=== PATIENT | male | born 1970 | race Two or more races ===

== ENCOUNTER 2020-04-12 06:30 | Day surgery (SDC) | payer OTHER, SELFPAY ==
--- NOTE | 2020-04-11 14:32 | HO.ANESPROP2 ---
Documented by User: Shahida Hackett 04/11/20 14:36 HPI - Anesthesia Eval Consult details Narrative: 49yo M for Spinal Stimulation Implant, Cervical s/p trial 08/11/19 with MAC PMFSH Past Medical History Medical History (Updated 04/11/20 @ 14:34 by Shahida Hackett) Bilateral carpal tunnel syndrome Depression Diabetes mellitus Elevated liver enzymes Insomnia Knee pain Low back pain Neck pain OSKAR on CPAP Polyarthralgia Pure hypercholesterolemia Family History Family History (Updated 03/07/20 @ 10:36 by GLORIA Thurston) Father Diabetes Hypertension Mother Diabetes Hypertension Maternal Grandmother Cancer Maternal Grandfather Cancer Paternal Uncle Stroke Brother No problems noted. Sister No problems noted. Sister No problems noted. Son No problems noted. Son No problems noted. Daughter No problems noted. Surgical History Surgical History (Updated 03/05/20 @ 12:50 by GLORIA Thurston) H/O shoulder surgery History of cervical spinal surgery Social History Social History Smoking Status: Former smoker Tobacco Type: Cigarette Use of substances other than those prescribed or required for medical reasons: No Advance Directives: No Advance Directives on File: No Meds Allergies Allergy/AdvReac Type Severity Reaction Status Date / Time aspirin [ASA] Allergy Severe ANAPHYLAXIS Unverified 03/07/20 11:13 gabapentin Allergy Unknown sore thoat Unverified 03/07/20 11:13 orphenadrine Allergy Unknown restless Unverified 03/07/20 11:13 legs ranitidine Allergy Unknown restless Verified 03/07/20 11:13 leg tramadol Allergy Unknown dry mouth, Verified 03/07/20 11:13 inadequate response Home Medications Medication Instructions Recorded Confirmed Type cane #1 ea 03/05/20 03/07/20 History cpap 6-16cm h20 #1 ea 03/05/20 03/07/20 History hydroxyzine HCl 25 mg tablet 25 mg PO BID 03/05/20 03/07/20 History trazodone 100 mg tablet 100 mg PO BEDTIME PRN 03/05/20 03/07/20 History vitamin E 200 unit capsule 400 unit PO DAILY cap 03/05/20 03/07/20 History blood sugar diagnostic #10 ea 03/07/20 03/07/20 History fluoxetine 20 mg capsule 60 mg PO DAILY 10/01/20 10/01/20 History hydroxyzine HCl 10 mg tablet 10 mg PO BID 03/07/20 03/07/20 History metformin tab PO 04/12/20 04/12/20 History Exam Exam Date and Time: April 11, 2020 1432 Pertinent Lab Results Pertinent Lab Results: Laboratory Tests 09/12/18 01/25/20 09:22 12:40 WBC 6.9 Hgb 14.2 Hct 42.6 Plt Count 212 Sodium 136 Potassium 4.4 Chloride 102 BUN 14 Creatinine 1.30 Assessment and Plan Assessment Anesthesia Assessment: Chart Reviewed Documented by User: Rowdy Ovalle 04/12/20 08:11 [facility] Past Medical History Medical History (Updated 04/11/20 @ 14:34 by Shahida Hackett) Bilateral carpal tunnel syndrome Depression Diabetes mellitus Elevated liver enzymes Insomnia Knee pain Low back pain Neck pain OSKAR on CPAP Polyarthralgia Pure hypercholesterolemia Family History Family History (Updated 03/07/20 @ 10:36 by GLORIA Thurston) Father Diabetes Hypertension Mother Diabetes Hypertension Maternal Grandmother Cancer Maternal Grandfather Cancer Paternal Uncle Stroke Brother No problems noted. Sister No problems noted. Sister No problems noted. Son No problems noted. Son No problems noted. Daughter No problems noted. Surgical History Surgical History (Updated 03/05/20 @ 12:50 by GLORIA Thurston) H/O shoulder surgery History of cervical spinal surgery Social History Social History Smoking Status: Former smoker Tobacco Type: Cigarette Use of substances other than those prescribed or required for medical reasons: No Advance Directives: No Advance Directives on File: No Meds Allergies Allergy/AdvReac Type Severity Reaction Status Date / Time aspirin [ASA] Allergy Severe ANAPHYLAXIS Unverified 03/07/20 11:13 gabapentin Allergy Unknown sore thoat Unverified 03/07/20 11:13 orphenadrine Allergy Unknown restless Unverified 03/07/20 11:13 legs ranitidine Allergy Unknown restless Verified 03/07/20 11:13 leg tramadol Allergy Unknown dry mouth, Verified 03/07/20 11:13 inadequate response Home Medications Medication Instructions Recorded Confirmed Type cane #1 ea 03/05/20 03/07/20 History cpap 6-16cm h20 #1 ea 03/05/20 03/07/20 History hydroxyzine HCl 25 mg tablet 25 mg PO BID 03/05/20 03/07/20 History trazodone 100 mg tablet 100 mg PO BEDTIME PRN 03/05/20 03/07/20 History vitamin E 200 unit capsule 400 unit PO DAILY cap 03/05/20 03/07/20 History blood sugar diagnostic #10 ea 03/07/20 03/07/20 History fluoxetine 20 mg capsule 60 mg PO DAILY 03/07/20 03/07/20 History hydroxyzine HCl 10 mg tablet 10 mg PO BID 03/07/20 03/07/20 History metformin tab PO 04/12/20 04/12/20 History Exam Airway Mallampati Class: III TM Dist: >3cm Neck ROM: Poor Heart: RRR Assessment and Plan Assessment Anesthesia Assessment: Anesthesia Plan Discussed (Minimal sedation per surgeon. Pt aware. ) Final Anesthetic Review NPO: Yes ASA Class: III Final Preanesthetic Review: No Changes in Pt Med Stat and Consent Obtained/Reviewed Anesthetic Plan Anesthetic Plan: MAC: Disposition: Standard PACU
[2020-04-12] VITALS (12 sets, daily range): BP systolic 98–121; BP diastolic 65–76; PULSE 70–87; RESP 16–18; TEMP 36.4–36.7; O2SAT 95–98; BMI 31.8
[2020-04-12 07:11] LABS: Glucose, Whole Blood 132 mg/dL (60-115)
[2020-04-12] MEDS: Lactated Ringers 1,000 ML 100 ML IVCONT (07:16)
--- NOTE | 2020-04-12 07:17 | FL_ITS ---
EXAMINATION: XR FLUOROSCOPY WITH IMAGES CLINICAL INFORMATION: Spinal stimulation implant. COMPARISON: None. TECHNIQUE: Fluoroscopy performed by Dr. Tricia Zapata. Fluoroscopy time: 8.1 minutes DAP: 55.0 mGycm2 Images: 3 FINDINGS: There are 3 digital images obtained revealing a spinal implant with 2 electrodes overlying C3-C5 vertebra. No gross bony abnormality seen. The paravertebral soft tissues are normal. FL/FL guidance in OR IMPRESSION: Fluoroscopy was provided to Dr. Tricia Zapata for spinal simulation implant.
--- NOTE | 2020-04-12 07:32 | MHC.SHP ---
Pre-Procedural Eval Section A The patient is an INPATIENT: No The History & Physical has been completed within 30 days and I have reviewed it.: No Section B Chief Complaint: SCS IMPLANT Details of Present Illness: cervial disk degeneranion, spondylosis of the cervical spine Relevant Family History (Specify if Yes): No Relevant Social History: None Present Medications: see Short Stay Collaborative assessment Medical History: No relevant PMH History of Previous Operations: Relevant previous surgery/procedure and date(s) Allergies: Allergies Allergy/AdvReac Type Severity Reaction Status Date / Time aspirin [ASA] Allergy Severe ANAPHYLAXIS Unverified 03/07/20 11:13 gabapentin Allergy Unknown sore thoat Unverified 03/07/20 11:13 orphenadrine Allergy Unknown restless Unverified 03/07/20 11:13 legs ranitidine Allergy Unknown restless Verified 03/07/20 11:13 leg tramadol Allergy Unknown dry mouth, Verified 03/07/20 11:13 inadequate response Review of Systems Sugical H&P ROS: Negative: Constitution, Cardiovascular, Respiratory, Neurological, Psychiatric, Hem-Onc, Allergic/Immunologic, Gastrointestinal, Genitourinary, Musculoskeletal, Integumentary, Endocrine and Eyes/Ears/Nose/Throat Exam Surgical H&P Exam: Normal: HEENT, Normal: Heart, Normal: Lungs, Normal: Extremities, Normal: Abdomen, Normal: Skin and Normal: Neurological Plan Diagnosis/Plan: Unchanged Patient has been examined and remains a candidate for the planned procedure
--- NOTE | 2020-04-12 11:40 | PM.OP ---
Brief Operative Note Date of procedure: 04/12/20 Pre-op diagnosis: ddd cervical spine, postlaminectomy syndrome, spondylosis cervical spine with radiculopathy. Post-op diagnosis: same Procedure: Implantation of spinal cord stimulator [employer] with to cervical leads and montage battery. Implants: As above Surgeon: Jeffrey Mann MD Anesthesia: MAC Estimated blood loss (mL): 20 Condition: stable Disposition: PACU
[2020-04-12] MEDS: oxyCODONE HCl Immed Release 5 MG TABLET 10 MG PO (12:25)
[2020-04-12] MEDS: fentaNYL citrate/PF 100 MCG/2 ML VIAL 50 MCG IVPUSH ×2 (12:25→12:30)
--- NOTE | 2020-04-12 13:22 | HO.POSTANES ---
Post Anesthesia Evaluation Post Anesthesia Evaluation Vital Signs: Vital Signs Temp Pulse Resp BP Pulse Ox 04/12/20 13:18 82 18 98/67 97 04/12/20 13:05 74 16 116/71 96 04/12/20 12:50 73 16 117/76 96 04/12/20 12:35 70 16 108/65 95 04/12/20 12:30 75 18 112/70 96 04/12/20 12:25 74 18 116/68 98 04/12/20 12:10 75 16 104/68 96 04/12/20 11:55 81 18 100/67 96 04/12/20 11:50 77 18 107/67 96 04/12/20 11:45 78 18 106/65 97 04/12/20 11:40 97.6 F 87 18 116/70 97 04/12/20 06:54 98.0 F 82 18 121/73 98 Anesthesia: Monitored Mental Status: Awake Pain Control: Satisfactory Nausea/Vomiting: None Hydration: Adequate Anesthesia-Related Issues: No Anes. Related Issues
--- NOTE | 2020-04-12 16:08 | P.OP_ITS ---
Operative Note Operative Note Narrative: Implantion of the spinal cord stimulator [employer] cervical position. Preoperatively patient received _2 g cefazolin _approximately 30 minutes before the procedure. After obtaining informed consent patient was brought to the operating room, she was positioned prone on operating table, [employer] monitors were applied and patient was deeply sedated. Time-out was performed delineating correct site, side, the nature of the procedure, patient's allergy, preoperative antibiotic. All operating room staff was participating in OR time-out procedure. Patient's entire back was prepped with ChloraPrep twice and draped with full body drape including Ioban film. Sterilely draped C-arm was brought over operating field and sqare picture of T6-T7 T8 vertebrae as were demonstrated on the screen. THE PROJECTION OF T7-T8 SPINAL PROCESSES TO THE SKIN WERE INFILTRATED WITH LIDOCAINE 2% MIXED WITH BUPIVACAINE 0.5%. Six CM LONG VERTICAL INCISION using 15 blade scalpel WAS PERFORMED IN STRICT MIDLINE VERTICAL FASHION. THOROUGH HEMOSTASIS WAS PERFORMED using electrocautery. Thorough tissue dissections was performed until prevertebral fascia was freed from overlying tissues. Attention FIRST was concentrated on the LEFT T6-T7 epidural interspace. The location of the projection of the right pedicle center of the T8 vertebra ON THE LEFT was found on the prevertebral fascia using C- arm. This location was injected with mixture of lidocaine 2% and Marcaine 0.5% 5 cc in approximate direction of needle advancement. After that 10 cm 14 gauge STRAIGHT introducer epidural needle was inserted through the fascia and advanced toward T12-L1 epidural interspace. The advancement of the needle was performed on anterior posterior and lateral views. Guitar wire and loss of resistance technique were used to locate epidural space. When guitar wire was spread in the epidural fashion, epidural lead was inserted through the skin and it was advanced to C3 position POSTERIOR EPIDURAL SPACE STRICTLY TO THE MIDLINE. significant difficulties were encountered with lead advancement, they were overcome by replacing the needle for the blue sheath introducer and advancing the lead with intermittent use of straight and curved stylets. THE POSITION OF THE LEAD WAS VERIFIED IN ANTERIOR POSTERIOR AND LATERAL VIEWS. After that location of the projection of the LEFT pedicle center of the T9 vertebra was found -using C-arm. This location was injected with mixture of lidocaine 2% and Marcaine 0.5% 5 cc.. . 10 cm 14 gauge curved introducer epidural needle was inserted through the fascia and advanced to T7-T8 epidural interspace. The advancement of the needle was performed on anterior posterior and lateral views. Guitar wire and loss of resistance technique were used to locate epidural space. When guitar wire was spread in the epidural fashion, epidural lead was inserted through the needle and advanced to the T8 POSTERIOR EPIDURAL SPACE SLIGHTLY right TO THE MIDLINE position 1st electrode. THE LOC ATION OF BOTH LEADS WAS VERIFIED ON ANTERIOR POSTERIOR AND LATERAL VIEWS. At this moment patient was awaken and the epidural leads were connected to the testing device. The patient reported stimulation corresponding to his pain. After satisfactory position of the leads were established the needle and blue sheath introducer were withdrawn, the stylette wires were removed from the epidural leads. The anchoring devices were dislodged on the leads and advanced to the level of the prevertebral fascia. The anchoring devices were advanced along the epidural leads and dislodged and epidural leads at the level of prevertebral fascia. They were sutured to prevertebral fascia with 2 separate Tycron sutures per each anchoring device. the locking screw on each anchoring device was tied after proper fixation of the anchoring device to the fascia was achieved. After that the wound was irrigated with copious amount of Vancomycin containing normal saline and packed with Vancomycin soaked 4 x 4. After that attention was concentrated on the Left loin. The patient wanted this battery in that position. . 6 cm long horizontal incision was performed 4 cm below the lowest position of the posterior rib on the left. Thorough hemostasis was obtained. The wound was irrigated with copious amount of Vancomycin contained normal saline. Tunneling device was used to connect the 2 wounds and epidural leads were dislodged into side wound. They were connected to the Montage battery and locked with a locking screwdriver device. After that the anchoring sutures Tycron were applied in the most superior medial and most superior lateral corners of the wound. After that they were connected to the anchoring holes on the body of the battery, the epidural leads were gathered behind the body of the montage battery, the battery and the leads were inserted into the pocket wound and after that the anchoring 2 sutures were tied. The wounds were irrigated again with Vancomycin containing normal saline, thorough hemostasis was checked, and after that the wounds were closed using 0 Polysorb. After that the skin edges wore approximated using 2 0 polysorb, eva were applied to the wounds at the level of the skin. Bacitracin ointment was applies to the level of the eva and sterile dressings were applied to the staple lines. MediPort tape were applied to hold the dressing to the patient's skin. Abdominal binder to wear was provided to the patient. cervical collar was given to the patient to wear as well. At this moment patient was awaken and padron sferred to the bed. He was recovering uneventfully in PACU.
== END 2020-04-12 13:50 | disposition home or self-care (01) ==
PROVIDERS: PCP Internal Medicine; Visit Provider Anesthesiology
PROC: (CPT 63685; principal; 2020-04-12 07:30)
DX: M54.12 Radiculopathy, cervical region (principal); M96.1 Postlaminectomy syndrome, not elsewhere classified; M75.41 Impingement syndrome of right shoulder; G47.33 Obstructive sleep apnea (adult) (pediatric); E11.9 Type 2 diabetes mellitus without complications; Z79.84 Long term (current) use of oral hypoglycemic drugs; Z79.899 Other long term (current) drug therapy; Z99.89 Dependence on other enabling machines and devices; Z88.8 Allergy status to other drugs, medicaments and biological substances; Z87.891 Personal history of nicotine dependence
CPT/HCPCS: 63685; 63650 ×2; 82947; C1778; J0131; J0690; J2250; J3010; J3370

== ENCOUNTER → 2020-04-18 12:54 | Outpatient (BNVA) | payer OTHER, SELFPAY | PROVIDERS: PCP Internal Medicine; Referring Provider Internal Medicine; Visit Provider Anesthesiology | DX: Z48.89 Encounter for other specified surgical aftercare (principal); M54.12 Radiculopathy, cervical region; M96.1 Postlaminectomy syndrome, not elsewhere classified; M54.16 Radiculopathy, lumbar region; M75.41 Impingement syndrome of right shoulder | CPT/HCPCS: 99212 ==

== ENCOUNTER → 2020-04-25 12:53 | Outpatient (BNVA) | payer OTHER, SELFPAY | PROVIDERS: PCP Internal Medicine; Referring Provider Internal Medicine; Visit Provider Anesthesiology | DX: Z48.89 Encounter for other specified surgical aftercare (principal); Z48.01 Encounter for change or removal of surgical wound dressing; M54.12 Radiculopathy, cervical region; M75.41 Impingement syndrome of right shoulder; M96.1 Postlaminectomy syndrome, not elsewhere classified; M54.16 Radiculopathy, lumbar region | CPT/HCPCS: 99212 ==

== ENCOUNTER 2020-05-15 14:13 | Outpatient (REF) | payer OTHER, SELFPAY | END 2020-05-15 14:14 | disposition home or self-care (01) | LOC: HO.LAB 14:13 | PROVIDERS: Visit Provider Internal Medicine | DX: Z20.828 Contact with and (suspected) exposure to other viral communicable diseases (principal) | CPT/HCPCS: C9803; U0003 ==

== ENCOUNTER 2020-06-14 14:52 | Outpatient (REF) | payer OTHER, SELFPAY ==
[2020-06-14 16:17] LABS: INTERNATIONAL NORM RATIO 1.1 (0.9-1.1); Prothrombin Time 12.6 SEC (10.8-13.0)
[2020-06-14 16:23] LABS: Alanine Aminotransferase 185 U/L (0-40); Albumin Level 4.3 g/dL (3.5-5.0); Alkaline Phosphatase 86 U/L (39-117); Aspartate Amino Transferase 65 U/L (5-37); Bilirubin Direct 0.2 mg/dL (0.0-0.5); Bilirubin Total 0.4 mg/dL (0.0-1.0); Total Protein 7.2 g/dL (6.5-8.0)
[2020-06-14 16:25] LABS: Alanine Aminotransferase 185 U/L (0-40); Albumin Level 4.3 g/dL (3.5-5.0); Alkaline Phosphatase 87 U/L (39-117); Anion Gap 13 (12-20); Aspartate Amino Transferase 67 U/L (5-37); Bilirubin Total 0.4 mg/dL (0.0-1.0); Blood Urea Nitrogen 15 mg/dL (9-16); Calcium 8.9 mg/dL (8.4-10.2); Carbon Dioxide 26 mmol/L (22-29); Chloride 101 mmol/L (96-108); Cholesterol 202 mg/dL; Estimated Glomerular Filt Rate > 60; Glucose Fasting 215 mg/dL (60-99); HDL Cholesterol 38 mg/dL; LDL Cholesterol Calculated 116 mg/dl; Potassium 4.7 mmol/l (3.3-5.1); Sodium 135 mmol/L (135-145); Total Protein 7.1 g/dL (6.5-8.0); Triglycerides 244 mg/dL
[2020-06-14 16:48] LABS: Creatinine Urine 194.14 mg/dL; Microalbum/Creatinine Ratio Ur 2.5 ug/mg cr
== END 2020-06-14 14:53 | disposition home or self-care (01) ==
LOC: HO.LAB 14:52
PROVIDERS: PCP Internal Medicine; Visit Provider Internal Medicine
DX: E11.9 Type 2 diabetes mellitus without complications (principal); K76.0 Fatty (change of) liver, not elsewhere classified; R74.8 Abnormal levels of other serum enzymes
CPT/HCPCS: 36415; 80053; 80061; 80076; 82043; 82248; 85610

== ENCOUNTER 2020-07-05 11:06 | Outpatient (REF) | payer OTHER, SELFPAY ==
[2020-07-05 12:31] LABS: Alanine Aminotransferase 146 U/L (0-40); Albumin Level 4.3 g/dL (3.5-5.0); Alkaline Phosphatase 81 U/L (39-117); Anion Gap 12 (12-20); Aspartate Amino Transferase 52 U/L (5-37); Blood Urea Nitrogen 12 mg/dL (9-16); Calcium 9.2 mg/dL (8.4-10.2); Carbon Dioxide 28 mmol/L (22-29); Chloride 103 mmol/L (96-108); Cholesterol 200 mg/dL; Estimated Glomerular Filt Rate > 60; Glucose Fasting 125 mg/dL (60-99); HDL Cholesterol 38 mg/dL; LDL Cholesterol Calculated 131 mg/dl; Potassium 4.7 mmol/L (3.3-5.1); Sodium 138 mmol/L (135-145); Total Protein 7.2 g/dL (6.5-8.0); Triglycerides 155 mg/dL
== END 2020-07-05 11:07 | disposition home or self-care (01) ==
LOC: HO.LAB 11:06
PROVIDERS: PCP Internal Medicine; Visit Provider Internal Medicine
DX: E11.9 Type 2 diabetes mellitus without complications (principal)
CPT/HCPCS: 36415; 80053; 80061; 82043

== ENCOUNTER 2020-07-10 10:30 | Outpatient (REF) | payer OTHER, SELFPAY ==
[2020-07-10 10:54] LABS: MANUAL DIFF FLAG NO
[2020-07-10 11:01] LABS: Basophils Percent Auto 0.4 % (0-2); Eosinophils Absolute Auto 0.2 X10*3/uL (0.0-0.4); Eosinophils Percent Auto 2.1 % (0-4); Hematocrit 44.2 % (42-52); Hemoglobin 14.3 g/dl (14.0-18.0); Imm Gran Abs Auto 0.01 X10*3/uL (0.00-0.03); Imm Gran Pct Auto 0.1 % (0.0-0.4); Lymphocytes Absolute Auto 2.2 X10*3/uL (1.2-4.9); Lymphocytes Percent Auto 31.3 % (20-40); Mean Corpuscular HGB Conc 32.4 g/dl (31.0-36.0); Mean Corpuscular Hemoglobin 26.5 pg (27.0-33.0); Mean Corpuscular Volume 81.9 fL (80-98); Monocytes Absolute Auto 0.6 X10*3/uL (0.1-1.2); Monocytes Percent Auto 8.7 % (2-11); Neutrophils Absolute Auto 4.1 X10*3/uL (2.0-8.3); Neutrophils Percent Auto 57.4 % (45-73); Platelet Count 216 X10*3/uL (160-400); Red Cell Distribution Width 12.3 % (11.0-16.0); White Blood Count 7.1 X10*3/uL (4.8-10.8)
[2020-07-10 11:28] LABS: Alanine Aminotransferase 119 U/L (0-40); Albumin Level 4.2 g/dL (3.5-5.0); Alkaline Phosphatase 80 U/L (39-117); Aspartate Amino Transferase 47 U/L (5-37); Bilirubin Direct 0.3 mg/dL (0.0-0.5); Bilirubin Total 0.7 mg/dL (0.0-1.0)
[2020-07-10 11:41] LABS: Partial Thromboplastin Time 33.8 SEC (24.1-38.0)
== END 2020-07-10 10:31 | disposition home or self-care (01) ==
LOC: HO.LAB 10:30
PROVIDERS: PCP Internal Medicine; Visit Provider Internal Medicine
DX: K76.0 Fatty (change of) liver, not elsewhere classified (principal); R79.89 Other specified abnormal findings of blood chemistry
CPT/HCPCS: 36415; 80076; 85025; 85610; 85730

== ENCOUNTER 2020-07-15 07:35 | Day surgery (SDC) | payer OTHER, SELFPAY ==
[2020-07-15] VITALS (9 sets, daily range): BP systolic 103–128; BP diastolic 69–81; PULSE 68–79; RESP 13–16; TEMP 36.4–36.6; O2SAT 93–98; BMI 31.2
--- NOTE | ~2020-07-15 | US_ITS ---
EXAMINATION: ULTRASOUND-GUIDED LIVER CORE BIOPSY CLINICAL INFORMATION: Elevated LFTs . Fatty liver COMPARISON: None TECHNIQUE: Following explaining ultrasound-guided liver biopsy procedure, benefits and risk to the patient, a written consent was obtained. Patient was placed supine on ultrasound stretcher and preliminary ultrasound imaging was obtained. An optimal site was selected along the intercostal margin laterally and marked. The marked site was cleaned and draped in usual sterile manner. 1% lidocaine was injected puncture site. Through a small skin incision a 13-gauge guide needle was advanced skin patient to hold breath under sterile ultrasound guidance. After observing needle tip in the liver, stylet was withdrawn and a second 18-gauge biopsy needle was advanced through the guide needle and a 2 pass core biopsies performed. Postprocedure the guide needle was withdrawn and complete hemostasis achieved at puncture site. Patient on procedure extremely well. Conscious sedation with 1 mg of Versed and 15 mg of fentanyl was administered during the exam. FINDINGS: On initial liver imaging there is diffuse infiltration of liver with no focal lesion or intrahepatic ductal dilatation seen. Coaxial right hepatic lobe core biopsy was performed x2. Sample collected and sent to lab for further analysis. US/US biopsy liver IMPRESSION: Successful ultrasound-guided hepatic lobe 2 pass core biopsy performed with 18-gauge needle. There were no immediate complications.
[2020-07-15 08:17] LABS: Glucose, Whole Blood 136 mg/dL (60-115)
[2020-07-15 08:29] LABS: MANUAL DIFF FLAG NO
[2020-07-15 08:36] LABS: Basophils Percent Auto 0.4 % (0-2); Eosinophils Absolute Auto 0.2 X10*3/uL (0.0-0.4); Eosinophils Percent Auto 1.8 % (0-4); Hematocrit 45.8 % (42-52); Hemoglobin 14.6 g/dl (14.0-18.0); Imm Gran Abs Auto 0.02 X10*3/uL (0.00-0.03); Imm Gran Pct Auto 0.2 % (0.0-0.4); Lymphocytes Absolute Auto 2.6 X10*3/uL (1.2-4.9); Lymphocytes Percent Auto 28.7 % (20-40); Mean Corpuscular HGB Conc 31.9 g/dl (31.0-36.0); Mean Corpuscular Hemoglobin 26.4 pg (27.0-33.0); Mean Corpuscular Volume 82.8 fL (80-98); Mean Platelet Volume 10.2 fL (9.4-12.4); Monocytes Absolute Auto 0.7 X10*3/uL (0.1-1.2); Monocytes Percent Auto 7.9 % (2-11); Neutrophils Absolute Auto 5.6 X10*3/uL (2.0-8.3); Platelet Count 246 X10*3/uL (160-400); Red Blood Count 5.53 X10*6/uL (4.60-5.80); Red Cell Distribution Width 12.1 % (11.0-16.0); White Blood Count 9.1 X10*3/uL (4.8-10.8)
[2020-07-15 08:40] LABS: Prothrombin Time 12.1 SEC (10.8-13.0)
[2020-07-15 08:43] LABS: Partial Thromboplastin Time 35.5 SEC (24.1-38.0)
== END 2020-07-15 14:16 | disposition home or self-care (01) ==
PROVIDERS: Radiology Diagnostic Radiology; PCP Internal Medicine; Visit Provider Radiology Diagnostic Radiology
DX: R94.5 Abnormal results of liver function studies (principal); K76.0 Fatty (change of) liver, not elsewhere classified; E11.9 Type 2 diabetes mellitus without complications
CPT/HCPCS: 36415; 47000; 76942; 82947; 85025; 85610; 85730; 88307; 88313; 99152; J2250; J3010

== ENCOUNTER 2020-07-24 10:55 | Outpatient (REF) | payer OTHER, SELFPAY ==
--- NOTE | ~2020-07-24 | XR_ITS ---
EXAMINATION: BILATERAL KNEE X-RAY CLINICAL INFORMATION: Pain COMPARISON: Previous exam August 2017 TECHNIQUE: 3 views each knee FINDINGS: Right: Bone alignment is normal. No fracture or dislocation is seen. Joint spaces are normal. There is a small osteophyte at the quadriceps tendon insertion to the patella. There is no joint effusion. Left knee: Bone alignment is normal. No fracture or dislocation is seen. Joint spaces are normal. There is an osteophyte at the quadriceps tendon insertion to the patella. There is no joint effusion. There is soft tissue calcification lateral to the knee joint. XR/XR knee RT 3V IMPRESSION: Bilateral osteophytes at the quadriceps tendon insertion to the patella, left greater than right. Otherwise unremarkable exam.
--- NOTE | ~2020-07-24 | XR_ITS ---
EXAMINATION: XR SHOULDER, RIGHT CLINICAL INFORMATION: Pain COMPARISON: Previous right shoulder x-ray October 2018 TECHNIQUE: AP external rotation, Grashey, scapular Y, and axillary views of the right shoulder. FINDINGS: Bone alignment is normal. No fracture or dislocation is seen. There is a surgical anchor or tack projecting over the humeral head. Joint spaces are normal. Soft tissues are normal. XR/XR shoulder RT min 2V IMPRESSION: Surgical anchor or tack projecting over the right humeral head. Otherwise unremarkable exam.
--- NOTE | ~2020-07-24 | XR_ITS ---
EXAMINATION: BILATERAL KNEE X-RAY CLINICAL INFORMATION: Pain COMPARISON: Previous exam August 2017 TECHNIQUE: 3 views each knee FINDINGS: Right: Bone alignment is normal. No fracture or dislocation is seen. Joint spaces are normal. There is a small osteophyte at the quadriceps tendon insertion to the patella. There is no joint effusion. Left knee: Bone alignment is normal. No fracture or dislocation is seen. Joint spaces are normal. There is an osteophyte at the quadriceps tendon insertion to the patella. There is no joint effusion. There is soft tissue calcification lateral to the knee joint. XR/XR knee LT 3V IMPRESSION: Bilateral osteophytes at the quadriceps tendon insertion to the patella, left greater than right. Otherwise unremarkable exam.
== END 2020-07-24 10:56 | disposition home or self-care (01) ==
LOC: HO.XRAY 10:55
PROVIDERS: PCP Internal Medicine; Visit Provider Internal Medicine
DX: M25.561 Pain in right knee (principal); M25.562 Pain in left knee; M25.511 Pain in right shoulder
CPT/HCPCS: 73030; 73562

== ENCOUNTER → 2020-07-25 11:26 | Outpatient (BNVA) | payer OTHER, SELFPAY | PROVIDERS: Visit Provider Orthopaedic Surgery | DX: M25.511 Pain in right shoulder (principal); M25.50 Pain in unspecified joint; M96.1 Postlaminectomy syndrome, not elsewhere classified; E11.9 Type 2 diabetes mellitus without complications | CPT/HCPCS: 20610; 99212; J1100 ==

== ENCOUNTER 2020-10-15 11:12 | Outpatient (REF) | payer OTHER, SELFPAY ==
[2020-10-15 12:19] LABS: Alanine Aminotransferase 51 U/L (0-40); Albumin Level 4.3 g/dL (3.5-5.0); Alkaline Phosphatase 86 U/L (39-117); Aspartate Amino Transferase 27 U/L (5-37); Bilirubin Direct 0.3 mg/dL (0.0-0.5); Total Protein 7.1 g/dL (6.5-8.0)
[2020-10-15 12:23] LABS: Creatinine Urine 290.99 mg/dL; Microalbum/Creatinine Ratio Ur 2.4 ug/mg cr
[2020-10-15 12:57] LABS: Alanine Aminotransferase 51 U/L (0-40); Albumin Level 4.3 g/dL (3.5-5.0); Alkaline Phosphatase 86 U/L (39-117); Anion Gap 13 (12-20); Aspartate Amino Transferase 27 U/L (5-37); Bilirubin Total 1.1 mg/dL (0.0-1.0); Blood Urea Nitrogen 17 mg/dL (9-16); Calcium 9.3 mg/dL (8.4-10.2); Carbon Dioxide 27 mmol/L (22-29); Chloride 102 mmol/L (96-108); Cholesterol 212 mg/dL; Estimated Glomerular Filt Rate > 60; Glucose Fasting 98 mg/dL (60-99); HDL Cholesterol 37 mg/dL; LDL Cholesterol Calculated 145 mg/dl; Potassium 4.7 mmol/L (3.3-5.1); Sodium 137 mmol/L (135-145); Total Protein 7.1 g/dL (6.5-8.0); Triglycerides 154 mg/dL
== END 2020-10-15 11:13 | disposition home or self-care (01) ==
LOC: HO.LAB 11:12
PROVIDERS: Absent Provider Internal Medicine; PCP Internal Medicine; Visit Provider Internal Medicine
DX: E11.9 Type 2 diabetes mellitus without complications (principal); E78.5 Hyperlipidemia, unspecified; K76.0 Fatty (change of) liver, not elsewhere classified; R74.8 Abnormal levels of other serum enzymes
CPT/HCPCS: 36415; 80053; 80061; 80076; 82043; 82248

== ENCOUNTER → 2020-10-24 11:24 | Outpatient (BNVA) | payer OTHER, SELFPAY | PROVIDERS: PCP Internal Medicine; Visit Provider Orthopaedic Surgery | DX: Z98.890 Other specified postprocedural states (principal) | CPT/HCPCS: 99212 ==

== ENCOUNTER → 2020-10-28 10:04 | Outpatient (BNVA) | payer OTHER, SELFPAY | PROVIDERS: PCP Internal Medicine; Visit Provider Anesthesiology | DX: M96.1 Postlaminectomy syndrome, not elsewhere classified (principal); M54.12 Radiculopathy, cervical region; M75.41 Impingement syndrome of right shoulder; M54.16 Radiculopathy, lumbar region | CPT/HCPCS: 99212 ==

== ENCOUNTER 2020-11-06 10:23 | Outpatient (REF) | payer OTHER, SELFPAY ==
--- NOTE | ~2020-11-06 | XR_ITS ---
EXAMINATION: XR CERVICAL SPINE CLINICAL INFORMATION: Post laminectomy syndrome. COMPARISON: None TECHNIQUE: Three views of the cervical spine were obtained. FINDINGS: There is mild straightening of cervical lordosis. There is ventral plate and screws from C5 through C6 vertebrae for fusion with integration of intervening bone graft. There is a posterior epidural electrode extending to the C3 superior endplate. There is no visible acute fracture, dislocation or subluxation seen. The soft tissues are unremarkable. XR/XR cervical spine 2V IMPRESSION: C5 and C6 disc fusion with ventral plate and screws in satisfactory alignment. There are posterior epidural electrodes with their tips extending to the C3 superior endplate. No visible acute fracture, dislocation or subluxation seen.
== END 2020-11-06 10:24 | disposition home or self-care (01) ==
LOC: HO.XRAY 10:23
PROVIDERS: PCP Internal Medicine; Visit Provider Anesthesiology
DX: M54.12 Radiculopathy, cervical region (principal); M96.1 Postlaminectomy syndrome, not elsewhere classified
CPT/HCPCS: 72040

== ENCOUNTER 2020-11-22 12:42 | Outpatient (REF) | payer OTHER, SELFPAY ==
--- NOTE | ~2020-11-22 | MR_ITS ---
EXAMINATION: MR SHOULDER WITHOUT CONTRAST, RIGHT CLINICAL INFORMATION: History of rotator cuff repair. Right shoulder pain. Decreased range of motion. COMPARISON: Right shoulder MRI dated August 22, 2018. Right shoulder radiograph dated 07/24/2020. TECHNIQUE: MRI of the shoulder without contrast was performed on a high-field scanner. FINDINGS: Rotator cuff: Sequelae of prior rotator cuff repair. Low-grade articular surface fraying the mid infraspinatus tendon fibers (6:14). Mild tendon attenuation at the supraspinatus/infraspinatus junction. No evidence of full-thickness re-tear. Mild subscapularis tendinosis. Intact teres minor tendon. No rotator cuff muscle atrophy or fatty infiltration is identified. Labrum: No labral tear is identified. Posterior labrum is diminutive, unchanged. Biceps: The long head biceps tendon is positioned within the bicipital groove, with the contour, course, caliber, and signal intensity within normal limits. Ligament/Capsule: No capsular thickening or pericapsular edema. Rotator cuff interval fat is preserved. Bone/Cartilage: No Hill Sachs or osseous Bankart lesion is identified. The bone marrow signal intensity is within normal limits. No full-thickness cartilage defect is seen. Acromioclavicular joint: There is no acromioclavicular hypertrophy. No subjacent marrow edema. Type II acromial morphology with postsurgical decompression changes. No associated subacromial osteophyte formation is noted. Miscellaneous: No subacromial/subdeltoid bursal fluid accumulation. Quadrilateral space, suprascapular notch and spinoglenoid notch are normal in appearance. MR/MR shoulder RT wo con IMPRESSION: Right shoulder: 1. Sequelae of prior rotator cuff repair. Mild attenuation of the tendons at the supraspinatus/infraspinatus junction presumed sequelae of prior repair. Low grade articular surface fraying in the posterior infraspinatus tendon fibers. Mild subscapularis tendinosis. 2. Normal long head biceps tendon and intact biceps labral complex. 3. Intact labrum. 4. Preserved glenohumeral joint articular cartilage. 5. No significant acromioclavicular joint arthrosis.
== END 2020-11-22 12:43 | disposition home or self-care (01) ==
LOC: HO.MRI 12:42
PROVIDERS: Visit Provider Orthopaedic Surgery
DX: Z98.890 Other specified postprocedural states (principal)
CPT/HCPCS: 73221

== ENCOUNTER 2020-11-29 11:13 | Outpatient (REF) | payer OTHER, SELFPAY ==
[2020-11-29 12:47] LABS: Alanine Aminotransferase 45 U/L (0-40); Albumin Level 4.1 g/dL (3.5-5.0); Alkaline Phosphatase 81 U/L (39-117); Aspartate Amino Transferase 26 U/L (5-37); Bilirubin Direct 0.2 mg/dL (0.0-0.5); Bilirubin Total 0.5 mg/dL (0.0-1.0)
== END 2020-11-29 11:14 | disposition home or self-care (01) ==
LOC: HO.LAB 11:13
PROVIDERS: PCP Internal Medicine; Visit Provider Internal Medicine
DX: K76.0 Fatty (change of) liver, not elsewhere classified (principal); R74.8 Abnormal levels of other serum enzymes
CPT/HCPCS: 36415; 80076

== ENCOUNTER → 2020-12-02 14:46 | Outpatient (BNVA) | payer OTHER, SELFPAY | PROVIDERS: PCP Internal Medicine; Visit Provider Orthopaedic Surgery | DX: Z98.890 Other specified postprocedural states (principal) | CPT/HCPCS: 99212 ==

== ENCOUNTER 2021-04-28 09:43 | Outpatient (REF) | payer OTHER, SELFPAY ==
[2021-04-28 09:57] LABS: MANUAL DIFF FLAG NO
[2021-04-28 10:11] LABS: Basophils Percent Auto 0.5 % (0-2); Eosinophils Absolute Auto 0.2 X10*3/uL (0.0-0.4); Eosinophils Percent Auto 3.3 % (0-4); Hematocrit 43.1 % (42.0-52.0); Hemoglobin 13.9 g/dl (14.0-18.0); Imm Gran Abs Auto 0.01 X10*3/uL (0.00-0.03); Imm Gran Pct Auto 0.2 % (0.0-0.4); Lymphocytes Absolute Auto 1.6 X10*3/uL (1.2-4.9); Lymphocytes Percent Auto 25.8 % (20-40); Mean Corpuscular HGB Conc 32.3 g/dl (31.0-36.0); Mean Corpuscular Hemoglobin 26.6 pg (27.0-33.0); Mean Corpuscular Volume 82.6 fL (80.0-98.0); Mean Platelet Volume 9.8 fL (9.4-12.4); Monocytes Absolute Auto 0.6 X10*3/uL (0.1-1.2); Monocytes Percent Auto 9.8 % (2-11); Neutrophils Absolute Auto 3.8 x10*3/uL (2.0-8.3); Neutrophils Percent Auto 60.4 % (45-73); Platelet Count 231 X10*3/uL (160-400); Red Blood Count 5.22 X10*6/uL (4.60-5.80); Red Cell Distribution Width 12.2 % (11.0-16.0); White Blood Count 6.4 X10*3/uL (4.8-10.8)
[2021-04-28 10:37] LABS: Alanine Aminotransferase 47 U/L (0-40); Albumin Level 4.3 g/dL (3.5-5.0); Alkaline Phosphatase 82 U/L (39-117); Aspartate Amino Transferase 24 U/L (5-37); Bilirubin Direct 0.2 mg/dL (0.0-0.5); Bilirubin Total 0.4 mg/dL (0.0-1.0); Cholesterol 224 mg/dL; HDL Cholesterol 32 mg/dL; LDL Cholesterol Calculated 162 mg/dl; Total Protein 7.2 g/dL (6.5-8.0); Triglycerides 153 mg/dL
[2021-04-28 10:50] LABS: Creatinine Urine 408.51 mg/dL; Microalbum/Creatinine Ratio Ur 3.4 ug/mg cr
[2021-05-02 14:11] LABS: Vitamin D 25-OH, D2 <4 ng/mL; Vitamin D 25-OH, D3 26 ng/mL; Vitamin D 25-OH, Total 26 ng/mL (30-100)
== END 2021-04-28 09:44 | disposition home or self-care (01) ==
LOC: HO.LAB 09:43
PROVIDERS: Absent Provider Internal Medicine; PCP Internal Medicine; Visit Provider Internal Medicine
DX: M25.511 Pain in right shoulder (principal); E78.5 Hyperlipidemia, unspecified; E55.9 Vitamin D deficiency, unspecified; K76.0 Fatty (change of) liver, not elsewhere classified; R74.8 Abnormal levels of other serum enzymes; E11.9 Type 2 diabetes mellitus without complications
CPT/HCPCS: 36415; 80061; 80076; 82043; 82306; 85025

== ENCOUNTER 2022-02-17 10:04 | Outpatient (REF) | payer MEDICARE, MEDICAID, SELFPAY ==
[2022-02-17 11:17] LABS: Alanine Aminotransferase 88 U/L (0-40); Albumin Level 4.4 g/dL (3.5-5.0); Alkaline Phosphatase 86 U/L (39-117); Anion Gap 15 (12-20); Aspartate Amino Transferase 37 U/L (5-37); Bilirubin Total 0.6 mg/dL (0.0-1.0); Blood Urea Nitrogen 14 mg/dL (9-16); Calcium 9.8 mg/dL (8.4-10.2); Carbon Dioxide 29 mmol/L (22-29); Chloride 99 mmol/L (96-108); Cholesterol 239 mg/dL; Estimated Glomerular Filt Rate > 60; Glucose Fasting 158 mg/dL (60-99); HDL Cholesterol 35 mg/dL; LDL Cholesterol Calculated 156 mg/dl; Potassium 4.8 mmol/L (3.3-5.1); Sodium 138 mmol/L (135-145); Total Protein 7.5 g/dL (6.5-8.0); Triglycerides 240 mg/dL
[2022-02-17 11:29] LABS: Vitamin D 25-OH Total 35.4 ng/mL (>30)
[2022-02-17 12:44] LABS: Creatinine Urine 246.17 mg/dL; Microalbum/Creatinine Ratio Ur 3.6 ug/mg cr
== END 2022-02-17 10:05 | disposition home or self-care (01) ==
LOC: HO.LAB 10:04
PROVIDERS: PCP Internal Medicine; Visit Provider Internal Medicine
DX: E11.9 Type 2 diabetes mellitus without complications (principal); E55.9 Vitamin D deficiency, unspecified; E78.5 Hyperlipidemia, unspecified
CPT/HCPCS: 36415; 80053; 80061; 82043; 82306

== ENCOUNTER 2022-05-14 11:47 | Outpatient (REF) | payer MEDICARE, MEDICAID, SELFPAY ==
[2022-05-14 16:05] LABS: Microalbum/Creatinine Ratio Ur 4.2 ug/mg cr
[2022-05-14 18:36] LABS: Alanine Aminotransferase 88 U/L (0-40); Albumin Level 4.2 g/dL (3.5-5.0); Alkaline Phosphatase 88 U/L (39-117); Anion Gap 11 (12-20); Aspartate Amino Transferase 43 U/L (5-37); Bilirubin Total 0.6 mg/dL (0.0-1.0); Blood Urea Nitrogen 11 mg/dL (9-16); Calcium 9.2 mg/dL (8.4-10.2); Carbon Dioxide 30 mmol/L (22-29); Chloride 102 mmol/L (96-108); Cholesterol 227 mg/dL; Estimated Glomerular Filt Rate > 60; Glucose Fasting 128 mg/dL (60-99); HDL Cholesterol 32 mg/dL; LDL Cholesterol Calculated 148 mg/dl; Potassium 4.6 mmol/L (3.3-5.1); Sodium 138 mmol/L (135-145); Total Protein 6.9 g/dL (6.5-8.0); Triglycerides 239 mg/dL; Vitamin D 25-OH Total 27.3 ng/mL (>30)
== END 2022-05-14 11:48 | disposition home or self-care (01) ==
LOC: HO.LAB 11:47
PROVIDERS: PCP Internal Medicine; Visit Provider Internal Medicine
DX: E11.9 Type 2 diabetes mellitus without complications (principal); E78.5 Hyperlipidemia, unspecified; E55.9 Vitamin D deficiency, unspecified
CPT/HCPCS: 36415; 80053; 80061; 82043; 82306

== ENCOUNTER → 2022-07-20 12:49 | Outpatient (BNVA) | payer MEDICARE, MEDICAID, SELFPAY | PROVIDERS: PCP Internal Medicine; Visit Provider Orthopaedic Surgery | DX: M65.321 Trigger finger, right index finger (principal); M65.331 Trigger finger, right middle finger | CPT/HCPCS: 20550; 99212; J1100 ==

== ENCOUNTER 2022-07-23 08:49 | Outpatient (REF) | payer MEDICARE, MEDICAID, SELFPAY ==
--- NOTE | ~2022-07-23 | US_ITS ---
EXAMINATION: US ABDOMEN LIMITED CLINICAL INFORMATION: Ventral hernia without obstruction or gangrene. COMPARISON: MRI abdomen 03/23/2018. TECHNIQUE: Real-time imaging of the midline epigastric region. FINDINGS: There is a mild diastases rectus. The cutaneous, subcutaneous, muscular and fascial planes are otherwise unremarkable. No mass, fluid collection or hernia defect is seen. There is no lymphadenopathy. No foreign body is seen. US/US abdomen limited IMPRESSION: Unremarkable examination. No focal hernia defect is identified.
== END 2022-07-23 08:50 | disposition home or self-care (01) ==
LOC: HO.US 08:49
PROVIDERS: Visit Provider Internal Medicine
DX: K43.9 Ventral hernia without obstruction or gangrene (principal)
CPT/HCPCS: 76705

== ENCOUNTER → 2022-10-21 10:34 | Outpatient (BNVA) | payer MEDICARE, MEDICAID, SELFPAY | PROVIDERS: PCP Internal Medicine; Visit Provider Orthopaedic Surgery | DX: M65.321 Trigger finger, right index finger (principal); M65.331 Trigger finger, right middle finger | CPT/HCPCS: 99212 ==

== ENCOUNTER 2022-11-08 15:49 | Emergency (ER) | payer MEDICARE, MEDICAID, SELFPAY ==
--- NOTE | ~2022-11-08 | XR_ITS ---
EXAMINATION: XR FOOT, RIGHT CLINICAL INFORMATION: Second toe pain COMPARISON: None available. TECHNIQUE: AP, lateral, and oblique views of the right foot. FINDINGS: Acute nondisplaced fracture is seen within the distal metaphysis of the second distal phalanx extending to the PIP joint space. Joint spaces otherwise well-maintained. Soft tissue swelling is noted. XR/XR foot RT 2V IMPRESSION: Acute nondisplaced fracture of the second proximal phalanx as described above
[2022-11-08 15:59] VITALS: BP 125/84; PULSE 90; RESP 18; TEMP 36.9; O2SAT 98; BMI 31.9
--- NOTE | 2022-11-08 16:02 | ED.GENADULT ---
HPI - General Adult General Chief complaint: Wound/Laceration Stated complaint: right toe infection? Time Seen by Provider: 11/08/22 16:08 Source: patient, RN notes reviewed and old records reviewed Mode of arrival: ambulatory History of Present Illness HPI narrative: 52-year-old male with a past medical history allergic rhinitis, depression, fibromyalgia, HTN, diabetes, HLD presenting to the ED complaining of right 2nd toe swelling, ecchymosis, erythema, and pain s/p hitting on a table 6 days ago. Reports increasing pain and mild paresthesias. Denies weakness, numbness, fever/chills Onset (ago): day(s) Related Data Home Medications Medication Instructions Recorded Confirmed cane #1 ea 03/05/20 07/01/22 cpap 6-16cm h20 #1 ea 03/05/20 07/01/22 hydroxyzine HCl 25 mg tablet 25 mg PO BID 03/05/20 07/01/22 vitamin E 200 unit capsule 400 unit PO DAILY 03/05/20 07/01/22 fluoxetine 20 mg capsule 60 mg PO DAILY 03/07/20 07/01/22 polyethylene glycol 3350 17 1 g PO BID constipation 10/24/20 07/01/22 gram/dose oral powder Previous Rx's Medication Instructions Recorded fluocinolone acetonide oil 0.01 % 5 drp otic (ear) left BID 7 days 07/02/21 ear drops #20 mL cholecalciferol (vitamin D3) 25 25 mcg PO DAILY 90 days #90 caps 09/01/21 mcg (1,000 unit) capsule blood-glucose meter (FreeStyle #1 ea 09/14/21 Lite Meter kit) lisinopril 5 mg tablet 5 mg PO DAILY 90 days #90 tabs 01/02/22 guaifenesin 600 mg tablet, 600 mg PO Q12H PRN congestion 10 07/01/22 extended release 12 hr (Mucinex) days #20 tabs metformin 500 mg tablet 1,000 mg PO BID 90 days #360 tabs 07/01/22 lancets 28 gauge (FreeStyle 28 gauge topical BID 30 days #100 07/02/22 Lancets) caps blood pressure monitor #1 ea 07/23/22 rosuvastatin 40 mg tablet 40 mg PO DAILY 90 days #90 tabs 08/26/22 trazodone 150 mg tablet 150 mg PO BEDTIME PRN sleep 90 08/26/22 days #90 tabs loratadine 10 mg tablet (Allergy 10 mg PO DAILY 90 days #90 tabs 10/04/22 Relief (loratadine)) oxycodone 5 mg tablet 5 mg PO TID PRN pain 30 days #90 10/08/22 tabs pregabalin 75 mg capsule 75 mg PO BID 30 days #60 caps 10/08/22 blood sugar diagnostic (FreeStyle 1 strip miscellaneous BID 30 days 11/07/22 Lite Strips) #100 strips cephalexin 500 mg capsule 500 mg PO QID 7 days #28 caps 11/08/22 Allergies Allergy/AdvReac Type Severity Reaction Status Date / Time aspirin [ASA] Allergy Severe ANAPHYLAXIS Verified 10/21/22 10:58 gabapentin Allergy Intermediate sore thoat Verified 10/21/22 10:58 orphenadrine Allergy Intermediate restless Verified 10/21/22 10:58 legs ranitidine Allergy Intermediate restless Verified 10/21/22 10:58 leg tramadol Allergy Intermediate dry mouth, Verified 10/21/22 10:58 inadequate response Review of Systems Review of Systems: Constitutional: No Fever, No Chills ENT/Mouth: No Ear Pain, No Nasal Congestion, No sore throat, No Rhinorrhea, No Swallowing Difficulty Cardiovascular: No Chest Pain, No SOB Respiratory: No Cough, No Sputum, No Wheezing Gastrointestinal: No Nausea, No Vomiting, No Diarrhea, No Constipation, No Abdominal pain Musculoskeletal: + joint pain, No Myalgias, + Joint Swelling Skin: No Skin Lesions, No rash Neuro: No Weakness, No Numbness, No Paresthesias Yes all other systems are reviewed and are negative Constitutional: Constitutional: Reports as per [facility] Past Medical History Attestation statement: The following information was validated with the patient. Source: old records reviewed Medical History Allergic rhinitis Bilateral carpal tunnel syndrome Cervical postlaminectomy syndrome Depression Diabetes mellitus Elevated liver enzymes Essential hypertension Fibromyalgia Hypovitaminosis D Impingement syndrome of right shoulder Insomnia Knee pain Left knee pain Low back pain Mild depression Neck pain OSKAR on CPAP Polyarthralgia Pure hypercholesterolemia Radiculopathy, cervical Radiculopathy, lumbar region Right knee pain Right shoulder pain Spinal cord stimulator status Surgical History H/O rotator cuff surgery H/O shoulder surgery History of cervical spinal surgery Family History Family History Father Diabetes Hypertension Mother Diabetes Hypertension Maternal Grandmother Cancer Maternal Grandfather Cancer Paternal Uncle Stroke Brother No problems noted. Sister No problems noted. Sister No problems noted. Son No problems noted. Son No problems noted. Daughter No problems noted. Social History Social History Housing: Apartment Alcohol intake: never Patient Tobacco Use Status: Former Tobacco user Tobacco use type: Cigarette e-Cigarette/Vaping Use: Never Used Second Hand Smoke Exposure: No Advance Directives: No Advance Directives Information Provided: No service: No Current occupational status: disabled Current occupation: rt handed Cognitive needs: Yes Hearing needs: No Vision needs: No Physical Exam ED Vital Signs: Vital Signs - 24 hr 11/08/22 15:59 Temperature 98.5 F Pulse Rate 90 Respiratory Rate 18 Blood Pressure 125/84 Pulse Oximetry 98 Oxygen Delivery Method Room Air BMI result Body Mass Index 31.9 Const General: cooperative, healthy appearing and no acute distress Orientation/consciousness: patient oriented x3 Limitations: no limitations HENMT Head: Yes normal to inspection and Yes atraumatic Ears: hearing grossly normal bilaterally General nose exam: Normal external nose present Face and sinus: Yes normal facial exam Eyes General: appearance normal, both eyes and all related structures EOM: EOMs intact bilaterally Neck Neck: Yes normal visual inspection and Yes no meningeal signs Resp Effort & Inspection: normal respiratory effort and no respiratory distress Cardio Rate: regular rate Heart sounds: S1 normal heart sound present and S2 normal heart sound present Peripheral pulses: popliteal pulses present Skin Rashes: no rashes Wounds: no wounds Neuro General: patient oriented x3, tone normal and no meningeal signs Gait exam (Neuro): Normal gait present Extrem Other: Left 2nd toe with distal ecchymosis and tenderness. Mild swelling. Faint erythema with healing ecchymosis to volar aspect of foot. No warmth, no crepitus. Neurovascular intact Course Course Course Narrative: RmE: 52 yold male with pmh of DM presents to the ED for right toe pain and some redness on dorsal right foot. labs/Xray -1700--no leukocytosis. Labs otherwise reassuring XR foot RT 2V IMPRESSION: Acute nondisplaced fracture of the second proximal phalanx as described above >> tressa-tape and hard-soled shoe applied Results discussed with patient including worrisome signs and symptoms and strict return precautions, and when to return to the emergency department. They verbalized understanding and feel safe for discharge at this time. Procedures Orthopedic Splinting/Casting Injury #1: Side: right Lower Extremity Injury Location: foot and toe Lower Extremity Immobilizer: post-op shoe and tressa tape Medical Decision Making Medical Decision Making MDM Narrative: 52-year-old male with a past medical history allergic rhinitis, depression, fibromyalgia, HTN, diabetes, HLD presenting to the ED complaining of right 2nd toe swelling, ecchymosis, erythema, and pain s/p hitting on a table 6 days ago. On exam vital signs stable, NAD, nontoxic appearing, physical exam as noted above with healing ecchymosis/faint erythema to right foot/2nd toe. Concern for fracture vs sprain vs possible early cellulitis. Low suspicion for septic joint/arthritis or dislocation Plan: X-rays, labs ordered in triage Please refer to course for remaining clinical decision making, interpretation of labs/imaging results, and discussions with consultants and/or family members. Differential Diagnosis Differential Diagnoses: The differential diagnosis associated with the presentation includes As above Admission/Observation Consideration of admission/observation: Escalation of care including admission/observation considered Lab Data [facility] Lab Attestation statement: I reviewed the patient's lab results. 11/08/22 16:11 11/08/22 16:11 Labs: Lab Results 11/08/22 11/08/22 11/08/22 Range/Units 16:11 16:11 16:11 WBC 7.6 (4.8-10.8) X10*3/uL RBC 5.43 (4.60-5.80) X10*6/uL Hgb 14.2 (14.0-18.0) g/dl Hct 43.9 (42.0-52.0) % MCV 80.8 (80.0-98.0) fL MCH 26.2 L (27.0-33.0) pg MCHC 32.3 (31.0-36.0) g/dl RDW 12.1 (11.0-16.0) % Plt Count 250 (160-400) X10*3/uL MPV 9.8 (9.4-12.4) fL Immature Gran % (Auto) 0.4 (0.0-0.4) % Neut % (Auto) 58.8 (45-73) % Lymph % (Auto) 29.4 (20-40) % [place] % (Auto) 7.5 (2-11) % Eos % (Auto) 3.5 (0-4) % Baso % (Auto) 0.4 (0-2) % Lymph # (Auto) 2.2 (1.2-4.9) X10*3/uL [place] # (Auto) 0.6 (0.1-1.2) X10*3/uL Eos # (Auto) 0.3 (0.0-0.4) X10*3/uL Baso # (Auto) 0.0 (0.0-0.2) X10*3/uL Abs Immat Gran (auto) 0.03 (0.00-0.03) X10*3/uL Absolute Neuts (auto) 4.5 (2.0-8.3) x10*3/uL Absolute Nucleated RBC 0.000 (0.0-0.012) X10*3/uL Nucleated RBC % (auto) 0.0 (0.0-0.2) /100WBC ESR 13 (0-15) MM/HR Sodium 136 (135-145) mmol/L Potassium 4.5 (3.3-5.1) mmol/L Chloride 101 (96-108) mmol/L Carbon Dioxide 26 (22-29) mmol/L Anion Gap 14 (12-20) BUN 12 (9-16) mg/dL Creatinine 1.23 (0.5-1.4) mg/dL Estim Creat Clear Calc 90.6 Estimated GFR > 60 Random Glucose 167 H (60-115) mg/dL Calcium 9.8 D (8.4-10.2) mg/dL Total Bilirubin 0.6 (0.0-1.0) mg/dL AST 33 (5-37) U/L ALT 90 H (0-40) U/L Alkaline Phosphatase 87 (39-117) U/L C-Reactive Protein 0.88 H (< or = 0.50) mg/dL Total Protein 7.3 (6.5-8.0) g/dL Albumin 4.4 (3.5-5.0) g/dL Radiology Impression Discussion of test interpretation with radiology: I have reviewed the radiologist's reading. External Record Review External record reviewed: Inpatient record, Office record, Outpatient record, Prior outpatient labs, Prior outpatient radiology, Primary care record and Outside ED record Tests considered The following testing was considered but not selected: As above Discharge Plan Discharge Clinical Impression: Fracture of proximal phalanx of toe Patient Disposition: Home, Self-Care Instructions: Toe Fracture (ED) Additional Instructions: You have a nondisplaced fracture of her 2nd proximal toe Please body tape as taught in the ED Use hard-soled shoe/supportive shoes at home Follow-up with Orthopedics, call tomorrow to make an appointment in 1 week Take Tylenol and ibuprofen for pain. Keflex as an antibiotic please take as prescribed for possible early infection Ice and elevate If symptoms persist or worsen, pain becomes unbearable, area begins to look more red/inflamed or numb return to the ED Prescriptions: New cephalexin 500 mg capsule 500 mg PO QID 7 Days Qty: 28 0RF No Action fluocinolone acetonide oil 0.01 % drops 5 drp otic (ear) left BID 7 Days Qty: 20 3RF (DME) blood-glucose meter [FreeStyle Lite Meter] Kit See Rx Instructions .Route Qty: 1 0RF Rx Instructions: As directed lisinopril 5 mg tablet 5 mg PO DAILY 90 Days Qty: 90 3RF lancets [FreeStyle Lancets] 28 gauge misc 28 gauge topical BID 30 Days Qty: 100 11RF (DME) blood pressure monitor Kit See Rx Instructions .Route Qty: 1 0RF Rx Instructions: As directed trazodone 150 mg tablet 150 mg PO BEDTIME PRN (Reason: sleep) 90 Days Qty: 90 1RF rosuvastatin 40 mg tablet 40 mg PO DAILY 90 Days Qty: 90 1RF loratadine [Allergy Relief (loratadine)] 10 mg tablet 10 mg PO DAILY 90 Days Qty: 90 0RF pregabalin 75 mg capsule 75 mg PO BID 30 Days Qty: 60 0RF oxycodone 5 mg tablet 5 mg PO TID PRN (Reason: pain) 30 Days Qty: 90 0RF FreeStyle Lite Strips Strip 1 strip miscellaneous BID 30 Days Qty: 100 11RF fluoxetine 20 mg capsule 60 mg PO DAILY hydroxyzine HCl 25 mg tablet 25 mg PO BID vitamin E 200 unit capsule 400 unit PO DAILY (DME) cane Device See Rx Instructions .ROUTE .MEDSUPPLY Qty: 1 Rx Instructions: As directed (DME) cpap 6-16cm h20 0 .Route .MEDSUPPLY Qty: 1 metformin 500 mg tablet 1,000 mg PO BID 90 Days Qty: 360 3RF guaifenesin [Mucinex] 600 mg tablet extended release 12hr 600 mg PO Q12H PRN (Reason: congestion) 10 Days Qty: 20 0RF cholecalciferol (vitamin D3) 25 mcg (1,000 unit) capsule 25 mcg PO DAILY 90 Days Qty: 90 1RF polyethylene glycol 3350 17 gram/dose powder 1 g PO BID [place] [facility] [place] [facility] [place]Provider Group] Interventions: ED Discharge Assessment Last Done: 11/08/22 17:33 Discharge Date/Time: 11/08/22 17:33
[2022-11-08 16:18] LABS: MANUAL DIFF FLAG NO
--- NOTE | 2022-11-08 16:20 | PC.NURSE ---
labs collected- pending result, XR taken at bedside, call jovel within reach
[2022-11-08 16:21] LABS: Basophils Percent Auto 0.4 % (0-2); Eosinophils Absolute Auto 0.3 X10*3/uL (0.0-0.4); Eosinophils Percent Auto 3.5 % (0-4); Hematocrit 43.9 % (42.0-52.0); Hemoglobin 14.2 g/dl (14.0-18.0); Imm Gran Abs Auto 0.03 X10*3/uL (0.00-0.03); Imm Gran Pct Auto 0.4 % (0.0-0.4); Lymphocytes Absolute Auto 2.2 X10*3/uL (1.2-4.9); Lymphocytes Percent Auto 29.4 % (20-40); Mean Corpuscular HGB Conc 32.3 g/dl (31.0-36.0); Mean Corpuscular Hemoglobin 26.2 pg (27.0-33.0); Mean Corpuscular Volume 80.8 fL (80.0-98.0); Mean Platelet Volume 9.8 fL (9.4-12.4); Monocytes Absolute Auto 0.6 X10*3/uL (0.1-1.2); Monocytes Percent Auto 7.5 % (2-11); Neutrophils Absolute Auto 4.5 x10*3/uL (2.0-8.3); Neutrophils Percent Auto 58.8 % (45-73); Platelet Count 250 X10*3/uL (160-400); Red Blood Count 5.43 X10*6/uL (4.60-5.80); Red Cell Distribution Width 12.1 % (11.0-16.0); White Blood Count 7.6 X10*3/uL (4.8-10.8)
[2022-11-08 16:43] LABS: Alanine Aminotransferase 90 U/L (0-40); Albumin Level 4.4 g/dL (3.5-5.0); Alkaline Phosphatase 87 U/L (39-117); Anion Gap 14 (12-20); Aspartate Amino Transferase 33 U/L (5-37); Bilirubin Total 0.6 mg/dL (0.0-1.0); Blood Urea Nitrogen 12 mg/dL (9-16); C Reactive Protein 0.88 mg/dL (< or = 0.50); Calcium 9.8 mg/dL (8.4-10.2); Carbon Dioxide 26 mmol/L (22-29); Chloride 101 mmol/L (96-108); Creatinine Clr Calc Pharmacy 90.6; Estimated Glomerular Filt Rate > 60; Glucose Random 167 mg/dL (60-115); Potassium 4.5 mmol/L (3.3-5.1); Sodium 136 mmol/L (135-145); Total Protein 7.3 g/dL (6.5-8.0)
[2022-11-08 17:47] LABS: Erythrocyte Sedimentation Rate 13 MM/HR (0-15)
== END 2022-11-08 17:33 | disposition home or self-care (01) ==
PROVIDERS: Physician Assistant; Emergency Provider Emergency Medicine; PCP Internal Medicine
DX: S92.411A Displaced fracture of proximal phalanx of right great toe, initial encounter for closed fracture (principal); M79.671 Pain in right foot; Y29.XXXA Contact with blunt object, undetermined intent, initial encounter; Y93.9 Activity, unspecified; Y92.9 Unspecified place or not applicable; Y99.9 Unspecified external cause status; Z79.899 Other long term (current) drug therapy
CPT/HCPCS: 29515; 36415; 73620; 80053; 85025; 85652; 86140; 99283

== ENCOUNTER 2022-12-03 10:27 | Outpatient (REF) | payer MEDICARE, MEDICAID, SELFPAY ==
[2022-12-03 11:32] LABS: Alanine Aminotransferase 68 U/L (0-40); Albumin Level 4.3 g/dL (3.5-5.0); Alkaline Phosphatase 83 U/L (39-117); Anion Gap 12 (12-20); Aspartate Amino Transferase 30 U/L (5-37); Bilirubin Total 0.5 mg/dL (0.0-1.0); Blood Urea Nitrogen 11 mg/dL (9-16); Carbon Dioxide 28 mmol/L (22-29); Chloride 102 mmol/L (96-108); Cholesterol 208 mg/dL; Estimated Glomerular Filt Rate > 60; Glucose Fasting 111 mg/dL (60-99); HDL Cholesterol 32 mg/dL; LDL Cholesterol Calculated 146 mg/dl; Potassium 4.5 mmol/L (3.3-5.1); Sodium 137 mmol/L (135-145); Total Protein 7.8 g/dL (6.5-8.0); Triglycerides 154 mg/dL
[2022-12-03 11:43] LABS: Vitamin D 25-OH Total 34.3 ng/mL (>30)
[2022-12-03 12:48] LABS: Creatinine Urine 216.79 mg/dL; Microalbum/Creatinine Ratio Ur 3.6 ug/mg cr
== END 2022-12-03 10:28 | disposition home or self-care (01) ==
LOC: HO.LAB 10:27
PROVIDERS: PCP Internal Medicine; Visit Provider Internal Medicine
DX: E11.9 Type 2 diabetes mellitus without complications (principal); E55.9 Vitamin D deficiency, unspecified; E78.5 Hyperlipidemia, unspecified
CPT/HCPCS: 36415; 80053; 80061; 82043; 82306

== ENCOUNTER 2023-03-17 10:07 | Outpatient (REF) | payer MEDICARE, MEDICAID, SELFPAY ==
[2023-03-17 11:46] LABS: Alanine Aminotransferase 66 U/L (0-40); Albumin Level 4.2 g/dL (3.5-5.0); Alkaline Phosphatase 78 U/L (39-117); Anion Gap 15 (12-20); Aspartate Amino Transferase 35 U/L (5-37); Bilirubin Total 0.5 mg/dL (0.0-1.0); Blood Urea Nitrogen 11 mg/dL (9-16); Calcium 9.8 mg/dL (8.4-10.2); Carbon Dioxide 25 mmol/L (22-29); Chloride 103 mmol/L (96-108); Cholesterol 230 mg/dL (<200); Estimated Glomerular Filt Rate > 60; Glucose Fasting 117 mg/dL (60-99); HDL Cholesterol 35 mg/dL (>40); LDL Cholesterol Calculated 163 mg/dL (<100); Potassium 4.3 mmol/L (3.3-5.1); Sodium 139 mmol/L (135-145); Total Protein 7.5 g/dL (6.5-8.0); Triglycerides 160 mg/dL (<150)
[2023-03-17 12:02] LABS: Vitamin D 25-OH Total 42.1 ng/mL (>30)
== END 2023-03-17 10:08 | disposition home or self-care (01) ==
LOC: HO.LAB 10:07
PROVIDERS: PCP Internal Medicine; Visit Provider Internal Medicine
DX: Z00.00 Encounter for general adult medical examination without abnormal findings (principal); E78.5 Hyperlipidemia, unspecified; E11.9 Type 2 diabetes mellitus without complications; E55.9 Vitamin D deficiency, unspecified
CPT/HCPCS: 36415; 80053; 80061; 82306; 82570

== ENCOUNTER 2023-03-22 13:14 | Outpatient (AMB) | payer MEDICARE, MEDICAID, SELFPAY ==
[2023-03-22 13:28] VITALS: BP 120/86; PULSE 84; O2SAT 96; BMI 32.4
--- NOTE | 2023-03-22 13:28 | A.OFFPC_ITS ---
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 Required: No Accompanied by: Self / Same As Patient Allergies aspirin [ASA] Allergy (Severe, Verified 03/22/23 13:51) ANAPHYLAXIS gabapentin Allergy (Intermediate, Verified 03/22/23 13:51) sore thoat orphenadrine Allergy (Intermediate, Verified 03/22/23 13:51) restless legs ranitidine Allergy (Intermediate, Verified 03/22/23 13:51) restless leg tramadol Allergy (Intermediate, Verified 03/22/23 13:51) dry mouth, inadequate response Medication List - Last Reconciled 03/22/23 by Adelina Grant MD blood pressure monitor As directed blood sugar diagnostic (FreeStyle Lite Strips) 1 strip miscellaneous BID 30 days blood-glucose meter (FreeStyle Lite Meter kit) As directed cane As directed cetirizine 10 mg PO DAILY cholecalciferol (vitamin D3) 25 mcg PO DAILY 90 days [cpap 6-16cm h20 ] dulaglutide (Trulicity) 0.75 mg (0.5 mL) subcut QWEEK 90 days fluocinolone acetonide oil 0.01% 5 drps otic (ear) left BID 7 days fluoxetine 60 mg PO DAILY hydroxyzine HCl 25 mg PO BID lancets (FreeStyle Lancets) 28 gauge topical BID 30 days lisinopril 5 mg PO DAILY 90 days metformin 1,000 mg (2 x 500 mg) PO BID 90 days oxycodone 5 mg PO TID PRN 30 days polyethylene glycol 3350 1 g PO BID pregabalin 100 mg PO BID 30 days rosuvastatin 40 mg PO DAILY 90 days trazodone 150 mg PO BEDTIME PRN 90 days vitamin E 400 units PO DAILY Tobacco use date assessed: 07/01/22 Dental Screening Dental Screen Date: 03/22/23 Did you have a dental visit in the last 12 months?: No Did you have a dental problem in the last 6 months where you did not have access to dental care?: No Was dental information given to patient?: Patient has dentist HPI HPI Comments History of Present Illness Details This is a 52-year-old male with diabetes mellitus type 2, hypertension, pure hypercholesterolemia and mild depression that comes today complaining of chronic lumbar pain that has been aggravated and radiating to the right leg with no leg numbness. No fever, bowel or bladder incontinence. On narcotics as needed for pain. Walks with a cane for gait stability. I will refer him again to pain management. A1c within goal. Blood pressure stable. LDL not on goal but he admits not been compliant with statins. Depression also stable with SSRIs. [facility] Medical History Allergic rhinitis Hypovitaminosis D Mild depression Fibromyalgia Essential hypertension Spinal cord stimulator status Right knee pain Left knee pain Right shoulder pain Radiculopathy, lumbar region Cervical postlaminectomy syndrome Impingement syndrome of right shoulder Radiculopathy, cervical OSKAR on CPAP Polyarthralgia Pure hypercholesterolemia Insomnia Depression Diabetes mellitus Elevated liver enzymes Knee pain Bilateral carpal tunnel syndrome Low back pain Neck pain Surgical History H/O rotator cuff surgery H/O shoulder surgery History of cervical spinal surgery Family History Father Diabetes Hypertension Mother Diabetes Hypertension Maternal Grandmother Cancer Maternal Grandfather Cancer Paternal Uncle Stroke Brother No problems noted. Sister No problems noted. Sister No problems noted. Son No problems noted. Son No problems noted. Daughter No problems noted. Social History Housing: Apartment Alcohol intake: never Patient Tobacco Use Status: Former Tobacco user Tobacco use type: Cigarette e-Cigarette/Vaping Use: Never Used Second Hand Smoke Exposure: No service: No Current occupational status: disabled Current occupation: rt handed Cognitive needs: Yes Hearing needs: No Vision needs: No Questionnaire Thrive Questionnaire Date Thrive assessed: 07/01/22 DAVID-7 AMB Questionnaire DAVID-7 Date DAVID - 7 assessed: 07/01/22 Source: Developed by Drs. Walt Arnold, Latanya Miller, Juan Carvalho and colleagues, with an educational jenna from [employer]. Review of Systems Const All systems reviewed & are unremarkable except as noted in HPI and below Eyes Reports no additional complaints, Denies change in vision and Denies other visual disturbances Card Denies chest pain at rest, Denies chest pain with activity, Denies edema, Denies irregular heart rhythm, Denies claudication, Denies dyspnea, Denies dyspnea on exertion, Denies orthopnea, Denies paroxysmal nocturnal dyspnea and Denies slow heart rate Resp Denies cough, Denies dyspnea and Denies dyspnea on exertion GI Denies abdominal pain, Denies change in bowel habits, Denies excessive flatus, Denies nausea and Denies vomiting Denies urinary hesitancy, Denies urinary incontinence and Denies urinary urgency Musc Denies abnormal gait, Denies atrophy, Denies deformity and Denies limited range of motion Skin/Breast Denies bleeding lesions, Denies changing lesions and Denies rash Neuro Denies abnormal gait and Denies lack of coordination Physical exam (Primary Care) Vital Signs: Last Vital Signs Pulse 84 03/22/23 13:28 BP 120/86 03/22/23 13:28 Pulse Ox 96 03/22/23 13:28 Oxygen Delivery Method Room Air 03/22/23 13:28 BMI result Body Mass Index 32.4 Tobacco/Smoking Status: Tobacco use Status Tobacco use date assessed 07/01/22 03/22/23 13:30 Patient Tobacco Use Status Former Tobacco user 03/22/23 13:30 Tobacco use type Cigarette 03/22/23 13:30 e-Cigarette/Vaping Use Never Used 03/22/23 13:30 Thrive Assessment: Date of Thrive Assessment Date Thrive assessed 07/01/22 03/22/23 13:30 Const Limitations: ambulation with cane HENMT Head: Yes normal to inspection, Yes normocephalic and Yes atraumatic Ears: external ears normal General nose exam: Normal external nose present and No nasal discharge present Face and sinus: Yes sinuses nontender Mouth: lip normal Eyes General: appearance normal, both eyes and all related structures Eyelids: Yes eyelids normal Conjunctivae: conjunctivae normal Neck Neck: Yes normal visual inspection and Yes supple Resp Effort & Inspection: normal respiratory effort Auscultation: clear to auscultation bilaterally Cardio Jugular venous distension: no JVD Rate: regular rate Rhythm: regular rhythm Heart sounds: S1 normal heart sound present and S2 normal heart sound present Extrem General: Yes full ROM Office Procedures Flu Questionnaire Does the patient have a severe egg allergy?: No Results AMB Hemoglobin A1c AMB Hemoglobin A1c 6.5 % Last Edit by GLORIA Thurston on 03/22/23 13:3 9 Immunizations flu vacc [id number] 6mos up(PF) 60 mcg(15 mcgx4)/0.5 mL IM syringe Performing Provider: Adelina Grant MD [place] [facility] [place] [facility] Documented (not given) by: GLORIA Thurston on 03/22/23 13:37 Reason Not Given: Patient Refused Results Reviewed Results Reviewed: Laboratory Last Values Hgb A1c (Clinic) 6.5 % (4.0-6.0) H 03/22/23 13:28 Assessment and Plan Assessment & Plan (1) Mild depression: Code(s): F32.0 - Major depressive disorder, single episode, mild Plan: Continue SSRIs. (2) Essential hypertension: Code(s): I10 - Essential (primary) hypertension Plan: Continue lisinopril. Blood pressure goal is equal or less than 130/80. 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 A1c goal is equal or less than 7% (4) Pure hypercholesterolemia: Code(s): E78.00 - Pure hypercholesterolemia, unspecified Plan: Be compliant with statins. LDL goal is less than 70. (5) Radiculopathy, lumbar region: Code(s): M54.16 - Radiculopathy, lumbar region Plan: Continue oxycodone as needed. Referred to pain management Orders: Orders AMB Hemoglobin A1c Today E11.9 - Type 2 diabetes mellitus without complications Lipid Panel 4 Months E78.5 - Hyperlipidemia, unspecified Influenza [id number] Immunization Today Z23 - Encounter for immunization Microalbumin, Random (w Creat) 4 Months E11.9 - Type 2 diabetes mellitus without complications Comprehensive [place]. Panel Fast 4 Months E11.9 - Type 2 diabetes mellitus without complications Referrals Pain Management Referral M54.16 - Radiculopathy, lumbar region Coding Level of Care Code Est Pt Level 4 (13862) Diagnoses Mild depression F32.0 Essential hypertension I10 Type 2 diabetes mellitus without complication, without long-term current use of insulin E11.9 Diabetes mellitus type: type 2 Diabetes mellitus correction insulin use: without marine oil terminal superintendent use Diabetes mellitus complication status: without complication Pure hypercholesterolemia E78.00 Radiculopathy, lumbar region M54.16 Time Spent (min) 23
== END 2023-03-22 13:56 | disposition home or self-care (01) ==
PROVIDERS: PCP Internal Medicine; Visit Provider Internal Medicine
DX: F32.0 Major depressive disorder, single episode, mild (principal); E11.9 Type 2 diabetes mellitus without complications; I10 Essential (primary) hypertension; E78.00 Pure hypercholesterolemia, unspecified; M54.16 Radiculopathy, lumbar region
CPT/HCPCS: 83036; 99214

== ENCOUNTER 2023-03-30 07:44 | Outpatient (REF) | payer MEDICARE, MEDICAID, SELFPAY ==
--- NOTE | ~2023-03-30 | US_ITS ---
EXAMINATION: US COMPLETE ABDOMEN WITH LIVER ELASTOGRAPHY CLINICAL INFORMATION: Hepatic fibrosis and fatty liver. COMPARISON: None available. TECHNIQUE: Real-time imaging of the abdominal viscera. Noninvasive ultrasound liver fibrosis assessment is performed using Varinder ElastPQ point quantification shear wave elastography (2D-SWE) with a C5-2 MHz transducer. Multiple elastography samples are obtained. FINDINGS: PANCREAS: Normal. The visualized pancreatic head and body are normal in appearance. The remainder of the pancreas is obscured from visualization by the overlying bowel gas. ABDOMINAL AORTA: The proximal, middle, and distal aortic segments are normal in caliber. INFERIOR VENA CAVA: Visualized portions are normal. LIVER: The liver demonstrates normal size, contour and increased echogenicity. No focal lesion or intrahepatic biliary duct dilatation. The right lobe measures 1.37 cm in length. The left lobe measures 0.12 cm in length. Portal flow is towards the liver (hepatopetal). Shear wave liver elastography median stiffness is 1.52 m/s (reference: normal median stiffness is 1.3 m/s or less). IQR/median stiffness to assess sampling precision is 10.2 (reference: good quality data set is IQR/median stiffness of 0.15 or less). GALLBLADDER: Normal. The gallbladder is physiologically distended without evidence of stones, sludge, polyps, wall thickening or pericholecystic fluid. COMMON BILE DUCT: Normal in caliber measuring 0.3 cm in diameter. RIGHT KIDNEY: At the upper pole, a 1.4 cm benign, simple cyst is seen, which requires no imaging follow-up.. No hydronephrosis. No renal calculi or focal parenchymal lesions. The kidney measures 11.2 cm in maximum dimension. LEFT KIDNEY: Normal. No hydronephrosis. No renal calculi or focal parenchymal lesions. The kidney measures 11.4 cm in maximum dimension. SPLEEN: Normal. The spleen measures 12.1 cm in maximum dimension. FREE FLUID: None. US/US abdomen comp w elastography IMPRESSION: 1. There is generalized increase in hepatic echotexture, consistent with fatty infiltration or hepatocellular disease. Please correlate clinically. No focal hepatic mass or intrahepatic biliary dilatation is seen. 2. Liver elastography: In the absence of other known clinical signs, measurements rule out compensated advanced chronic liver disease. If there are known clinical signs, further testing may be needed for confirmation. REFERENCE: Society of Radiologists in Ultrasound Liver Stiffness Thresholds (2020): LIVER STIFFNESS THRESHOLDS: *Liver Stiffness equal or less than 1.3 m/s: High probability of being normal. *Liver Stiffness less than 1.7 m/s: In the absence of other known clinical signs, rules out compensated advanced chronic liver disease. *Liver Stiffness 1.7-2.1 m/s: Suggestive of compensated advanced chronic liver disease but need further test for confirmation. *Liver Stiffness over 2.1 m/s: Rules in compensated advanced chronic liver disease. *Liver Stiffness over 2.4 m/s: Suggestive of clinically significant portal hypertension. QUALITY OF DATA SET: *IQR/Median value equal or less than 0.15 implies a quality data set. *IQR/Median value over 0.15 implies a poor quality data set. SIGNIFICANT CHANGE FROM PRIOR EXAM: Significant change if liver stiffness measurement is 10% or greater from prior exam. OTHER CONSIDERATIONS: The stage of liver fibrosis may be overestimated in the setting of acute hepatitis, liver inflammation, elevated liver function tests, hepatic vascular congestion, obstructive cholestasis, non-fasting state, and infiltrative diseases such as amyloidosis and lymphoma. In some patients with NAFLD, the liver stiffness thresholds for compensated advanced chronic liver disease may be lower. In causes other than viral hepatitis and NAFLD, liver stiffness thresholds are not well established.
== END 2023-03-30 07:45 | disposition home or self-care (01) ==
LOC: HO.US 07:44
PROVIDERS: PCP Internal Medicine; Visit Provider Internal Medicine
DX: K74.00 Hepatic fibrosis, unspecified (principal); K76.0 Fatty (change of) liver, not elsewhere classified
CPT/HCPCS: 76705; 76981

== ENCOUNTER 2023-03-31 14:17 | Outpatient (AMB) | payer MEDICARE, MEDICAID, SELFPAY ==
[2023-03-31 14:37] VITALS: BMI 32.4
--- NOTE | 2023-03-31 14:37 | MHC.OFFVIS ---
Intake Vital Signs 03/31/23 14:37 Height 6 ft Weight 239 lb BMI 32.4 Intake Visit Reasons: OV-Rt MF&RF Trigger - Discuss Surgery Intake Note: Ben 52 yr old male presents today for his follow up visit for his right middle and ring trigger finger. States he is ready to discuss surgical intervention due to trying and failing trigger injection. States his A1C is currently a 6.5 as of 03/22/23. Allergies aspirin [ASA] Allergy (Severe, Verified 03/31/23 14:40) ANAPHYLAXIS gabapentin Allergy (Intermediate, Verified 03/31/23 14:40) sore thoat orphenadrine Allergy (Intermediate, Verified 03/31/23 14:40) restless legs ranitidine Allergy (Intermediate, Verified 03/31/23 14:40) restless leg tramadol Allergy (Intermediate, Verified 03/31/23 14:40) dry mouth, inadequate response HPI OV-Rt MF&RF Trigger - Discuss Surgery HPI Details Ben is a 52 year old right hand dominant man who returns to discuss treatment for his right middle & ring trigger fingers. He still has locking and catching of both the right middle and right index fingers. He also has some pain and swelling in his right middle finger PIP joint. Surgery was discussed in the past, but his HgA1c was too high, he returns now saying his HgA1c is currently 6.5% and he would like to proceed with surgery. He has Fibromyalgia and takes 5mg Oxycodone TID for cervical pain [facility] Medical History Allergic rhinitis Hypovitaminosis D Mild depression Fibromyalgia Essential hypertension Spinal cord stimulator status Right knee pain Left knee pain Right shoulder pain Radiculopathy, lumbar region Cervical postlaminectomy syndrome Impingement syndrome of right shoulder Radiculopathy, cervical OSKAR on CPAP Polyarthralgia Pure hypercholesterolemia Insomnia Depression Diabetes mellitus Elevated liver enzymes Knee pain Bilateral carpal tunnel syndrome Low back pain Neck pain Surgical History H/O rotator cuff surgery H/O shoulder surgery History of cervical spinal surgery Family History Father Diabetes Hypertension Mother Diabetes Hypertension Maternal Grandmother Cancer Maternal Grandfather Cancer Paternal Uncle Stroke Brother No problems noted. Sister No problems noted. Sister No problems noted. Son No problems noted. Son No problems noted. Daughter No problems noted. Social History Housing: Apartment Alcohol intake: never Patient Tobacco Use Status: Former Tobacco user Tobacco use type: Cigarette e-Cigarette/Vaping Use: Never Used Second Hand Smoke Exposure: No service: No Current occupational status: disabled Current occupation: rt handed Cognitive needs: Yes Hearing needs: No Vision needs: No Review of Systems Const All systems reviewed & are unremarkable except as noted in HPI and below Physical Exam Vital Signs: BMI result Body Mass Index 32.4 Const General: cooperative, healthy appearing and no acute distress Orientation/consciousness: oriented to person and oriented to place HEENT Head: Yes normocephalic and Yes atraumatic Eyes EOM: EOMs intact bilaterally Resp Effort & Inspection: normal respiratory effort and able to speak in complete sentences Cardio Jugular venous distension: no JVD Skin General skin exam: turgor normal Rashes: no rashes Neuro General: oriented to person and oriented to place Extrem Other: Evaluation of Right Upper Extremity: The patient is alert, oriented, and in no acute distress Neuro: Median, Ulnar, Radial nerves motor and sensory intact and sensation is normal to the tips of all digits Vascular: Cap refill brisk ROM: He can bring his fingers close to a fist and back into extension Visible and palpable locking and catching of the middle & index fingers Tender over the a1 tex of the middle & index fingers Psych Appearance: grossly normal Affect: normal affect Attitude: cooperative Assessment & Plan Assessment & Plan (1) Trigger finger, right index finger: Code(s): M65.321 - Trigger finger, right index finger (2) Trigger finger, right middle finger: Code(s): M65.331 - Trigger finger, right middle finger Plan Assessment and plan: 1. Right middle finger trigger finger, S/P injection Date of injection: 07/20/22 2. Right index finger trigger finger I educated him about this condition I discussed operative and non-operative treatment options The patient would like to proceed with surgery The risks and benefits of operative treatment were discussed with the patient and the patient wishes to proceed with surgery. These risks include, but are not limited to risk of damage to blood vessels, nerves, tendons, infection, recurrence, incomplete relief of preoperative symptoms, persistent pain, possible need for further surgery and the risks associated with regional blocks and anesthesia. The plan is to take the patient to the operating room sometime in the next few weeks for the following procedures: 1. Right index finger trigger release, under local 2. Right middle finger trigger release, under local All of the preoperative paperwork including the consent was filled out today. All the patient's questions were answered. The patient understands that they will be contacted by our analyst market intelligence soon to schedule this procedure He denies blood thinners, asthma, heart, lung, kidney issues He is a Diabetic, his most recent HgA1c was 6.5% on 03/22/23 He has Fibromyalgia and takes 5mg Oxycodone TID for cervical pain Scribed for Sallie Pantoja MD by Andrey Newby, medical physicist, on 03/31/23 at 3:00 PM, EST. Coding Level of Care Code Est Pt Level 4 (36900) Diagnoses Trigger finger, right index finger M65.321 Trigger finger, right middle finger M65.331
== END 2023-03-31 15:09 | disposition home or self-care (01) ==
PROVIDERS: PCP Internal Medicine; Visit Provider Orthopaedic Surgery
DX: M65.321 Trigger finger, right index finger (principal); M65.331 Trigger finger, right middle finger
CPT/HCPCS: 99214

== ENCOUNTER → 2023-03-31 14:17 | Outpatient (BNVA) | payer MEDICARE, MEDICAID, SELFPAY | PROVIDERS: PCP Internal Medicine; Visit Provider Orthopaedic Surgery | DX: M65.321 Trigger finger, right index finger (principal); M65.331 Trigger finger, right middle finger | CPT/HCPCS: 99212 ==

== ENCOUNTER 2023-04-05 13:03 | Outpatient (AMB) | payer MEDICARE, MEDICAID, SELFPAY ==
--- NOTE | 2023-04-05 13:05 | MHC.OFFVIS ---
Intake Vital Signs 04/05/23 13:29 Height 6 ft Weight 239 lb BMI 32.4 BP 116/76 Blood Pressure Location Lt brachial Position Sitting Respiration 18 Pulse 91 Pulse Source Pulse Oximeter Pulse Oximetry (%) 99 Oxygen Delivery Method Room Air Intake Visit Reasons: Radiculopathy, Lumbar Region/confirmed Allergies aspirin [ASA] Allergy (Severe, Verified 04/05/23 13:29) ANAPHYLAXIS gabapentin Allergy (Intermediate, Verified 04/05/23 13:29) sore thoat orphenadrine Allergy (Intermediate, Verified 04/05/23 13:29) restless legs ranitidine Allergy (Intermediate, Verified 04/05/23 13:29) restless leg tramadol Allergy (Intermediate, Verified 04/05/23 13:29) dry mouth, inadequate response HPI HPI Comments History of Present Illness Details Ben is in my office again with complains on pain in the bilateral shoulders cervical spine and lumbar spine. For the treatment of pain in the cervical spine he received from [place] spinal cord stimulator [employer]. the year of implant was 2019. He reports that he lost the wire to his charging device and was not able to charge his spinal cord stimulator for significant period of time. Back in October of 2022 he started to complain on pain exacerbation in the cervical spine and he was sent for the x-ray. On the cervical x-ray there was properly posteriorly position stimulating electrodes which may be slightly shifted 5 mm down from the previous position in the top C3 bottom C2 intervertebral interval.I recommended him to contact Charly from [employer] and request device interrogation and program changes to help his pain better. It seem to me that he is not charging his machine diligently and properly and that is why his neck is so painful. He is also complaining pain in lumbar spine. He was telling me that he has some images of the lumbar spine available in our Radiology Department however this is not true. Most likely although he has MRIs are in the [facility] if they do exist. On physical exam attention was attracted today on severe pain exacerbation with attempt to flex torso forward and severe pain with prolonged sitting. he also reports pain radiating into right lower extremity to the level of the mid cough but not below that level. Spondylosis of lumbar spine with facet degeneration is could be suspected however the vertebra genic pain cannot be excluded. I need to see the MRIs of the patient he in 2 weeks promised me to bring the MRI. I requested the report and the disc. Prior: He is very pleasant 50 years old gentleman who is suffering from postlaminectomy syndrome cervical spine spondylosis of cervical spine and generalized arthralgia appear for the treatment of his condition he was implanted with spinal cord stimulator at the end of 2019. He original reported very good pain relieve with device working. However now he is starting to complain that the the device stopped working for him. He admits that he has charging the machine every day. It is a [employer] device. He also complains on pain in the projection of the incision in the lumbar spine as well as the incision where batteries implanted in his left loin area. He reports significant discomfort from those incisions however the incisions are very well-healed. There is no redness no swelling and no inflammation at all in the sites of the injection. Unlikely it is allergic reaction. I told him that the minimal body reaction to the batteries possible and he might feel discomfort because of the but otherwise side not see any reason why this side of the battery is bringing him such an aggravation [facility] Medical History Allergic rhinitis Hypovitaminosis D Mild depression Fibromyalgia Essential hypertension Spinal cord stimulator status Right knee pain Left knee pain Right shoulder pain Radiculopathy, lumbar region Cervical postlaminectomy syndrome Impingement syndrome of right shoulder Radiculopathy, cervical OSKAR on CPAP Polyarthralgia Pure hypercholesterolemia Insomnia Depression Diabetes mellitus Elevated liver enzymes Knee pain Bilateral carpal tunnel syndrome Low back pain Neck pain Surgical History H/O rotator cuff surgery H/O shoulder surgery History of cervical spinal surgery Family History Father Diabetes Hypertension Mother Diabetes Hypertension Maternal Grandmother Cancer Maternal Grandfather Cancer Paternal Uncle Stroke Brother No problems noted. Sister No problems noted. Sister No problems noted. Son No problems noted. Son No problems noted. Daughter No problems noted. Social History Housing: Apartment Alcohol intake: never Patient Tobacco Use Status: Former Tobacco user Tobacco use type: Cigarette e-Cigarette/Vaping Use: Never Used Second Hand Smoke Exposure: No service: No Current occupational status: disabled Current occupation: rt handed Cognitive needs: Yes Hearing needs: No Vision needs: No Review of Systems Const All systems reviewed & are unremarkable except as noted in HPI and below ENT Reports Normal hearing present Neuro Reports Normal hearing present and Denies Sensory deficit (Neuro) Physical Exam Eyes Pupils: Equal, round and reactive pupils present EOM: EOMs intact bilaterally Chest Chest palpation & inspection: normal inspection of the chest Resp Effort & Inspection: normal respiratory effort, able to speak in complete sentences, normal respiratory pattern, no audible wheezes and no cough Cardio Jugular venous distension: no JVD Back/Spine/Pelvis Other: Cervical Spine/Neck: C SPINE EXAM: well-healed anterior cervical scar. RANGE OF MOTION OF NECK: limited rotation, 45 to right, 60 to left, limited flexion and extension. SHOULDER JOINT: normal range of motion. REFLEXES: DTRs in the arms are 2+ throughout and equal bilaterally. SENSATIONS: paresthesias to bilateral upper extremitites, R>L. MOTOR STRENGTH: no abnormal movements are seen in the upper extremities, bi/tri/script developer strength diminished on right 4/5. VERTEBRAL SPINE TENDERNESS: absent. PARASPINAL MUSCLE SPASM: absent bilaterally. TRAPEZIUS TENDERNESS: present bilaterally. SPURLING TEST Postive bilat. Lumbar Spine/Lower back/SIJ: SACROILIAC JOINT No tenderness to palpation. INSPECTION: normal curvature of spine. RANGE OF MOTION decreased flexion, extention, IROT, EROT secondary to pain. PALPATION: mild lumbar paraspinal tenderness. STRAIGHT LEG RAISING TEST: positive at 30 degrees on right, pos at 45 degress on left. MOTOR SYSTEM: 5/5 bilateral lower extremities. SENSORY EXAM: abnormal to light touch in right L4-5 distribution. REFLEXES: symmetrical 2+ with absent ankle jerks. GAIT: able to weight bear but painful Neuro Cranial nerves: Yes Equal, round and reactive pupils present and Yes Normal hearing present Sensory Exam: No Sensory deficit (Neuro) Psych Speech and movement: Normal speech and movement present Affect: normal affect Attitude: cooperative Assessment & Plan Assessment & Plan (1) Cervical postlaminectomy syndrome: Code(s): M96.1 - Postlaminectomy syndrome, not elsewhere classified (2) Radiculopathy, cervical: Code(s): M54.12 - Radiculopathy, cervical region (3) Impingement syndrome of right shoulder: Code(s): M75.41 - Impingement syndrome of right shoulder (4) Radiculopathy, lumbar region: Code(s): M54.16 - Radiculopathy, lumbar region (5) Vertebrogenic low back pain: Code(s): M54.51 - Vertebrogenic low back pain Plan On the x-ray the position of the electrodes slightly shifted down but seem to be in nevertheless appropriate to help his pain in the cervical spine. I thing that he was not charging the battery for quite some time he will contact Elie and adjust the work of his device. I also suspect that this patient might have spondylosis of lumbar spine, disc degeneration lumbar and vertebra genic pain lumbar. I need to see an MRI to support or deny these allegations. I will schedule appointment with this patient in 2 weeks and I will examine the MRI him well bring to my attention at that time. Coding Level of Care Code Est Pt Level 3 (54908) Diagnoses Cervical postlaminectomy syndrome M96.1 Radiculopathy, cervical M54.12 Impingement syndrome of right shoulder M75.41 Radiculopathy, lumbar region M54.16 Vertebrogenic low back pain M54.51
[2023-04-05 13:29] VITALS: BP 116/76; PULSE 91; RESP 18; O2SAT 99; BMI 32.4
== END 2023-04-05 13:28 | disposition home or self-care (01) ==
PROVIDERS: PCP Internal Medicine; Visit Provider Anesthesiology
DX: M96.1 Postlaminectomy syndrome, not elsewhere classified (principal); M54.12 Radiculopathy, cervical region; M75.41 Impingement syndrome of right shoulder; M54.16 Radiculopathy, lumbar region; M54.51 Vertebrogenic low back pain
CPT/HCPCS: 99213

== ENCOUNTER → 2023-04-05 13:03 | Outpatient (BNVA) | payer MEDICARE, MEDICAID, SELFPAY | PROVIDERS: PCP Internal Medicine; Visit Provider Anesthesiology | DX: M96.1 Postlaminectomy syndrome, not elsewhere classified (principal); M54.12 Radiculopathy, cervical region; M75.41 Impingement syndrome of right shoulder; M54.16 Radiculopathy, lumbar region; M54.51 Vertebrogenic low back pain | CPT/HCPCS: 99212 ==

== ENCOUNTER 2023-05-17 11:55 | Outpatient (REF) | payer MEDICARE, MEDICAID, SELFPAY ==
[2023-05-17 13:19] LABS: MANUAL DIFF FLAG NO
[2023-05-17 13:43] LABS: Basophils Percent Auto 0.4 % (0-2); Eosinophils Absolute Auto 0.2 X10*3/uL (0.0-0.4); Eosinophils Percent Auto 2.3 % (0-4); Hematocrit 44.5 % (42.0-52.0); Hemoglobin 14.5 g/dl (14.0-18.0); Imm Gran Abs Auto 0.03 X10*3/uL (0.00-0.03); Imm Gran Pct Auto 0.4 % (0.0-0.4); Lymphocytes Absolute Auto 2.1 X10*3/uL (1.2-4.9); Lymphocytes Percent Auto 25.1 % (20-40); Mean Corpuscular HGB Conc 32.6 g/dl (31.0-36.0); Mean Corpuscular Hemoglobin 26.5 pg (27.0-33.0); Mean Corpuscular Volume 81.4 fL (80.0-98.0); Mean Platelet Volume 10.2 fL (9.4-12.4); Monocytes Absolute Auto 0.6 X10*3/uL (0.1-1.2); Monocytes Percent Auto 7.1 % (2-11); Neutrophils Absolute Auto 5.3 x10*3/uL (2.0-8.3); Neutrophils Percent Auto 64.7 % (45-73); Platelet Count 240 X10*3/uL (160-400); Red Blood Count 5.47 X10*6/uL (4.60-5.80); Red Cell Distribution Width 12.1 % (11.0-16.0); White Blood Count 8.2 X10*3/uL (4.8-10.8)
[2023-05-17 13:45] LABS: INTERNATIONAL NORM RATIO 0.9 (0.9-1.1); Prothrombin Time 11.5 SEC (11.1-13.3)
[2023-05-17 14:14] LABS: Alanine Aminotransferase 58 U/L (0-40); Albumin Level 4.4 g/dL (3.5-5.0); Alkaline Phosphatase 81 U/L (39-117); Aspartate Amino Transferase 30 U/L (5-37); Bilirubin Direct 0.2 mg/dL (0.0-0.5); Bilirubin Total 0.6 mg/dL (0.0-1.0); Total Protein 7.8 g/dL (6.5-8.0)
[2023-05-18 12:39] LABS: Alpha Fetoprotein 3.5 ng/mL (<6.1)
[2023-05-26 14:48] LABS: FIB-ALT 52 U/L (9-46); FIB-Alpha-2-Macroglobulin 149 mg/dL (106-279); FIB-Apolipoprotein A1 139 mg/dL (94-176); FIB-GGT 56 U/L (3-95); FIB-Haptoglobin 264 mg/dL (43-212); FIB-Total Bilirubin 0.5 mg/dL (0.2-1.2); Liver Fibrosis Score 0.14; Liver Fibrosis Stage F0; Nec Inflam Act Grade A0-A1; Nec Inflam Act Score 0.25
== END 2023-05-17 11:56 | disposition home or self-care (01) ==
LOC: HO.10HDL 11:55
PROVIDERS: Visit Provider Internal Medicine
DX: K76.0 Fatty (change of) liver, not elsewhere classified (principal); K74.00 Hepatic fibrosis, unspecified
CPT/HCPCS: 36415; 80076; 81596; 82105; 85025; 85610

== ENCOUNTER 2023-05-20 06:22 | Day surgery (SDC) | payer MEDICARE, MEDICAID, SELFPAY ==
[2023-05-17 14:20] VITALS: BMI 30.5
--- NOTE | 2023-05-19 09:55 | P.CONAN_ITS ---
Documented by User: Shahida Hackett NP 05/19/23 09:58 HPI - Anesthesia Eval Consult details Narrative: 52yo F for Colonoscopy Cervical spinal stim implant in situ Anesthesia Pre-Procedure Meds Is the patient on any of the following meds?: Dulaglutide (Trulicity) PMFSH Active Problems Active Problems: All Active Problems (Updated 04/05/23 @ 13:35 by Jeffrey Mann MD) Vertebrogenic low back pain (Acute) Trigger finger, right index finger (Acute) Trigger finger, right middle finger (Acute) Trigger finger (Acute) Ventral hernia (Acute) Physical exam (Acute) OSKAR on CPAP (Acute) Allergic rhinitis (Acute) Hypovitaminosis D (Acute) Mild depression (Acute) Fibromyalgia (Acute) Essential hypertension (Acute) H/O rotator cuff surgery (Acute) Right knee pain (Acute) Left knee pain (Acute) Right shoulder pain (Acute) Radiculopathy, lumbar region (Acute) Cervical postlaminectomy syndrome (Acute) Impingement syndrome of right shoulder (Acute) Radiculopathy, cervical (Acute) Polyarthralgia (Acute) Diabetes mellitus (Acute) Pure hypercholesterolemia (Acute) Insomnia (Acute) Past Medical History Medical History (Updated 04/05/23 @ 13:35 by Jeffrey aMnn MD) Allergic rhinitis Hypovitaminosis D Mild depression Fibromyalgia Essential hypertension Spinal cord stimulator status Right knee pain Left knee pain Right shoulder pain Radiculopathy, lumbar region Cervical postlaminectomy syndrome Impingement syndrome of right shoulder Radiculopathy, cervical OSKAR on CPAP Polyarthralgia Pure hypercholesterolemia Insomnia Depression Diabetes mellitus Elevated liver enzymes Knee pain Bilateral carpal tunnel syndrome Low back pain Neck pain Family History Family History Father Diabetes Hypertension Mother Diabetes Hypertension Maternal Grandmother Cancer Maternal Grandfather Cancer Paternal Uncle Stroke Brother No problems noted. Sister No problems noted. Sister No problems noted. Son No problems noted. Son No problems noted. Daughter No problems noted. Surgical History Surgical History History of liver biopsy S/P placement of nerve stimulator H/O rotator cuff surgery H/O shoulder surgery History of cervical spinal surgery Social History Social History (Reviewed 03/31/23 @ 14:40 by VERONA Marquis Housing: Apartment Alcohol intake: never Patient Tobacco Use Status: Former Tobacco user Tobacco use type: Cigarette Smoked in Last 30 Days: No e-Cigarette/Vaping Use: Never Used Second Hand Smoke Exposure: No Use of substances other than those prescribed or required for medical reasons: No Are you DNR?: No Advance Directives: No Advance Directives Information Provided: Yes service: No Current occupational status: disabled Current occupation: rt handed Cognitive needs: Yes Hearing needs: No Vision needs: No Meds Allergies Allergy/AdvReac Type Severity Reaction Status Date / Time aspirin [ASA] Allergy Severe ANAPHYLAXIS Verified 05/20/23 07:05 gabapentin Allergy Intermediate sore thoat Verified 05/20/23 07:05 orphenadrine Allergy Intermediate restless Verified 05/20/23 07:05 legs ranitidine Allergy Intermediate restless Verified 05/20/23 07:05 leg tramadol Allergy Intermediate dry mouth, Verified 05/20/23 07:05 inadequate response Home Medications Medication Instructions Recorded Confirmed Last Taken Type cane #1 ea 03/05/20 03/22/23 Unknown History cpap 6-16cm h20 #1 ea 03/05/20 03/22/23 Unknown History hydroxyzine HCl 25 mg tablet 25 mg PO BID 03/05/20 05/20/23 Unknown History vitamin E 200 unit capsule 400 unit PO DAILY 03/05/20 05/20/23 Unknown History fluoxetine 20 mg capsule 60 mg PO DAILY 03/07/20 05/20/23 Unknown History cetirizine 10 mg tablet 10 mg PO DAILY 11/17/22 05/20/23 Unknown History Exam Height,Weight and Vital Signs: Height 6 ft 2.5 in Weight 109.316 kg Pertinent Lab Results Pertinent Lab Results: Laboratory Tests 03/17/23 05/17/23 10:47 12:05 WBC 8.2 Hgb 14.5 Hct 44.5 Plt Count 240 Sodium 139 Potassium 4.3 Chloride 103 Carbon Dioxide 25 BUN 11 Creatinine 1.10 Assessment and Plan Assessment Anesthesia Assessment: Chart Reviewed Documented by User: Sumit Nelson MD 05/20/23 07:38 HPI - Anesthesia Eval Anesthesia Pre-Procedure Meds If Yes to any meds - educate patient: Pt education - increased risk of aspiration PMFSH Past Medical History Medical History (Updated 04/05/23 @ 13:35 by Jeffrey Mann MD) Allergic rhinitis Hypovitaminosis D Mild depression Fibromyalgia Essential hypertension Spinal cord stimulator status Right knee pain Left knee pain Right shoulder pain Radiculopathy, lumbar region Cervical postlaminectomy syndrome Impingement syndrome of right shoulder Radiculopathy, cervical OSKAR on CPAP Polyarthralgia Pure hypercholesterolemia Insomnia Depression Diabetes mellitus Elevated liver enzymes Knee pain Bilateral carpal tunnel syndrome Low back pain Neck pain Family History Family History Father Diabetes Hypertension Mother Diabetes Hypertension Maternal Grandmother Cancer Maternal Grandfather Cancer Paternal Uncle Stroke Brother No problems noted. Sister No problems noted. Sister No problems noted. Son No problems noted. Son No problems noted. Daughter No problems noted. Family history of problems with anesthesia: No Surgical History Surgical History History of liver biopsy S/P placement of nerve stimulator H/O rotator cuff surgery H/O shoulder surgery History of cervical spinal surgery History of Problems with Anesthesia: No Social History Social History Housing: Apartment Alcohol intake: never Patient Tobacco Use Status: Former Tobacco user Tobacco use type: Cigarette Smoked in Last 30 Days: No e-Cigarette/Vaping Use: Never Used Second Hand Smoke Exposure: No Use of substances other than those prescribed or required for medical reasons: No Are you DNR?: No Advance Directives: No Advance Directives Information Provided: Yes service: No Current occupational status: disabled Current occupation: rt handed Cognitive needs: Yes Hearing needs: No Vision needs: No Meds Allergies Allergy/AdvReac Type Severity Reaction Status Date / Time aspirin [ASA] Allergy Severe ANAPHYLAXIS Verified 05/20/23 07:05 gabapentin Allergy Intermediate sore thoat Verified 05/20/23 07:05 orphenadrine Allergy Intermediate restless Verified 05/20/23 07:05 legs ranitidine Allergy Intermediate restless Verified 05/20/23 07:05 leg tramadol Allergy Intermediate dry mouth, Verified 05/20/23 07:05 inadequate response Home Medications Medication Instructions Recorded Confirmed Last Taken Type cane #1 ea 03/05/20 03/22/23 Unknown History cpap 6-16cm h20 #1 ea 03/05/20 03/22/23 Unknown History hydroxyzine HCl 25 mg tablet 25 mg PO BID 03/05/20 05/20/23 Unknown History vitamin E 200 unit capsule 400 unit PO DAILY 03/05/20 05/20/23 Unknown History fluoxetine 20 mg capsule 60 mg PO DAILY 03/07/20 05/20/23 Unknown History cetirizine 10 mg tablet 10 mg PO DAILY 11/17/22 05/20/23 Unknown History Exam Airway Mallampati Class: II TM Dist: <=3cm Neck ROM: Full Loose/Missing/Broken Teeth: No Heart: ok Lungs: ok Assessment and Plan Assessment Anesthesia Assessment: Anesthesia Plan Discussed Final Anesthetic Review Family History of Problems with Anesthesia: No History of Problems with Anesthesia: No NPO: Yes ASA Class: III Final Preanesthetic Review: No Changes in Pt Med Stat, Meds/Allgs Chart Reviewed, Consent Obtained/Reviewed and Anes Risks/Benef Reviewed Patient Risk: Intermediate Procedure Risk: Low Anesthetic Plan Anesthetic Plan: GA and Agree w/ Assess. and Plan Disposition: Standard PACU
[2023-05-20 06:57] VITALS: BMI 32.2
[2023-05-20 07:04] LABS: Glucose, Whole Blood 123 mg/dL (60-115)
[2023-05-20] MEDS: Sodium Phosphate,Mono-Dibasic 133 ML ENEMA PR (07:19)
[2023-05-20 07:23] VITALS: BP 134/87; PULSE 80; RESP 16; TEMP 36.7; O2SAT 98
[2023-05-20] MEDS: Lactated Ringers 1,000 ML 100 ML IVCONT (07:32)
[2023-05-20 08:28] VITALS: BP 98/63; PULSE 81; RESP 18; TEMP 36.6; O2SAT 97
--- NOTE | 2023-05-20 08:29 | PM.OP ---
Brief Operative Note Date of Service: 05/20/23 Pre-op diagnosis: Screening Post-op diagnosis: other (Polyps) Procedure: Colonoscopy to the cecum with bx/removal of AC polyp and hot snare polypectomy x 3 of rectal polyps Surgeon: Walt Rain MD Anesthesia: MAC Was an Vegetable Loader used for this Procedure?: No Estimated blood loss (mL): 2.0 Pathology: other (A. Ascending colon polyp B. Rectal polyps) Condition: stable Disposition: PACU
[2023-05-20 08:45] VITALS: BP 119/78; PULSE 84; RESP 18; TEMP 36.6; O2SAT 99
--- NOTE | 2023-05-20 09:00 | OP_ITS ---
DATE OF SERVICE: 05/20/2023 SURGEON: Walt Rain MD PREOPERATIVE DIAGNOSIS: Colorectal cancer screening. POSTOPERATIVE DIAGNOSIS: Colorectal cancer screening, colon and rectal polyps, diverticulosis, and internal hemorrhoids. PROCEDURE PERFORMED: Colonoscopy to the cecum with biopsy and removal of polyp, and hot snare polypectomy of three rectal polyps. Full consent has been obtained from him for this, including risks of bleeding and perforation. ESTIMATED BLOOD LOSS: COMPLICATIONS: ANESTHESIA: Medication Used: Monitored anesthesia care. ASSISTANTS: SPECIMENS: DESCRIPTION OF PROCEDURE: The patient was placed in the left lateral decubitus position. The digital rectal exam revealed no abnormalities. The Olympus video pediatric colonoscope was entered into the rectum and advanced to the cecum with the assistance of abdominal wall pressure. Once in the cecum, I did identify a normal-appearing cecal pouch with appendiceal orifice and a normal-appearing ileocecal valve. The entire cecum and the ileocecal valve appeared normal. There was transillumination of light deep in the right lower quadrant. The scope was then slowly withdrawn, assessing all mucosal surfaces carefully. Preparation was excellent. In the proximal ascending colon, was a flat, approximately 3 or 4 mm polyp, which was biopsied and completely removed with cold biopsy forceps. There was a mild amount of sigmoid diverticulosis. I did not visualize any sign of colitis nor angiodysplasia. In the rectum were three polyps ranging in size from 4 to 8 mm. These were all removed by hot snare polypectomy and recovered by suction. All of the polypectomy sites appeared clean, without any sign of residual polyp nor bleeding. The scope was retroflexed, visualizing some small internal hemorrhoids as well. The scope was straightened and withdrawn from the patient. He tolerated the procedure well and was returned to the recovery area in stable condition. IMPRESSION: 1. Colorectal polyps. 2. Mild diverticulosis. 3. Small internal hemorrhoids. PLAN: The results of the pathology will be checked. If any of these are tubular adenoma, I would recommend a followup coloscopy in 5 years. If they happen to be all hyperplastic, then I would recommend a followup colonoscopy in 10 years. He was advised not to use any aspirin or NSAIDs for 1 week. He was advised to see me in 1 year for followup of his underlying fatty liver. He was advised to resume his Trulicity today. MD BRITNI Santamaria/JERMAINE / [phone] BHAVNA
== END 2023-05-20 09:29 | disposition home or self-care (01) ==
PROVIDERS: PCP Internal Medicine; Visit Provider Internal Medicine
PROC: 0DJD8ZZ Inspection of Lower Intestinal Tract, Via Natural or Artificial Opening Endoscopic (ICD-10-PCS; CPT 45378; principal; 2023-05-20 07:30)
DX: Z12.11 Encounter for screening for malignant neoplasm of colon (principal); D12.2 Benign neoplasm of ascending colon; D12.8 Benign neoplasm of rectum; K57.30 Diverticulosis of large intestine without perforation or abscess without bleeding; K64.8 Other hemorrhoids; K76.0 Fatty (change of) liver, not elsewhere classified; K74.00 Hepatic fibrosis, unspecified; E11.9 Type 2 diabetes mellitus without complications; I10 Essential (primary) hypertension; E78.00 Pure hypercholesterolemia, unspecified; G47.33 Obstructive sleep apnea (adult) (pediatric); Z99.89 Dependence on other enabling machines and devices; Z79.85 Long-term (current) use of injectable non-insulin antidiabetic drugs; Z79.02 Long term (current) use of antithrombotics/antiplatelets; Z79.899 Other long term (current) drug therapy
CPT/HCPCS: 45385; 45380; 82947; 88305; J2704

== ENCOUNTER 2023-07-05 13:40 | Outpatient (AMB) | payer MEDICARE, MEDICAID, SELFPAY ==
[2023-07-05 13:44] VITALS: BP 114/80; BMI 32.8
--- NOTE | 2023-07-05 13:44 | A.OFFPC_ITS ---
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 Required: No Accompanied by: Self / Same As Patient Allergies aspirin [ASA] Allergy (Severe, Verified 07/05/23 14:03) ANAPHYLAXIS gabapentin Allergy (Intermediate, Verified 07/05/23 14:03) sore thoat orphenadrine Allergy (Intermediate, Verified 07/05/23 14:03) restless legs ranitidine Allergy (Intermediate, Verified 07/05/23 14:03) restless leg tramadol Allergy (Intermediate, Verified 07/05/23 14:03) dry mouth, inadequate response Medication List - Last Reconciled 07/05/23 by Adelina Grant MD blood pressure monitor As directed blood sugar diagnostic (FreeStyle Lite Strips) 1 strip miscellaneous BID 30 days blood-glucose meter (FreeStyle Lite Meter kit) As directed cane As directed cetirizine 10 mg PO DAILY cholecalciferol (vitamin D3) 25 mcg PO DAILY 90 days [cpap 6-16cm h20 ] dulaglutide (Trulicity) 0.75 mg (0.5 mL) subcut QWEEK 90 days fluoxetine 60 mg PO DAILY hydroxyzine HCl 25 mg PO BID lancets (FreeStyle Lancets) 28 gauge topical BID 30 days metformin 1,000 mg (2 x 500 mg) PO BID 90 days oxycodone 5 mg PO TID PRN 30 days pregabalin 100 mg PO BID 30 days rosuvastatin 40 mg PO DAILY 90 days trazodone 150 mg PO BEDTIME PRN 90 days vitamin E 400 units PO DAILY Tobacco use date assessed: 07/05/23 Dental Screening Dental Screen Date: 07/05/23 Did you have a dental visit in the last 12 months?: No Did you have a dental problem in the last 6 months where you did not have access to dental care?: No Was dental information given to patient?: Patient has dentist HPI HPI Comments History of Present Illness Details This is a 53-year-old male with mild depression and diabetes mellitus type 2 that comes for his physical exam. Depression somewhat stable with SSRIs and this is follow by Psychiatry. A1c not on goal and Trulicity will be increased. Colonoscopy done May 2023 showing tubular adenoma. Walks with a cane for gait stability. [facility], [facility] Medical History (Updated 07/05/23 @ 14:14 by Adelina Grant MD) Allergic rhinitis Hypovitaminosis D Mild depression Fibromyalgia Essential hypertension Spinal cord stimulator status Right knee pain Left knee pain Right shoulder pain Radiculopathy, lumbar region Cervical postlaminectomy syndrome Impingement syndrome of right shoulder Radiculopathy, cervical OSKAR on CPAP Polyarthralgia Pure hypercholesterolemia Insomnia Depression Diabetes mellitus Elevated liver enzymes Knee pain Bilateral carpal tunnel syndrome Low back pain Neck pain Surgical History History of liver biopsy S/P placement of nerve stimulator H/O rotator cuff surgery H/O shoulder surgery History of cervical spinal surgery Family History Father Diabetes Hypertension Mother Diabetes Hypertension Maternal Grandmother Cancer Maternal Grandfather Cancer Paternal Uncle Stroke Brother No problems noted. Sister No problems noted. Sister No problems noted. Son No problems noted. Son No problems noted. Daughter No problems noted. Social History Housing: Apartment Alcohol intake: never Patient Tobacco Use Status: Former Tobacco user Tobacco use type: Cigarette e-Cigarette/Vaping Use: Never Used Second Hand Smoke Exposure: No service: No Current occupational status: disabled Current occupation: rt handed Cognitive needs: Yes Hearing needs: No Vision needs: No Questionnaire PHQ-9 Over the last 2 weeks, how often have you been bothered by any of the following problems? 1. Little interest or pleasure in doing things: nearly every day 2. Feeling down, depressed, or hopeless: several days 3. Trouble falling or staying asleep, or sleeping too much: several days 4. Feeling tired or having little energy: nearly every day 5. Poor appetite or overeating: not at all 6. Feeling bad about yourself - or that you are a failure or have let yourself or your family down: several days 7. Trouble concentrating on things, such as reading the newspaper or watching television: more than half the days 8. Moving or speaking so slowly that other people could have noticed. Or the opposite - being so fidgety or restless that you have been moving around a lot more than usual: nearly every day 9. Thoughts that you would be better off or of hurting yourself in some way: not at all Total score: 14 Depression Screening Interpretation: Positive Depression Screening Follow-up: Existing condition and In treatment Depression Screening Done: Yes 16578 - PHQ-9 Billing: Yes Source: Developed by Drs. Walt Arnold, Latanya Miller, Juan Carvalho and colleagues, with an educational jenna from [employer]. Thrive Questionnaire Date Thrive assessed: 07/05/23 I am a: Patient What is your living situation today?: I have a steady place to live Within the past 12 months, did the food you bought not last and you didn't have the money to get more?: Never true Within the past 12 months, did you worry whether your food would run out before you got money to buy more?: Never true Do you have trouble paying for medicines?: No Do you have trouble getting transportation to medical appointments?: No Do you have trouble paying your heating and electricity bill?: No Do you have trouble taking care of your child, family member or friend?: No Do you have trouble with day-to-day activities such as bathing, preparing meals, shopping, managing finances, etc.?: No Are you currently unemployed and looking for a job?: No Are you interested in more education?: No Please select the resources that you would like help with: None Currently or been in a relationship where the following occur: no concerns reported THRIVE Score: 0 AUDIT C Alcohol Use Questionnaire (AUDIT-C) 1. How often do you have a drink containing alcohol?: Never Total Score: 0 DAVID-7 AMB Questionnaire DAVID-7 Date DAVID - 7 assessed: 07/05/23 Feeling nervous, anxious, or on edge: 3 = Nearly every day Not being able to stop or control worryin = Several days Worrying too much about different things: 3 = Nearly every day Trouble relaxin = Nearly every day Being so restless that it is hard to sit still: 1 = Several days Becoming easily annoyed or irritable: 2 = More than half the days Feeling afraid as if something awful might happen: 0 = Not at all Total DAVID-7 score (0-4 normal; 5-9 mild; 10-14 moderate; 15-21 severe): 13 Source: Developed by Drs. Walt Arnold, Latanya Miller, Juan Carvalho and colleagues, with an educational jenna from [employer]. DAVID-7 Assessment Billing DAVID-7 Assessment Tool: DAVID-7 Assessment 29051 Review of Systems Const All systems reviewed & are unremarkable except as noted in HPI and below Eyes Reports no additional complaints, Denies change in vision and Denies other visual disturbances Card Denies chest pain at rest, Denies chest pain with activity, Denies edema, Denies irregular heart rhythm, Denies claudication, Denies dyspnea, Denies dyspnea on exertion, Denies orthopnea, Denies paroxysmal nocturnal dyspnea and Denies slow heart rate Resp Denies cough, Denies dyspnea and Denies dyspnea on exertion GI Denies abdominal pain, Denies change in bowel habits, Denies excessive flatus, Denies nausea and Denies vomiting Denies urinary hesitancy, Denies urinary incontinence and Denies urinary urgency Musc Denies abnormal gait, Denies atrophy, Denies deformity and Denies limited range of motion Skin/Breast Denies bleeding lesions, Denies changing lesions and Denies rash Neuro Denies abnormal gait, Denies behavioral changes, Denies confusion and Denies lack of coordination Psych Denies behavioral changes and Denies confusion Physical exam (Primary Care) Vital Signs: Last Vital Signs BP 114/80 07/05/23 13:44 BMI result Body Mass Index 32.8 Tobacco/Smoking Status: Tobacco use Status Tobacco use date assessed 07/05/23 07/05/23 13:56 Patient Tobacco Use Status Former Tobacco user 07/05/23 13:45 Tobacco use type Cigarette 07/05/23 13:45 e-Cigarette/Vaping Use Never Used 07/05/23 13:45 PHQ-9: PHQ-9 Score PHQ-9: Total score 14 07/05/23 14:08 Depression Screening Interpretation: Positive Depression Screening Follow-up: Existing condition and In treatment Thrive Assessment: Date of Thrive Assessment Date Thrive assessed 07/05/23 07/05/23 13:56 Currently or been in a relationship where the following occur: no concerns reported Const General: No confusion Orientation/consciousness: patient oriented x3 and No confusion HENMT Head: Yes normal to inspection, Yes normocephalic and Yes atraumatic Ears: external ears normal Eyes General: appearance normal, both eyes and all related structures Eyelids: Yes eyelids normal Conjunctivae: conjunctivae normal Neck Neck: Yes normal visual inspection and Yes supple Resp Effort & Inspection: normal respiratory effort Auscultation: clear to auscultation bilaterally Cardio Jugular venous distension: no JVD Rate: regular rate Rhythm: regular rhythm Heart sounds: S1 normal heart sound present and S2 normal heart sound present GI Inspection: Yes normal to inspection Palpation (GI): Soft to palpation and nontender Auscultation: normal bowel sounds Skin General skin exam: no rashes or lesions noted Neuro General: patient oriented x3, no focal motor deficits and No confusion Extrem General: Yes full ROM Psych Appearance: grossly normal Results AMB Hemoglobin A1c AMB Hemoglobin A1c 8.2 % Last Edit by GLORIA Thurston on 07/05/23 13:5 7 Results Reviewed Results Reviewed: Laboratory Last Values Hgb A1c (Clinic) 8.2 % (4.0-6.0) H 07/05/23 13:43 Assessment and Plan Assessment & Plan (1) Physical exam: Code(s): Z00.00 - Encounter for general adult medical examination without abnormal findings Plan: Repeat in a year. (2) Diabetes mellitus: Comment: NIDDM Code(s): E11.9 - Type 2 diabetes mellitus without complications Qualifiers: Diabetes mellitus type: type 2 Diabetes mellitus custodial insulin use: without termite control representative use Diabetes mellitus complication status: without complication Qualified Code(s): E11.9 - Type 2 diabetes mellitus without complications Plan: Continue metformin. Increase Trulicity. A1c goal is equal or less than 7%. (3) Mild depression: Code(s): F32.0 - Major depressive disorder, single episode, mild Plan: Continue SSRIs. Follow-up with psychiatry. Orders: Orders Microalbumin, Random (w Creat) 4 Months E11.9 - Type 2 diabetes mellitus without complications Vitamin D 25-OH Total 4 Months E55.9 - Vitamin D deficiency, unspecified Comprehensive [place]. Panel Fast 4 Months E11.9 - Type 2 diabetes mellitus without complications Lipid Panel 4 Months E78.5 - Hyperlipidemia, unspecified Testosterone, Free/Total 4 Months N52.9 - Male erectile dysfunction, unspecified AMB Hemoglobin A1c Today E11.9 - Type 2 diabetes mellitus without complications Medications: New sildenafil administer 30 minutes to 4 hours before activity 50 mg PO DAILY 30 days PRN 3 tabs 0RF sexual activity N52.9 - Male erectile dysfunction, unspecified sennosides (senna) 8.6 mg PO BEDTIME 30 days PRN 30 tabs 1RF constipation dulaglutide (Trulicity) 1.5 mg (0.5 mL) subcut QWEEK 90 days 6.5 mL 1RF E11.9 - Type 2 diabetes mellitus without complications Discontinued dulaglutide (Trulicity) Discontinued Reason: Patient Completed Course 0.75 mg (0.5 mL) subcut QWEEK 90 days 6.5 mL 1RF Coding Level of Care Code Est Pt Prev Care 40-64y(57483) Diagnoses Physical exam Z00.00 Type 2 diabetes mellitus without complication, without long-term current use of insulin E11.9 Diabetes mellitus type: type 2 Diabetes mellitus custodial insulin use: without termite control representative use Diabetes mellitus complication status: without complication Mild depression F32.0 Additional Codes DAVID-7 Assessment Billing - DAVID-7 Assessment Tool: DAVID-7 Assessment 78037 ([id number]) Time Spent (min) 33
== END 2023-07-05 14:16 | disposition home or self-care (01) ==
PROVIDERS: PCP Internal Medicine; Visit Provider Internal Medicine
DX: Z00.00 Encounter for general adult medical examination without abnormal findings (principal); E11.9 Type 2 diabetes mellitus without complications; F32.0 Major depressive disorder, single episode, mild
CPT/HCPCS: 83036; 99396

== ENCOUNTER 2023-07-15 12:04 | Day surgery (SDC) | payer MEDICARE, MEDICAID, SELFPAY ==
[2023-07-15 12:18] VITALS: BMI 31.9
--- NOTE | 2023-07-15 13:14 | MHC.SHP ---
Pre-Procedural Eval Section A - 24 Hr Update-Section A only Date of Service: 07/15/23 The patient is an INPATIENT: No Changes since office visit: No Cold of Flu in the past 2 weeks, No New Medical Problems, No Changes in Medication and No Patient answered all questions The patient has been examined within 24 hours of the surgical procedure. The History & Physical has been completed within 30 days and I have reviewed it.: Yes Section B - Complete if H&P > 30 days Chief Complaint: Index and Middle finger trigger release Allergies: Allergies Allergy/AdvReac Type Severity Reaction Status Date / Time aspirin [ASA] Allergy Severe ANAPHYLAXIS Verified 07/05/23 14:03 gabapentin Allergy Intermediate sore thoat Verified 07/05/23 14:03 orphenadrine Allergy Intermediate restless Verified 07/05/23 14:03 legs ranitidine Allergy Intermediate restless Verified 07/05/23 14:03 leg tramadol Allergy Intermediate dry mouth, Verified 07/05/23 14:03 inadequate response Plan I have reviewed the history and physical and performed a pertinent physical examination on my patient. No changes have occurred unless specified. Time Spent With Patient Time: Total time managing care of this patient today ____ minutes.
--- NOTE | 2023-07-15 13:14 | W.PM.OPN ---
Operative Note Operative Note Date of Service: 07/15/23 Narrative: Operative Note Preop diagnosis: 1. Right index finger Trigger finger 2. Right middle finger trigger finger Postop diagnosis: Same Procedure: 1. Right index finger A1 tex release 2. Right middle finger A1 tex release Surgeon: Sallie Pantoja MD Anesthesia: local block using 1% lidocaine with epinephrine Findings: No locking or catching after A1 tex release EBL: Less than 5 mL Tourniquet time: None Specimens: None Complications: None Disposition: Brought to recovery room in stable condition Plan: Follow-up for 10-14 days for wound check and suture removal Indications: The patient is 53 years old, with right index finger and right middle finger trigger fingers that have been unresponsive to nonoperative management. The risks and benefits of operative treatment including but not limited to risk of damage to blood vessels, nerves, tendons, infection, persistent pain, persistent symptoms, recurrence or possible need for additional surgery were discussed with the patient and the patient wishes to proceed with surgery. Procedure: Once consent was obtained a local block was performed in the preop area using a combination of 1% lidocaine with epinephrine. The patient was then brought back to the operating suite and placed on the operative table in supine position. The right upper extremity was prepped and draped in a standard surgical fashion. Once assured that we had a good block, a 1.5 cm oblique incision was made centered over the A1 tex of the right index finger . The incision was made through the skin to the subcutaneous tissues using a #15 blade. Careful dissection was made down to the level of the A1 tex using tenotomy scissors, with care being taken to protect the nearby neurovascular structures. A longitudinal incision was made in the A1 tex 1st using a #15 blade, then using tenotomy scissors under direct visualization. The A1 tex was noted to be thickened. Following our A1 tex release, we no longer saw any locking or catching of the digit with flexion and extension. Once assured that we had a good block, a 1.5 cm oblique incision was made centered over the A1 tex of the right middle finger . The incision was made through the skin to the subcutaneous tissues using a #15 blade. Careful dissection was made down to the level of the A1 tex using tenotomy scissors, with care being taken to protect the nearby neurovascular structures. A longitudinal incision was made in the A1 tex 1st using a #15 blade, then using tenotomy scissors under direct visualization. The A1 tex was noted to be thickened. Following our A1 tex release, we no longer saw any locking or catching of the digit with flexion and extension. Once satisfied with our A1 tex release the wound was copiously irrigated with normal saline and hemostasis was obtained with a brief period of local pressure. The skin edges were reapproximated with some 5.0 nylon suture material and a sterile dressing was applied. The patient appears to have tolerated the procedure well and with no complications. All digits were well vascularized at the conclusion of the case.
[2023-07-15 15:02] VITALS: BP 113/71; PULSE 78; RESP 16; O2SAT 96
== END 2023-07-15 15:04 | disposition home or self-care (01) ==
PROVIDERS: PCP Internal Medicine; Visit Provider Orthopaedic Surgery
PROC: (CPT 26055; principal; 2023-07-15 12:30)
DX: M65.331 Trigger finger, right middle finger (principal); M65.321 Trigger finger, right index finger; E11.9 Type 2 diabetes mellitus without complications; E78.00 Pure hypercholesterolemia, unspecified; I10 Essential (primary) hypertension
CPT/HCPCS: 26055 ×2; J0171

== ENCOUNTER → 2023-07-15 12:04 | Outpatient (BNV) | payer MEDICARE, MEDICAID, SELFPAY | PROVIDERS: PCP Internal Medicine; Visit Provider Orthopaedic Surgery | DX: M65.331 Trigger finger, right middle finger (principal); M65.321 Trigger finger, right index finger | CPT/HCPCS: 26055 ==

== ENCOUNTER 2023-07-28 09:39 | Outpatient (AMB) | payer MEDICARE, MEDICAID, SELFPAY ==
[2023-07-28 09:49] VITALS: BMI 31.9
--- NOTE | 2023-07-28 09:49 | A.OFFVIS_ITS ---
Intake Vital Signs 07/28/23 09:49 Height 6 ft Weight 235 lb BMI 31.9 Intake Visit Reasons: PO R IF and MF trigger release 07/15 Intake Note: Ben 53 yr old male presents today for his P/O visit for his right IF and MF trigger release from 07/15/23. Sates triggering has resolved. Sutures removed and steri strips applied. Allergies aspirin [ASA] Allergy (Severe, Verified 07/28/23 09:58) ANAPHYLAXIS gabapentin Allergy (Intermediate, Verified 07/28/23 09:58) sore thoat orphenadrine Allergy (Intermediate, Verified 07/28/23 09:58) restless legs ranitidine Allergy (Intermediate, Verified 07/28/23 09:58) restless leg tramadol Allergy (Intermediate, Verified 07/28/23 09:58) dry mouth, inadequate response HPI PO R IF and MF trigger release 07/15 HPI Details Ben is a 52 year old right hand dominant man who returns S/P right index & middle finger trigger release, DOS: 07/15/23. He says he is doing well and no longer has any locking or catching. He does feel some tightness in his fingers when placing his hand flat on the table however. [facility] Medical History (Updated 07/05/23 @ 14:14 by Adelina Grant MD) Allergic rhinitis Hypovitaminosis D Mild depression Fibromyalgia Essential hypertension Spinal cord stimulator status Right knee pain Left knee pain Right shoulder pain Radiculopathy, lumbar region Cervical postlaminectomy syndrome Impingement syndrome of right shoulder Radiculopathy, cervical OSKAR on CPAP Polyarthralgia Pure hypercholesterolemia Insomnia Depression Diabetes mellitus Elevated liver enzymes Knee pain Bilateral carpal tunnel syndrome Low back pain Neck pain Surgical History History of liver biopsy S/P placement of nerve stimulator H/O rotator cuff surgery H/O shoulder surgery History of cervical spinal surgery Family History Father Diabetes Hypertension Mother Diabetes Hypertension Maternal Grandmother Cancer Maternal Grandfather Cancer Paternal Uncle Stroke Brother No problems noted. Sister No problems noted. Sister No problems noted. Son No problems noted. Son No problems noted. Daughter No problems noted. Social History (Reviewed 07/28/23 @ 09:59 by VERONA Marquis Housing: Apartment Alcohol intake: never Patient Tobacco Use Status: Former Tobacco user Tobacco use type: Cigarette e-Cigarette/Vaping Use: Never Used Second Hand Smoke Exposure: No service: No Current occupational status: disabled Current occupation: rt handed Cognitive needs: Yes Hearing needs: No Vision needs: No Review of Systems Const All systems reviewed & are unremarkable except as noted in HPI and below Physical Exam Vital Signs: BMI result Body Mass Index 31.9 Const General: no acute distress and alert Orientation/consciousness: patient oriented x3 Neuro General: patient oriented x3 Extrem Other: The patient was alert oriented and in no acute distress The incision is healing well with no erythema drainage or evidence of infection. Sutures removed and Steri-Strips applied He can make a fist and extend all of his digits He can get his hand flat on the table, but feels tightness in the flexor tendons I demonstrated some ROM exercises today in clinic No locking or catching Sensation is intact Cap refill is brisk Psych Appearance: grossly normal Affect: normal affect Attitude: cooperative Assessment & Plan Assessment & Plan (1) Trigger finger, right index finger: Code(s): M65.321 - Trigger finger, right index finger (2) Trigger finger, right middle finger: Code(s): M65.331 - Trigger finger, right middle finger (3) Fibromyalgia: Code(s): M79.7 - Fibromyalgia Plan Assessment and plan: 1. Right middle finger trigger finger, S/P release DOS: 07/15/23 2. Right index finger trigger finger, S/P release DOS: 07/15/23 The patient appears to be doing well post-operatively I educated him about the post-operative course He has Fibromyalgia and takes 5mg Oxycodone TID for cervical pain I discussed activity modifications, he is to lift nothing heavier than a cellphone for the next two weeks He will perform gentle ROM exercises at home He should avoid any underwater activities for the next 5 days He should gently massage about the incision site to reduce the risk of hypersensitivity He can follow up prn Scribed for Sallie Pantoja MD by Andrey Newby, medical coordinator pesticide use, on 07/28/23 at 9:55 AM, EST. Coding Level of Care Code Global (25772) Diagnoses Trigger finger, right index finger M65.321 Trigger finger, right middle finger M65.331 Fibromyalgia M79.7
== END 2023-07-28 10:08 | disposition home or self-care (01) ==
PROVIDERS: PCP Internal Medicine; Visit Provider Orthopaedic Surgery
DX: M65.321 Trigger finger, right index finger (principal); M65.331 Trigger finger, right middle finger; M79.7 Fibromyalgia
CPT/HCPCS: 99024

== ENCOUNTER → 2023-07-28 09:39 | Outpatient (BNVA) | payer MEDICARE, MEDICAID, SELFPAY | PROVIDERS: PCP Internal Medicine; Visit Provider Orthopaedic Surgery | DX: M65.321 Trigger finger, right index finger (principal); M65.331 Trigger finger, right middle finger; M79.7 Fibromyalgia | CPT/HCPCS: 99212 ==

== ENCOUNTER 2023-11-09 14:41 | Outpatient (AMB) | payer MEDICARE, MEDICAID, SELFPAY ==
--- NOTE | 2023-11-09 14:42 | A.OFFPC_ITS ---
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 Accompanied by: Self / Same As Patient Allergies aspirin [ASA] Allergy (Severe, Verified 11/09/23 15:03) ANAPHYLAXIS gabapentin Allergy (Intermediate, Verified 11/09/23 15:03) sore thoat orphenadrine Allergy (Intermediate, Verified 11/09/23 15:03) restless legs ranitidine Allergy (Intermediate, Verified 11/09/23 15:03) restless leg tramadol Allergy (Intermediate, Verified 11/09/23 15:03) dry mouth, inadequate response Medication List - Last Reconciled 11/09/23 by Adelina Grant MD blood pressure monitor As directed blood sugar diagnostic (FreeStyle Lite Strips) 1 strip miscellaneous BID 30 days blood-glucose meter (FreeStyle Lite Meter kit) As directed cane As directed cetirizine 10 mg PO DAILY cholecalciferol (vitamin D3) 25 mcg PO DAILY 90 days [cpap 6-16cm h20 ] dulaglutide (Trulicity) 0.75 mg (0.5 mL) subcut QWEEK 90 days fluoxetine 60 mg PO DAILY hydroxyzine HCl 25 mg PO BID lancets (FreeStyle Lancets) 28 gauge topical BID 30 days metformin 1,000 mg (2 x 500 mg) PO BID 90 days oxycodone 5 mg PO TID PRN 30 days pregabalin 100 mg PO BID 30 days rosuvastatin 40 mg PO DAILY 90 days sennosides (senna) 8.6 mg PO BEDTIME PRN 30 days sildenafil 50 mg PO DAILY PRN 30 days trazodone 150 mg PO BEDTIME PRN 90 days vitamin E 400 units PO DAILY Tobacco use date assessed: 07/05/23 Dental Screening Dental Screen Date: 07/05/23 HPI HPI Comments History of Present Illness Details This is a 53-year-old male with diabetes mellitus type 2, pure hypercholesterolemia, mild major depression and allergic rhinitis comes today for follow-up on his conditions. Ambulates with a cane due to gait stability secondary to lumbar degenerative disc disease. A1c elevated and I will replace Trulicity with Ozempic. Lipid panel was order and his LDL goal should be less than 70. Mild major depression stable with fluoxetine and follow by Psychiatry. An antihistamines as needed for his allergic rhinitis. [facility] Medical History (Updated 11/09/23 @ 15:19 by Adelina Grant MD) Allergic rhinitis Hypovitaminosis D Mild depression Fibromyalgia Essential hypertension Spinal cord stimulator status Right knee pain Left knee pain Right shoulder pain Radiculopathy, lumbar region Cervical postlaminectomy syndrome Impingement syndrome of right shoulder Radiculopathy, cervical OSKAR on CPAP Polyarthralgia Pure hypercholesterolemia Insomnia Depression Diabetes mellitus Elevated liver enzymes Knee pain Bilateral carpal tunnel syndrome Low back pain Neck pain Surgical History History of liver biopsy S/P placement of nerve stimulator H/O rotator cuff surgery H/O shoulder surgery History of cervical spinal surgery Family History Father Diabetes Hypertension Mother Diabetes Hypertension Maternal Grandmother Cancer Maternal Grandfather Cancer Paternal Uncle Stroke Brother No problems noted. Sister No problems noted. Sister No problems noted. Son No problems noted. Son No problems noted. Daughter No problems noted. Social History Housing: Apartment Alcohol intake: never Patient Tobacco Use Status: Former Tobacco user Tobacco use type: Cigarette e-Cigarette/Vaping Use: Never Used Second Hand Smoke Exposure: No service: No Current occupational status: disabled Current occupation: rt handed Cognitive needs: Yes Hearing needs: No Vision needs: No Questionnaire PHQ-9 Over the last 2 weeks, how often have you been bothered by any of the following problems? 1. Little interest or pleasure in doing things: several days 2. Feeling down, depressed, or hopeless: several days 3. Trouble falling or staying asleep, or sleeping too much: several days 4. Feeling tired or having little energy: several days 5. Poor appetite or overeating: not at all 6. Feeling bad about yourself - or that you are a failure or have let yourself or your family down: not at all 7. Trouble concentrating on things, such as reading the newspaper or watching te levision: not at all 8. Moving or speaking so slowly that other people could have noticed. Or the opposite - being so fidgety or restless that you have been moving around a lot more than usual: not at all 9. Thoughts that you would be better off or of hurting yourself in some way: not at all Total score: 4 Depression Screening Interpretation: Positive Depression Screening Follow-up: Existing condition, In treatment, Community Mental Health Worker F/U and Follow- up Visit Requested Depression Screening Done: Yes 17848 - PHQ-9 Billing: Yes Source: Developed by Drs. Walt Arnold, Latanya Miller, Juan Carvalho and colleagues, with an educational jenna from [employer]. Thrive Questionnaire Date Thrive assessed: 07/05/23 DAVID-7 AMB Questionnaire DAVID-7 Date DAVID - 7 assessed: 07/05/23 Source: Developed by Drs. Walt Arnold, Latanya Miller, Juan Carvalho and colleagues, with an educational jenna from [employer]. Review of Systems Const All systems reviewed & are unremarkable except as noted in HPI and below Card Denies chest pain at rest, Denies chest pain with activity, Denies edema, Denies irregular heart rhythm, Denies claudication, Denies dyspnea, Denies dyspnea on exertion, Denies orthopnea, Denies paroxysmal nocturnal dyspnea and Denies slow heart rate Resp Denies cough, Denies dyspnea and Denies dyspnea on exertion GI Denies abdominal pain, Denies change in bowel habits, Denies excessive flatus, Denies nausea and Denies vomiting Denies urinary hesitancy, Denies urinary incontinence and Denies urinary urgency Physical exam (Primary Care) Vital Signs: Last Vital Signs BP 122/80 11/09/23 14:43 BMI result Body Mass Index 32.8 BMI Assessment/Plan discussion: High BMI High, discussed plan: lifestyle, weight reduction, dietary and physical activity Tobacco/Smoking Status: Tobacco use Status Tobacco use date assessed 07/05/23 11/09/23 14:45 Patient Tobacco Use Status Former Tobacco user 11/09/23 14:45 Tobacco use type Cigarette 11/09/23 14:45 e-Cigarette/Vaping Use Never Used 11/09/23 14:45 Depression Screening Interpretation: Positive Depression Screening Follow-up: Existing condition, In treatment, Community Mental Health Worker F/U and Follow- up Visit Requested Thrive Assessment: Date of Thrive Assessment Date Thrive assessed 07/05/23 11/09/23 14:45 Const Limitations: ambulation with cane Resp Effort & Inspection: normal respiratory effort Auscultation: clear to auscultation bilaterally Cardio Jugular venous distension: no JVD Rate: regular rate Rhythm: regular rhythm Heart sounds: S1 normal heart sound present and S2 normal heart sound present Extrem General: Yes full ROM Results AMB Hemoglobin A1c AMB Hemoglobin A1c 7.6 % Last Edit by GLORIA Thurston on 11/09/23 14:5 6 Results Reviewed Results Reviewed: Laboratory Last Values Hgb A1c (Clinic) 7.6 % (4.0-6.0) H 11/09/23 14:46 Assessment and Plan Assessment & Plan (1) Mild depression: Code(s): F32.0 - Major depressive disorder, single episode, mild Plan: Continue fluoxetine. Follow-up with psychiatry. (2) Diabetes mellitus: Comment: NIDDM Code(s): E11.9 - Type 2 diabetes mellitus without complications Qualifiers: Diabetes mellitus type: type 2 Diabetes mellitus intermediate insulin use: without intermediate frame tender use Diabetes mellitus complication status: without complication Qualified Code(s): E11.9 - Type 2 diabetes mellitus without complications Plan: Continue metformin. Discontinue Trulicity. Start Ozempic. A1c goal is equal or less than 7%. (3) Pure hypercholesterolemia: Code(s): E78.00 - Pure hypercholesterolemia, unspecified Plan: Continue statins. LDL goal is less than 70. (4) Allergic rhinitis: Code(s): J30.9 - Allergic rhinitis, unspecified Qualifiers: Allergic rhinitis trigger: pollen Allergic rhinitis seasonality: seasonal Qualified Code(s): J30.1 - Allergic rhinitis due to pollen Plan: Continue antihistamines as needed. Orders: Orders AMB Hemoglobin A1c Today E11.9 - Type 2 diabetes mellitus without complications Comprehensive [place]. Panel Fast Today E11.9 - Type 2 diabetes mellitus without complications Vitamin D 25-OH Total Today E55.9 - Vitamin D deficiency, unspecified Lipid Panel Today E78.5 - Hyperlipidemia, unspecified Microalbumin, Random (w Creat) Today E11.9 - Type 2 diabetes mellitus without complications Medications: New semaglutide (Ozempic) for 4 weeks 0.25 mg (0.368 mL) subcut QWEEK 4 weeks 1.472 mL 0RF E11.9 - Type 2 diabetes mellitus without complications Discontinued dulaglutide (Trulicity) Discontinued Reason: Patient Completed Course 0.75 mg (0.5 mL) subcut QWEEK 90 days 6.5 mL 1RF Coding Level of Care Code Est Pt Level 4 (80554) Complex EM visit Add On G2211 Diagnoses Mild depression F32.0 Type 2 diabetes mellitus without complication, without long-term current use of insulin E11.9 Diabetes mellitus type: type 2 Diabetes mellitus intermediate insulin use: without intermediate use Diabetes mellitus complication status: without complication Pure hypercholesterolemia E78.00 Seasonal allergic rhinitis due to pollen J30.1 Allergic rhinitis trigger: pollen Allergic rhinitis seasonality: seasonal Time Spent (min) 23
[2023-11-09 14:43] VITALS: BP 122/80; BMI 32.8
== END 2023-11-09 15:13 | disposition home or self-care (01) ==
PROVIDERS: PCP Internal Medicine; Visit Provider Internal Medicine
DX: F32.0 Major depressive disorder, single episode, mild (principal); E11.9 Type 2 diabetes mellitus without complications; E78.00 Pure hypercholesterolemia, unspecified; J30.1 Allergic rhinitis due to pollen
CPT/HCPCS: 83036; 99214; G2211

== ENCOUNTER 2024-01-13 11:01 | Outpatient (REF) | payer MEDICARE, MEDICAID, SELFPAY ==
[2024-01-13 11:56] LABS: Alanine Aminotransferase 62 U/L (0-40); Albumin Level 4.3 g/dL (3.5-5.0); Alkaline Phosphatase 87 U/L (39-117); Anion Gap 13 (12-20); Aspartate Amino Transferase 30 U/L (5-37); Bilirubin Total 0.5 mg/dL (0.0-1.0); Blood Urea Nitrogen 11 mg/dL (9-16); Calcium 9.7 mg/dL (8.4-10.2); Carbon Dioxide 26 mmol/L (22-29); Chloride 104 mmol/L (96-108); Cholesterol 150 mg/dL (<200); Estimated Glomerular Filt Rate > 60; Glucose Fasting 127 mg/dL (60-99); HDL Cholesterol 33 mg/dL (>40); LDL Cholesterol Calculated 80 mg/dL (<100); Potassium 4.5 mmol/L (3.3-5.1); Sodium 138 mmol/L (135-145); Total Protein 7.6 g/dL (6.5-8.0); Triglycerides 187 mg/dL (<150)
[2024-01-13 12:11] LABS: Vitamin D 25-OH Total 40.3 ng/mL (>30)
[2024-01-13 12:22] LABS: Creatinine Urine 176.19 mg/dL; Microalbum/Creatinine Ratio Ur 10.7 ug/mg cr (<30)
[2024-01-28 10:24] LABS: Testosterone, Free 87.1; Testosterone, Total 471
== END 2024-01-13 11:02 | disposition home or self-care (01) ==
LOC: HO.LAB 11:01
PROVIDERS: PCP Internal Medicine; Visit Provider Internal Medicine
DX: E78.5 Hyperlipidemia, unspecified (principal); E55.9 Vitamin D deficiency, unspecified; E11.9 Type 2 diabetes mellitus without complications; N52.9 Male erectile dysfunction, unspecified
CPT/HCPCS: 36415; 80053; 80061; 82043; 82306; 82570; 84402; 84403

== ENCOUNTER 2024-03-23 13:56 | Outpatient (AMB) | payer MEDICARE, MEDICAID, SELFPAY ==
[2024-03-23 14:07] VITALS: BP 126/82; BMI 31.6
--- NOTE | 2024-03-23 14:07 | A.OFFPC_ITS ---
Vital Signs 03/23/24 14:07 Height 6 ft Weight 233 lb BMI 31.6 BP 126/82 Blood Pressure Location Lt brachial Position Sitting Intake Visit Reasons: dm Intake Note: Patient here for a follow up DM National Sales Representative Required: No Accompanied by: Self / Same As Patient Allergies aspirin [ASA] Allergy (Severe, Verified 03/23/24 14:31) ANAPHYLAXIS gabapentin Allergy (Intermediate, Verified 03/23/24 14:31) sore thoat orphenadrine Allergy (Intermediate, Verified 03/23/24 14:31) restless legs ranitidine Allergy (Intermediate, Verified 03/23/24 14:31) restless leg tramadol Allergy (Intermediate, Verified 03/23/24 14:31) dry mouth, inadequate response Medication List - Last Reconciled 03/23/24 by Adelina Grant MD blood pressure monitor As directed blood sugar diagnostic (FreeStyle Lite Strips) 1 strip miscellaneous BID 30 days blood-glucose meter (FreeStyle Lite Meter kit) As directed cane As directed cetirizine 10 mg PO DAILY cholecalciferol (vitamin D3) 25 mcg PO DAILY 90 days [cpap 6-16cm h20 ] fluoxetine 60 mg PO DAILY hydroxyzine HCl 25 mg PO BID lancets (FreeStyle Lancets) 28 gauge topical BID 30 days metformin 1,000 mg (2 x 500 mg) PO BID 90 days oxycodone 5 mg PO TID PRN 30 days pregabalin 100 mg PO BID 30 days rosuvastatin 40 mg PO DAILY 90 days semaglutide (Ozempic) 0.25 mg (0.368 mL) subcut QWEEK 4 weeks semaglutide (Ozempic) 0.5 mg (0.736 mL) subcut QWEEK 4 weeks semaglutide (Ozempic) 1 mg (0.75 mL) subcut QWEEK 4 weeks sennosides (senna) 8.6 mg PO BEDTIME PRN 30 days sildenafil 50 mg PO DAILY PRN 30 days trazodone 150 mg PO BEDTIME PRN 90 days vitamin E 400 units PO DAILY Tobacco use date assessed: 07/05/23 Dental Screening Dental Screen Date: 03/23/24 Did you have a dental visit in the last 12 months?: No Did you have a dental problem in the last 6 months where you did not have access to dental care?: No Was dental information given to patient?: Patient has dentist HPI HPI Comments History of Present Illness Details This is a 53-year-old male with diabetes mellitus type 2, pure hypercholesterolemia and mild depression as well as fibromyalgia that comes today for follow-up on his conditions. Walks with a cane for gait stability due to chronic low back pain. A1c within goal. Blood pressure stable. LDL very close to goal. Depression well controlled with medication and follow by Psychiatry. Denies any chest pain or shortness on breath. Compliant with medications. Aware that oxycodone can cause addiction and sedation. COUNT INCLUDES THE [facility] Medical History Allergic rhinitis Hypovitaminosis D Mild depression Fibromyalgia Essential hypertension Spinal cord stimulator status Right knee pain Left knee pain Right shoulder pain Radiculopathy, lumbar region Cervical postlaminectomy syndrome Impingement syndrome of right shoulder Radiculopathy, cervical OSKAR on CPAP Polyarthralgia Pure hypercholesterolemia Insomnia Depression Diabetes mellitus Elevated liver enzymes Knee pain Bilateral carpal tunnel syndrome Low back pain Neck pain Surgical History History of liver biopsy S/P placement of nerve stimulator H/O rotator cuff surgery H/O shoulder surgery History of cervical spinal surgery Family History Father Diabetes Hypertension Mother Diabetes Hypertension Maternal Grandmother Cancer Maternal Grandfather Cancer Paternal Uncle Stroke Brother No problems noted. Sister No problems noted. Sister No problems noted. Son No problems noted. Son No problems noted. Daughter No problems noted. Social History Housing: Apartment Alcohol intake: never Patient Tobacco Use Status: Former Tobacco user Tobacco use type: Cigarette e-Cigarette/Vaping Use: Never Used Second Hand Smoke Exposure: No service: No Current occupational status: disabled Current occupation: rt handed Cognitive needs: Yes Hearing needs: No Vision needs: No Questionnaire Thrive Questionnaire Date Thrive assessed: 07/05/23 DAVID-7 AMB Questionnaire DAVID-7 Date DAVID - 7 assessed: 07/05/23 Source: Developed by Drs. Walt Arnold, Latanya BJuan Elizondo and colleagues, with an educational jenna from [employer]. Review of Systems Const All systems reviewed & are unremarkable except as noted in HPI and below Card Denies chest pain at rest, Denies chest pain with activity, Denies edema, Denies irregular heart rhythm, Denies claudication, Denies dyspnea, Denies dyspnea on exertion, Denies orthopnea, Denies paroxysmal nocturnal dyspnea and Denies slow heart rate Resp Denies cough, Denies dyspnea and Denies dyspnea on exertion GI Denies abdominal pain, Denies change in bowel habits, Denies excessive flatus, Denies nausea and Denies vomiting Physical exam (Primary Care) Vital Signs: Last Vital Signs BP 126/82 03/23/24 14:07 BMI result Body Mass Index 31.6 BMI Assessment/Plan discussion: High BMI High, discussed plan: lifestyle, weight reduction, dietary and physical activity Tobacco/Smoking Status: Tobacco use Status Tobacco use date assessed 07/05/23 03/23/24 14:13 Patient Tobacco Use Status Former Tobacco user 03/23/24 14:13 Tobacco use type Cigarette 03/23/24 14:13 e-Cigarette/Vaping Use Never Used 03/23/24 14:13 Thrive Assessment: Date of Thrive Assessment Date Thrive assessed 07/05/23 03/23/24 14:13 Const Limitations: ambulation with cane Resp Effort & Inspection: normal respiratory effort Auscultation: clear to auscultation bilaterally Cardio Jugular venous distension: no JVD Rate: regular rate Rhythm: regular rhythm Heart sounds: S1 normal heart sound present and S2 normal heart sound present Extrem General: Yes full ROM Office Procedures Flu Questionnaire Does the patient have a severe egg allergy?: No Results AMB Hemoglobin A1c AMB Hemoglobin A1c 6.3 % Last Edit by GLORIA Thurston on 03/23/24 14:1 9 Immunizations Fluarix Triv [id number] (PF) 45 mcg (15 mcg x 3)/0.5 mL IM syringe Performing Provider: Adelina Grant MD [facility] [place] [facility] Documented (not given) by: GLORIA Thurston on 03/23/24 14:13 Reason Not Given: Patient Refused Results Reviewed Results Reviewed: Laboratory Last Values Hgb A1c (Clinic) 6.3 % (4.0-6.0) H 03/23/24 14:07 Coding Level of Care Code Est Pt Level 4 (69882) Complex EM visit Add On G2211 Diagnoses Mild depression F32.0 Fibromyalgia M79.7 Type 2 diabetes mellitus without complication, without long-term current use of insulin E11.9 Diabetes mellitus type: type 2 Diabetes mellitus fpc insulin use: without fpc use Diabetes mellitus complication status: without complication Pure hypercholesterolemia E78.00 Time Spent (min) 23 Assessment & Plan Assessment & Plan (1) Mild depression: Code(s): F32.0 - Major depressive disorder, single episode, mild Category: Medical Plan: Continue fluoxetine. Follow-up with psychiatry. (2) Fibromyalgia: Code(s): M79.7 - Fibromyalgia Category: Medical Plan: Continue pregabalin. (3) Diabetes mellitus: Comment: NIDDM Code(s): E11.9 - Type 2 diabetes mellitus without complications Category: Medical Qualifiers: Diabetes mellitus type: type 2 Diabetes mellitus manager long term care insulin use: without manager long term care use Diabetes mellitus complication status: without complication Qualified Code(s): E11.9 - Type 2 diabetes mellitus without compli cations Plan: Continue metformin and Ozempic. A1c goal is equal or less than 7%. (4) Pure hypercholesterolemia: Code(s): E78.00 - Pure hypercholesterolemia, unspecified Category: Medical Plan: Continue statins. LDL goal is less than 70. Orders: Orders AMB Hemoglobin A1c Today E11.9 - Type 2 diabetes mellitus without complications Microalbumin, Random (w Creat) 4 Months R80.9 - Proteinuria, unspecified Vitamin D 25-OH Total 4 Months E55.9 - Vitamin D deficiency, unspecified Influenza [id number] Immunization Today Z23 - Encounter for immunization Lipid Panel 4 Months E78.5 - Hyperlipidemia, unspecified Comprehensive [place]. Panel Fast 4 Months E11.9 - Type 2 diabetes mellitus without complications Medications: Changed From cetirizine 10 mg PO DAILY To cetirizine 10 mg PO DAILY 90 tabs 3RF 90 days Refilled pregabalin 100 mg PO BID 60 caps 0RF 30 days Discontinued sildenafil administer 30 minutes to 4 hours before activity Discontinued Reason: Patient Completed Course 50 mg PO DAILY 30 days PRN 3 tabs 0RF sexual activity N52.9 - Male erectile dysfunction, unspecified semaglutide (Ozempic) for 4 weeks Discontinued Reason: Patient Completed Course 0.25 mg (0.368 mL) subcut QWEEK 4 weeks 1.472 mL 0RF E11.9 - Type 2 diabetes mellitus without complications semaglutide (Ozempic) Discontinued Reason: Patient Completed Course 0.5 mg (0.736 mL) subcut QWEEK 4 weeks 2.944 mL 0RF
== END 2024-03-23 14:38 | disposition home or self-care (01) ==
PROVIDERS: PCP Internal Medicine; Visit Provider Internal Medicine
DX: F32.0 Major depressive disorder, single episode, mild (principal); M79.7 Fibromyalgia; E11.9 Type 2 diabetes mellitus without complications; E78.00 Pure hypercholesterolemia, unspecified; Z23 Encounter for immunization

== ENCOUNTER → 2024-03-23 13:56 | Outpatient (BNVA) | payer MEDICARE, MEDICAID, SELFPAY | PROVIDERS: PCP Internal Medicine; Visit Provider Internal Medicine | DX: Z23 Encounter for immunization (principal); F32.0 Major depressive disorder, single episode, mild; M79.7 Fibromyalgia; E11.9 Type 2 diabetes mellitus without complications; E78.00 Pure hypercholesterolemia, unspecified | CPT/HCPCS: 83036; 90471; 99212 ==

== ENCOUNTER 2024-07-03 10:38 | Outpatient (REF) | payer MEDICARE, MEDICAID, SELFPAY ==
[2024-07-03 12:20] LABS: Creatinine Urine 176.56 mg/dL; Microalbum/Creatinine Ratio Ur 3.3 ug/mg cr (<30)
[2024-07-03 12:32] LABS: Alanine Aminotransferase 46 U/L (0-40); Albumin Level 4.4 g/dL (3.5-5.0); Alkaline Phosphatase 83 U/L (39-117); Anion Gap 8 (12-20); Aspartate Amino Transferase 30 U/L (5-37); Bilirubin Total 0.5 mg/dL (0.0-1.0); Blood Urea Nitrogen 11 mg/dL (9-16); Calcium 9.4 mg/dL (8.4-10.2); Carbon Dioxide 28 mmol/L (22-29); Chloride 105 mmol/L (96-108); Cholesterol 206 mg/dL (<200); Estimated Glomerular Filt Rate > 60; Glucose Fasting 102 mg/dL (60-99); HDL Cholesterol 36 mg/dL (>40); LDL Cholesterol Calculated 136 mg/dL (<100); Potassium 4.4 mmol/L (3.3-5.1); Sodium 137 mmol/L (135-145); Triglycerides 172 mg/dL (<150)
[2024-07-03 12:38] LABS: Vitamin D 25-OH Total 36.5 ng/mL (>30)
--- OUTSIDE RECORDS SUMMARY | 2024-07-03 15:25 | XMS_ITS ---
Author Organization [facility] Address [address] [place] [address] Care Team Providers Care Social Sciences Department Chair Name Role Phone Adelina Restrepo Primary Care Provider Unavailab Walt Britt Unavailable [phone] REASON FOR VISIT screening Encounters Encounter Location Date Provider Diagnosis [facility] [place] [address] [place], [place] [phone] 05/19/2023 Walt Rain PLAN OF TREATMENT No Information
--- OUTSIDE RECORDS SUMMARY | 2024-07-03 15:25 | XMS_ITS | Clinical Summary ---
Author Organization [facility] Address [address] [place] [address] Care Team Providers Care Motor Tune Up Specialist Name Role Phone Adelina Restrepo MD Primary Care Provid er Social History Tobacco Use Types Packs/Day Years Used Date Smoking Tobacco: Never Assessed Sex and Gender Information Value Date Recorded Sex Assigned at Not on file Gender Identity Not on file Sexual Orientation Not on file Plan of Treatment Health Maintenance Due Date Last Done Comments Hepatitis B Vaccines (1 of 3 - 3-dose series) 1972 Hepatitis C Screening 1972 COVID-19 Vaccine (#1) 1972 Depression Screening 1984 Preventative Health Evaluation 1990 DTap / Tdap / Td (1 - Tdap) 1991 Colon Cancer Screening (Colonoscopy) 2017 Shingrix-Zoster Vaccine (1 of 2) 2022 Influenza Vaccine (#1) 2024 Pneumococcal Vaccine Aged Out No long er eligible based on patient's age to complete this topic RSV Ped < 20 months Aged Out No longe r eligible based on patient's age to complete this topic Care Teams Motor Tune Up Specialist Relationship Specialty Start Date End Date Adelina Restrepo MD [address] [place] [address] , [address] [facility] D/B/A: [facility] AJ Villalobos [id number] PCP - General Internal Medicine 12/28/17
--- OUTSIDE RECORDS SUMMARY | 2024-07-03 15:25 | XMS_ITS ---
Author Organization [facility] Address [address] [place] [address] Care Team Providers Care Fisher Crab Name Role Phone Adelina Restrepo Primary Care Provider Unavailab Walt Britt Unavailable [phone] REASON FOR VISIT anestheisa Encounters Encounter Location Date Provider Diagnosis [facility] [address] [place] [address] 05/17/2023 Walt Rain PLAN OF TREATMENT No Information
--- OUTSIDE RECORDS SUMMARY | 2024-07-03 15:25 | XMS_ITS | Patient Health Record ---
Author Organization [facility] Address [address] [place] [address] Care Team Providers Care Pony Ride Operator Name Role Phone Adelina Restrepo Primary Care Provider UnavailWalt Vasquez Unavailable [phone] ALLERGIES Allergen (clinical drug ingredient) Drug/Non Drug Allergy documented on EMR Reaction Allergy Type Onset Date Status tramadol Tramadol HCl Unknown Drug Allergy Acti ve Ranitidine HCl Unknown Drug Allergy Ac tive orphenadrine Orphenadrine Citrate Unknown Drug Allergy Active gabapentin Gabapentin Unknown Drug Allergy Activ e Aspir-81 Unknown Drug Allergy Active REASON FOR REFERRAL No Information MEDICATIONS Medication SIG (Take, Route, Frequency, Duration) Notes Start Date End Date Status Ursodiol 500 MG TAKE 2 TABLETS BY MOUTH EVERY MORNING AND TAKE 1 TABLET EVERY EVENING for 90 Not-Taking hydrOXYzine HCl 25 MG Oral for 90 Active Pregabalin 100 MG Oral for 30 Active Trulicity 0.75 MG/0.5ML Subcutaneous for 84 Takes on Active metFORMIN HCl 500 MG TAKE 1 TABLET BY MOUTH EVERY DAY WITH FOOD Oral for 30 Active Rosuvastatin Calcium 20 MG TAKE 1 TABLET BY MOUTH EVERY DAY Oral for 30 Stopped in Fall 2019 due to elevated LFT's Not-Taking FLUoxetine HCl 20 MG TAKE 3 CAPSULES BY MOUTH EVERY DAY Oral for 30 Active [facility] Purelax 17 GM/SCOOP MIX 1 CAPFUL (17GRAMS) INTO A GLASS OF WATER EVERYDAY OR TWICE A DAY FOR CONSTIPATION AND DRINK for 30 Active Pravastatin Sodium 20 MG Oral for 90 Active Dulcolax (colon prep) 5 MG take at 3:00 p.m and 7:00p.m. Orally two tablets twice a day for one day for 1 day 05/11/2023 Active traZODone HCl 50 MG 1 tablet at bedtime as needed Orally Once a day Active FreeStyle Lite Test - USE TO TEST TWICE DAILY DIRECTED In Vitro for 50 Active oxyCODONE HCl 10 MG 1 tablet as needed Orally every 6 hrs Active MiraLax (colon prep) 17 GM/SCOOP 1 238Gm bottle mixed with Gatorade or Crystal Light Orally begin at 5:00 p.m. the day before the procedure for 1 day 05/11/2023 Active MiraLax (colon prep) 17 GM/SCOOP 1 238GM bottle mixed with Gatorade or Crystal Light Orally begin at 5:00 p.m. the day before the procedure for 1 day 03/01/2023 Active Dulcolax (colon prep) 5 MG take at 3:00 p.m and 7:00p.m. Orally two tablets twice a day for one day for 1 day 03/01/2023 Active Cetirizine HCl 10 MG TAKE 1 TABLET BY MOUTH EVERY DAY Oral for 90 Active Meclizine HCl 25 MG 1 tablet as needed Orally Once a day Active Lisinopril 5 MG Oral for 90 Ac tive IMMUNIZATIONS Vaccine Route Administration Date Status Comme nts Influenza Unknown 05/07/2020 Administered Influenza Unknown 02/24/2022 Administered Influenza Unknown 09/08/2018 Refused SOCIAL HISTORY Tobacco Use: Social History Observation Description Date Details (start date - stop date) Former Smoker NA - NA Sex Assigned At : Social History Observation Description Sex Assigned At Unknown Tobacco Use/Smoking Question Answer Notes Patient is a former smoker How long has it been since you last smoked? 6-12 months Alcohol Screen Question Answer Notes Did you have a drink containing alcohol in the p ast year? No Points 0 Interpretation Negative PROBLEMS Problem Type ICD Code Onset Dates Problem Status W/U Status Risk SNOMED Code Notes Problem Elevated liver enzymes (R74.8) Active confirmed 389127090 Problem Liver lesion, right lobe (K76.9) Active confirmed 534544104 Problem Abnormal ultrasound of liver (R93.2) Active confirmed [id number] Problem Fatty liver (K76.0) Active confirmed 739085673 Problem Constipation (K59.00) Active confirmed Constipation (73001508) Problem Elevated liver function tests (R79.89) Active confirmed Elevated liver enzymes level (147154360) Problem Liver fibrosis (K74.00) Active confirmed 84638086 Problem Colon cancer screening (Z12.11) Active confirmed 289129858 Problem Diverticulosis of large intestine without perforation or abscess without bleeding (K57.30) Active confirmed Diverticul ar disease of colon (731087651) PLAN OF TREATMENT Pending Test Test Name Order Date BUN 03/10/2018 CREATININE 03/10/2018 LIVER PROFILE 09/08/2018 LIVER PROFILE 02/24/2023 LIVER PROFILE 06/14/2020 LIVER PROFILE 10/08/2020 LIVER PROFILE 06/29/2020 LIVER PROFILE 03/10/2018 LIVER PROFILE 11/27/2020 LIVER PROFILE 04/29/2021 IRON + IBC (FE) 03/10/2018 FERRITIN 03/10/2018 CBC w DIFF 03/10/2018 CBC w DIFF 02/24/2023 CBC w DIFF 06/29/2020 PROTHROMBIN TIME (PT, INR) 06/29/2020 PROTHROMBIN TIME (PT, INR) 03/10/2018 PARTIAL THROMBOPLASTIN TIME (PTT) 2020 HEPATITIS B, C PROFILE 03/10/2018 [id number] (A1A) 03/10/2018 ALPHA-FETOPROTEIN,TUMOR MARKER ALPHA-FETOPROTEIN,TUMOR MARKER 8 CERULOPLASMIN 03/10/2018 MITOCHONDRIAL AB 03/10/2018 SMOOTH MUSCLE ANTIBODIES 03/10/2018 MRI ABD W&WO CONTRAST 03/10/2018 FLUOR. ANTINUCLEAR AB SCREEN (ULISES) 09/2017 Prothrombin Time INR 06/14/2020 Prothrombin Time INR 02/24/2023 Liver Fibrosis Pnl 02/24/2023 Pathology 05/20/2023 US abdomen comp w elastography 3 US biopsy liver 06/29/2020 Future Test Test Name Order Date COLONOSCOPY 02/24/2023 Insurance Providers Payer Name Payer Address Payer Phone Subscriber Number Group Number Insured Name Patient Relationship to Insured Coverage Start Date Coverage End Date MEDICARE OF [place] [address] [place] [address] [id number] ANDREW COLON, KATIUSKA Self - patient is the insured MEDICAID OF [facility] [address] [place] [phone] [id number] ANDREW COLON, KATIUSKA Self - patient is the insured MEDICAL (GENERAL) HISTORY Medical History History ICD Code Sleep apnea- uses CPAP Denies [place],CVA,Lung disease,renal disease Elevated LFT's--fatty liver- -w/u neg. 2017, neg. MRI except for fatty liver; Summer 2019 with increased LFT's due to a statin--stopped the statin in Fall 2019 but in Jun 2020 increased LFT's persisted. Liver biopsy 07/2020 revealed evidence of fatty liver with only mild inflammation and fibrosis but no cirrhosis. I did place him on ursodiol after his biopsy but he stopped that shortly after that and did not want to continue with it. Carpal tunnel symptoms bilaterally--no s urgery as yet Arthritis NIDDM Hyperlipidemia Surgical History Surgery Date(Month/Year) 2 C-spine disc surgeries Rght shoulder surgery 10/2018 Spine stimulator 03/12/2020
--- OUTSIDE RECORDS SUMMARY | 2024-07-03 15:25 | XMS_ITS ---
Author Organization [facility] Address [address] [place] [address] Care Team Providers Care Job Cost Estimator Name Role Phone Adelina Restrepo Primary Care Provider Unavailab Walt Britt Unavailable [phone] REASON FOR VISIT screening PROBLEMS Problem Type ICD Code Onset Dates Problem Status W/U Status Risk SNOMED Code Notes Problem Diverticulosis of large intestine without perforation or abscess without bleeding (K57.30) Active confirmed Diverticul ar disease of colon (001964320) Encounters Encounter Location Date Provider Diagnosis [facility] [place] [address], [place] [id number] 05/20/2023 Walt Rain Encounter for scre ening colonoscopy Z12.11 ; Colon polyps K63.5 ; Rectal polyp K62.1 ; Diverticulosis of large intestine without perforation or abscess without bleeding K57.30 and Hemorrhoids K64.9 ASSESSMENTS Encounter Date Diagnosis Assessment Notes Treatment Notes Treatment Clinical Notes 05/20/2023 Encounter for screening colonoscopy (ICD-10 - Z12.11) 05/20/2023 Colon polyps (ICD-10 - K63.5) 05/20/2023 Rectal polyp (ICD-10 - K62.1) 05/20/2023 Diverticulosis of large intestine without perforation or abscess without bleeding (ICD-10 - K57.30) 05/20/2023 Hemorrhoids (ICD-10 - K64.9) PLAN OF TREATMENT No Information
== END 2024-07-03 10:39 | disposition home or self-care (01) ==
LOC: HO.LAB 10:38
PROVIDERS: PCP Internal Medicine; Visit Provider Internal Medicine
DX: E11.9 Type 2 diabetes mellitus without complications (principal); E78.5 Hyperlipidemia, unspecified; E55.9 Vitamin D deficiency, unspecified
CPT/HCPCS: 36415; 80053; 80061; 82043; 82306; 82570

== ENCOUNTER → 2024-07-06 12:52 | Outpatient (BNVA) | payer MEDICARE, MEDICAID, SELFPAY | PROVIDERS: PCP Internal Medicine; Visit Provider Internal Medicine | DX: Z00.01 Encounter for general adult medical examination with abnormal findings (principal); F32.0 Major depressive disorder, single episode, mild; M79.641 Pain in right hand; M25.561 Pain in right knee | CPT/HCPCS: 83036; 96127; 99212; 99396 ==

== ENCOUNTER 2024-07-18 11:20 | Outpatient (REF) | payer MEDICARE, MEDICAID, SELFPAY | END 2024-07-18 11:21 | disposition home or self-care (01) | LOC: HO.XRAY 11:20 | PROVIDERS: PCP Internal Medicine; Visit Provider Internal Medicine | DX: M25.561 Pain in right knee (principal); M79.641 Pain in right hand | CPT/HCPCS: 73120; 73560 ==

== ENCOUNTER → 2024-07-18 11:23 | Outpatient (BNV) | payer MEDICARE, MEDICAID, SELFPAY | PROVIDERS: PCP Internal Medicine; Visit Provider Specialist | DX: M25.561 Pain in right knee (principal); M79.641 Pain in right hand | CPT/HCPCS: 73120; 73560 ==

== ENCOUNTER 2024-08-22 11:30 | Outpatient (AMB) | payer MEDICARE, MEDICAID, SELFPAY ==
--- NOTE | 2024-08-22 11:33 | MHC.OFFVIS ---
Vital Signs 08/22/24 11:34 Height 6 ft Weight 238 lb BMI 32.3 Intake Visit Reasons: Right knee pain and giving way Intake Note: Ben is a 54 year old male who presents with complaints of progressively worsening right knee pain and giving way. The patient describes his pain as sharp nature. Most of the pain is along medial aspect of his right knee. The patient states that approximately 1 year ago he twisted his knee when he pain did on the corner of a table. Since that time his symptoms have gotten worse. He has failed the last 6 weeks of conservative treatment which has included a home exercise program, Tylenol, anti-inflammatory medicines and oxycodone. He has tried injections in the past which gave him minimal relief. He has also done physical therapy exercises which aggravated his pain. States that his right knee will give out several times per day. Allergies aspirin [ASA] Allergy (Severe, Verified 08/22/24 11:40) ANAPHYLAXIS gabapentin Allergy (Intermediate, Verified 08/22/24 11:40) sore thoat orphenadrine Allergy (Intermediate, Verified 08/22/24 11:40) restless legs ranitidine Allergy (Intermediate, Verified 08/22/24 11:40) restless leg tramadol Allergy (Intermediate, Verified 08/22/24 11:40) dry mouth, inadequate response Medication List - Last Reconciled 08/22/24 by Vic Aranda MD blood pressure monitor As directed blood sugar diagnostic (FreeStyle Lite Strips) 1 strip miscellaneous BID 30 days blood-glucose meter (FreeStyle Lite Meter kit) As directed cane As directed cetirizine 10 mg PO DAILY 90 days cholecalciferol (vitamin D3) 25 mcg PO DAILY 90 days [cpap 6-16cm h20 ] fluoxetine 60 mg PO DAILY hydroxyzine HCl 25 mg PO BID lancets (FreeStyle Lancets) 28 gauge topical BID 30 days metformin 1,000 mg (2 x 500 mg) PO BID 90 days oxycodone 10 mg PO TID PRN 30 days pregabalin 100 mg PO BID 30 days rosuvastatin 40 mg PO DAILY 90 days semaglutide (Ozempic) 2 mg (0.75 mL) subcut QWEEK 4 weeks sennosides (senna) 8.6 mg PO BEDTIME PRN 30 days trazodone 150 mg PO BEDTIME PRN 90 days vitamin E 400 units PO DAILY PFSH Medical History Allergic rhinitis Hypovitaminosis D Mild depression Fibromyalgia Essential hypertension Spinal cord stimulator status Right knee pain Left knee pain Right shoulder pain Radiculopathy, lumbar region Cervical postlaminectomy syndrome Impingement syndrome of right shoulder Radiculopathy, cervical OSKAR on CPAP Polyarthralgia Pure hypercholesterolemia Insomnia Depression Diabetes mellitus Elevated liver enzymes Knee pain Bilateral carpal tunnel syndrome Low back pain Neck pain Surgical History History of liver biopsy S/P placement of nerve stimulator H/O rotator cuff surgery H/O shoulder surgery History of cervical spinal surgery Family History Father Diabetes Hypertension Mother Diabetes Hypertension Maternal Grandmother Cancer Maternal Grandfather Cancer Paternal Uncle Stroke Brother No problems noted. Sister No problems noted. Sister No problems noted. Son No problems noted. Son No problems noted. Daughter No problems noted. Social History Housing: Apartment Alcohol intake: never Patient Tobacco Use Status: Former Tobacco user Tobacco use type: Cigarette e-Cigarette/Vaping Use: Never Used Second Hand Smoke Exposure: No service: No Current occupational status: disabled Current occupation: rt handed Cognitive needs: Yes Hearing needs: No Vision needs: No Physical Exam Vital Signs: BMI result Body Mass Index 32.3 Const Other: Well-nourished well-developed very friendly male awake alert and oriented x3 in no acute distress Extrem Other: Bilateral lower extremity examination shows good capillary refill, no skin lesions noted, normal sensation light touch Right knee examination shows a minimal effusion, minimal crepitus with range of motion, tenderness along his medial joint line, positive Fide's test, no instability Results Reviewed Results Reviewed: Standing full weight-bearing x-rays of the patient's right knee show mild diffuse joint space narrowing, no acute bony abnormalities Assessment & Plan Assessment & Plan (1) Tear of medial meniscus of right knee: Code(s): S83.241A - Other tear of medial meniscus, current injury, right knee, initial encounter Category: Medical Plan Mr. Noriega Colon right knee mechanical symptoms most likely due to meniscus tear. Thus, I will send the patient for an MRI of his right knee for further evaluation. I will see him back once the MRI is completed to discuss the findings and treatment options. Feel free to call me at any time should questions regarding his orthopedic management arise. Thank you very much for asking me to see this very friendly gentleman. I spent 21 minutes in reviewing the patient's records and imaging studies, seeing the patient and documenting in the medical record. Orders: Orders MR knee RT wo con Today S83.241A - Other tear of medial meniscus, current injury, right knee, initial encounter Coding Level of Care Code New Pt Level 3 (66423) Complex EM visit Add On G2211 Diagnoses Tear of medial meniscus of right knee S83.241A
[2024-08-22 11:34] VITALS: BMI 32.3
--- OUTSIDE RECORDS SUMMARY | 2024-08-22 14:03 | XMS_ITS ---
Author Organization [facility] Address [address] [place] [address] Care Team Providers Care Bounty Trapper Name Role Phone Adelina Restrepo Primary Care Provider Unavailab Walt Britt Unavailable [phone] REASON FOR VISIT screening Encounters Encounter Location Date Provider Diagnosis [facility] [place] [address] [place], [place] [id number] 05/19/2023 Walt Rain Plan Of Treatment No Information Progress Notes * KATIUSKA KOTHARI LDOB:[birth year] (54 yo M)Acc No.[id number]:05/19/2023 COLON WITH MAC Patient:?KATIUSKA KOTHARI Provider:?Walt Rain MD :1970???Age:52 Y???Sex:Male Lennox e:05/19/2023 Address:[address] [place], [place] [id number] Pcp:Adelina Grant Subjective: * Chief Complaints: * ???1. Screening. * Medical History:? Objective: * Vitals:? Assessment: Plan: * Treatment: * * The named appointment provid er may or may not be the originator of this progress note, and it is not deemed complete until electronically signed by the appointment provider. Sign off status: Pending * Provider:?Walt Rain MD Date:? 023 Generated for Goodi ng/Fatiffanieg/eTransmitting on:?08/22/2024 02:03 PM EDT
--- OUTSIDE RECORDS SUMMARY | 2024-08-22 14:03 | XMS_ITS | Clinical Summary ---
Author Organization [facility] Address [address] [place] [address] Care Team Providers Care Rheostat Assembler Name Role Phone Adelina Restrepo MD Primary [...] age to complete this topic Care Teams Rheostat Assembler Relationship Specialty Start Date End Date Adelina Restrepo MD [address] [place] [address] , [address] [facility] D/B/A: [facility] [place] [address] PCP - General Internal Medicine 12/28/17
--- OUTSIDE RECORDS SUMMARY | 2024-08-22 14:04 | XMS_ITS | Clinical Summary ---
Author Organization [facility] Address [address] [place] [address] Phone Care Team Providers Care Call Center Operator Name Role Phone Adelina Grant MD Primary Care Provider [phone] Allergies Active Allergy Reactions Criticality Noted Date Comments Aspirin Itching 08/15/2024 Medications No known medications Encounters Date Type Department Care Team Description 08/15/2024 7:03 PM EDT - 08/15/2024 9:54 PM EDT Emergency [facility] Emergency [address] [place] [address] Lennox Devi MD Cervical strain, acute, initial encounter (Primary Dx); Acute right-sided low back pain without sciatica Discharge Disposition: Home or Self Care from Last 3 Months Medical History Medical History Date Comments Diabetes mellitus (CMS/HCC) Hypertension Social History Tobacco Use Types Packs/Day Years Used Date Smoking Tobacco: Never Assessed Sex and Gender Information Value Date Recorded Sex Assigned at Male 08/15/2024 8:07 PM EDT Legal Sex Male 3:34 PM EST Gender Identity Male 08/15/2024 8:07 PM EDT Sexual Orientation Straight 08/15/2024 8: 07 PM EDT Obstetrics History Last Filed Vital Signs Vital Sign Reading Time Taken Comments Blood Pressure 127/93 08/15/2024 9:52 PM EDT Pulse 87 08/15/2024 9:52 PM EDT Temperature 36.7 ??C (98.1 ??F) 08/15/2024 9:52 PM ED T Respiratory Rate 16 08/15/2024 9:52 PM EDT Oxygen Saturation 96% 08/15/2024 9:52 PM EDT Inhaled Oxygen Concentration - - Weight - - Height - - Body Mass Index - - Plan of Treatment Health Maintenance Due Date Last Done Comments Hepatitis B Vaccines (1 of 3 - 19+ 3-dose series) 1991 Pneumococcal Vaccine: 50+ Years (1 of 1 - PCV) 2022 Zoster Vaccines (1 of 2) 2022 COVID-19 Vaccine (3 - 2023-2 5 season) 2024 09/24/2020, 08/27/2020 Influenza Vaccine (#1) 2024 , 05/10/2020 Cholesterol Screening (Lipid Panel) 08/16/2024 Colorectal Cancer Screening: Colonoscopy 08/16/2024 Depression Screening 08/16/2024 HIV Screening 08/16/2024 Hepatitis C Screening 08/16/2024 Medicare Annual Wellness Visit 08/16/2024 Social Influencers of Health Screening 08/16/2024 DTaP,Tdap,and Td Vaccines (2 - Td or Tdap) 11/12/2024 11/12/2014 HIB Vaccines Aged Out No longer eligi ble based on patient's age to complete this topic HPV Vaccines Aged Out No longer eligi ble based on patient's age to complete this topic Hepatitis A Vaccines Aged Out No long er eligible based on patient's age to complete this topic IPV Vaccines Aged Out No longer eligi ble based on patient's age to complete this topic MMR Vaccines Aged Out No longer eligi ble based on patient's age to complete this topic Meningococcal ACWY Vaccine Aged Out N o longer eligible based on patient's age to complete this topic Meningococcal B Vacine Aged Out No lo nger eligible based on patient's age to complete this topic Pneumococcal Vaccine: Pediatrics (0 to 5 Years) and At-Risk Patients (6 to 64 Years) Aged Out No longer eligible b ased on patient's age to complete this topic RSV Immunization Patients Under 20 months Aged Out No longer eligible b ased on patient's age to complete this topic Varicella Vaccines Aged Out No longer eligible based on patient's age to complete this topic Insurance [place] [id number] [place] - [place] Care Teams Call Center Operator Relationship Specialty Start Date End Date Adelina Grant MD [address] [facility] , [address] [facility] D/B/A: [facility] [place] PCP - General Internal Medicine 12/28/17
--- OUTSIDE RECORDS SUMMARY | 2024-08-22 14:04 | XMS_ITS ---
Author Organization [facility] Address [address] [place] [address] Care Team Providers Care Reporting Consultant Name Role Phone Adelina Restrepo Primary Care Provider Unavailab Walt Britt Unavailable [phone] REASON FOR VISIT anestheisa Encounters Encounter Location Date Provider Diagnosis [facility] [address] [place] [address] 05/17/2023 Walt Rain Plan Of Treatment No Information Progress Notes * KATIUSKA KOTHARI LDOB:[birth year] (52 yo M)Acc No.[id number]:05/17/2023 Patient:?TATY KOTHARIRO Frida :1970???Age:52 Y???Sex:Male Address:[address] [place] [address], [address] * true * Date:? Generated for Daniella dolan/Fausto/eTransmitting on:?08/22/2024 02:03 PM EDT
--- OUTSIDE RECORDS SUMMARY | 2024-08-22 14:04 | XMS_ITS ---
Author Organization [facility] Address [address] [place] [address] Care Team Providers Care Hair Weaver Name Role Phone Adelina Restrepo Primary Care Provider Unavailab Walt Britt Unavailable [phone] REASON FOR VISIT screening Problems Problem Type SNOMED Code ICD Code Onset Dates Problem Status W/U Status Risk Notes Problem Diverticular disease of colon (189548190) Diverticulosis of large intestine without perforation or abscess without bleeding (K57.30) Active confirmed Encounters Encounter Location Date Provider Diagnosis [facility] [place] [address] [place], [place] [id number] 05/20/2023 Walt Rain Encounter for scre ening colonoscopy Z12.11 ; Colon polyps K63.5 ; Rectal polyp K62.1 ; Diverticulosis of large intestine without perforation or abscess without bleeding K57.30 and Hemorrhoids K64.9 Assessments Encounter Date Diagnosis (ICD Code) Assessment Notes Treatment Notes Treatment Clinical Notes Section Notes 05/20/2023 Encounter for screening colonoscopy (ICD-10 - Z12.11) 05/20/2023 Colon polyps (ICD-10 - K63.5) 05/20/2023 Rectal polyp (ICD-10 - K62.1) 05/20/2023 Diverticulosis of large intestine without perforation or abscess without bleeding (ICD-10 - K57.30) 05/20/2023 Hemorrhoids (ICD-10 - K64.9) Plan Of Treatment No Information Progress Notes * TATY KOTHARIRO LDOB:[birth year] (54 yo M)Acc No.[id number]:05/20/2023 COLON WITH MAC Patient:?KATIUSKA KOTHARI L Provider:?Walt Rain MD :1970???Age:52 Y???Sex:Male Lennox e:05/20/2023 Address:[address] [place], [place] [address] Pcp:Adelina Grant Subjective: * Chief Complaints: * ???1. Screening. * Medical History:? Objective: * Vitals:? Assessment: * Assessment: 1.?Encounter for screening c olonoscopy - Z12.11 (Primary)???2.?Colon polyps - K63.5???3.?Rectal polyp - K62.1???4.?Diverticulosis of large intestine without perforation or abscess without bleeding - K57.30???5.?Hemorrhoids - K64.9??? Plan: * Treatment: * Procedure Codes:?41565 LESIO N REMOVAL COLONOSCOPY, Modifiers: PT , 57488 COLONOSCOPY AND BIOPSY, Modifiers: 59 , PT, 0529F INTRVL 3+YRS PTS CLNSCP DOCD, 0528F RCMND FLW-UP 10 YRS DOCD, Modifiers: 1P * * The named appointment provid er may or may not be the originator of this progress note, and it is not deemed complete until electronically signed by the appointment provider. Sign off status: Pending * Provider:?Walt Rain MD Date:? 023 Generated for Daniella dolan/Fausto/eTransmitting on:?08/22/2024 02:03 PM EDT
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
--- OUTSIDE RECORDS SUMMARY | 2024-08-22 14:04 | XMS_ITS | Patient Health Record ---
Author Organization [facility] Address [address] [place] [address] Care Team Providers Care Naphthalene Still Operator Name Role Phone Adelina Restrepo Primary Care Provider Walt Gaytan Unavailable [phone] Allergies Allergen (clinical drug ingredient) Drug/Non Drug Allergy documented on EMR Reaction Allergy Type Onset Date Status Ranitidine HCl Unknown Drug Allergy Ac tive orphenadrine Orphenadrine Citrate Unknown Drug Allergy Active gabapentin Gabapentin Unknown Drug Allergy Activ e Aspir-81 Unknown Drug Allergy Active tramadol Tramadol HCl Unknown Drug Allergy Acti ve Reason For Referral No Information Medications Medication SIG (Take, Route, Frequency, Duration) Notes [...] 5 MG Oral for 90 Ac tive Immunizations Vaccine Route Administration Date Status Comme nts Influenza Unknown 05/07/2020 Administered Influenza Unknown 02/24/2022 Administered Influenza Unknown 09/08/2018 Refused Social History Tobacco Use: Social History Observation Description Date Details (start date - stop date) Former Smoker NA - NA Tobacco Use/Smoking Question Answer Notes Patient is a former smoker How long has it been since you last smoked? 6-12 months Alcohol Screen Question Answer Notes Did you have a drink containing alcohol in the p ast year? No Points 0 Interpretation Negative Section Notes: Nonsmoker since 2016; no sig alcohol Nonsmoker since 2016; no sig alcohol Nonsmoker since 2016; no sig alcohol Nonsmoker since 2016; no sig alcohol Nonsmoker since 2016; no sig alcohol Nonsmoker since 2016; no sig alcohol Nonsmoker since 2016; no sig alcohol Problems Problem Type SNOMED Code ICD Code Onset Dates Problem Status W/U Status Risk Notes Problem 287317077 Colon cancer screening (Z12.11) Active confirmed Problem Constipation (81309235) Constipation (K59.00) Active confirmed Problem Diverticular disease of colon (796573963) Diverticulosis of large intestine without perforation or abscess without bleeding (K57.30) Active confirmed Problem Elevated liver enzymes level (981392643) Elevated liver function tests (R79.89) Active confirmed Problem 057972366 Elevated liver enzymes (R74.8) Active confirmed Problem 551474146 Fatty liver (K76.0) Active confirmed Problem 48636536411736127 Abnormal ultrasound of liver (R93.2) Active confirmed Problem 932088512 Liver lesion, right lobe (K76.9) Active confirmed Problem 36495592 Liver fibrosis (K74.00) Active confirmed Plan Of Treatment Pending Test Test Name Order Date BUN 03/10/2018 CREATININE 03/10/2018 LIVER PROFILE 11/27/2020 LIVER PROFILE 04/29/2021 LIVER PROFILE 09/08/2018 LIVER PROFILE 02/24/2023 LIVER PROFILE 03/10/2018 LIVER PROFILE 06/14/2020 LIVER PROFILE 06/29/2020 LIVER PROFILE 10/08/2020 IRON + IBC (FE) 03/10/2018 FERRITIN 03/10/2018 CBC w DIFF 06/29/2020 CBC w DIFF 03/10/2018 CBC w DIFF 02/24/2023 PROTHROMBIN TIME (PT, INR) 06/29/2020 PROTHROMBIN TIME (PT, INR) 03/10/2018 PARTIAL THROMBOPLASTIN TIME (PTT) 2020 HEPATITIS B, C PROFILE 03/10/2018 [id number] (A1A) 03/10/2018 ALPHA-FETOPROTEIN,TUMOR MARKER 3 ALPHA-FETOPROTEIN,TUMOR MARKER 8 CERULOPLASMIN 03/10/2018 MITOCHONDRIAL AB 03/10/2018 SMOOTH MUSCLE ANTIBODIES 03/10/2018 MRI ABD W&WO CONTRAST 03/10/2018 FLUOR. ANTINUCLEAR AB SCREEN (ULISES) 09/2017 Prothrombin Time INR 02/24/2023 Prothrombin Time INR 06/14/2020 Liver Fibrosis Pnl 02/24/2023 Pathology 05/20/2023 US abdomen comp w elastography 3 US biopsy liver 06/29/2020 Future Test Test Name Order Date COLONOSCOPY 02/24/2023 Insurance Providers Payer Name Payer Address Payer Phone Subscriber Number Group Number Insured Name Patient Relationship to Insured Coverage Start Date Coverage End Date MEDICARE OF [employer] [address] [place] [address] [id number] ANDREW COLON, KATIUSKA Self - patient is the insured MEDICAID OF [employer] [address] [place] [phone] [id number] KATIUSKA KOTHARI Self - patient is the insured Medical (General) History Medical History History ICD Code Sleep apnea- uses CPAP Denies [place],CVA,Lung disease,renal disease Elevated LFT's--fatty liver- -w/u neg. [...]
== END 2024-08-22 11:46 | disposition home or self-care (01) ==
LOC: HO.HOS 11:31
PROVIDERS: PCP Internal Medicine; Visit Provider Orthopaedic Surgery
DX: S83.241A Other tear of medial meniscus, current injury, right knee, initial encounter (principal)
CPT/HCPCS: 99203

== ENCOUNTER → 2024-08-22 11:30 | Outpatient (BNVA) | payer MEDICARE, MEDICAID, SELFPAY | PROVIDERS: PCP Internal Medicine; Visit Provider Orthopaedic Surgery | DX: S83.241A Other tear of medial meniscus, current injury, right knee, initial encounter (principal); X58.XXXA Exposure to other specified factors, initial encounter; Y93.9 Activity, unspecified; Y92.9 Unspecified place or not applicable; Y99.9 Unspecified external cause status | CPT/HCPCS: 99202 ==

== ENCOUNTER 2024-09-15 16:15 | Outpatient (REF) | payer MEDICARE, MEDICAID, SELFPAY ==
--- NOTE | ~2024-09-15 | MR_ITS ---
EXAMINATION: MRI RIGHT KNEE WITHOUT CONTRAST HISTORY: S83.241A - Other tear of medial meniscus, current injury, right knee COMPARISON: Correlation is made with plain films of the right knee dated 07/24/2020. TECHNIQUE: Coronal T1 and fat-suppressed proton density, sagittal proton density and fat-suppressed proton density, and axial fat suppressed T2 weighted MR images of the right knee were obtained. FINDINGS: Bone marrow: Bone marrow signal intensity is normal. Joint effusion: There is no significant joint effusion. Andrade's cyst: There is no Andrade's cyst. Articular cartilage: Intact Muscles/soft tissues: The visualized muscles demonstrate normal signal intensity. Anterior cruciate ligament: Intact Posterior cruciate ligament: Intact Medial collateral ligament: Intact Lateral collateral ligament: Intact Medial meniscus: Intact Lateral meniscus: Intact Flexor mechanism: The popliteus, gastrocnemius, and hamstring tendons are intact. Quadriceps tendon: There is mild increased signal intensity within the distal quadriceps tendinosis insertion on the patella consistent with tendinosis. Patellar tendon: There is mild increased signal intensity at the origin of the patellar tendon consistent with tendinosis. Patellar retinacula: Intact MR/MR knee RT wo con IMPRESSION: Findings consistent with mild tendinosis involving the distal quadriceps and proximal patellar tendons. Otherwise unremarkable MRI of the right knee. Electronically signed by: Walt Fabian MD 09/18/2024 07:34 AM EDT
--- OUTSIDE RECORDS SUMMARY | 2024-09-15 16:17 | XMS_ITS ---
Author Organization [facility] Address [address] [place] [address] Care Team Providers Care Production Internship Name Role Phone Adelina Restrepo Primary Care Provider Unavailab Walt Britt Unavailable [phone] REASON FOR VISIT screening Encounters Encounter Location Date Provider Diagnosis [facility] [place] Outpatient [address] [place], [place] [phone] 05/19/2023 Walt Rain Plan Of Treatment No Information Progress Notes * KATIUSKA KOTHARI LDOB:[birth year] (54 yo M)Acc No.[id number]:05/19/2023 COLON WITH MAC Patient:?KATIUSKA KOTHARI Provider:?Walt Rain MD :1970???Age:52 Y???Sex:Male Lennox e:05/19/2023 Address:[address] [place], [place] [id number] Pcp:Adelina Grant Subjective: * Chief Complaints: * [...] MD Date:? 023 Generated for Goodi ng/Fatiffanieg/eTransmitting on:?09/15/2024 04:17 PM EDT
--- OUTSIDE RECORDS SUMMARY | 2024-09-15 16:17 | XMS_ITS | Clinical Summary ---
Author Organization [facility] Address [address] [place] [address] Phone Care Team Providers Care Prosthodontist/Educator Name Role Phone Adelina Grant MD Primary Care Provider [phone] Allergies Active Allergy Reactions Criticality Noted Date Comments Aspirin Itching 08/15/2024 Medications No known medications Encounters Date Type Department Care Team Description 08/15/2024 7:03 PM EDT - 08/15/2024 9:54 PM EDT Emergency [facility] Emergency [address] [place] [address] Lennox Devi MD Cervical strain, acute, initial encounter (Primary Dx); Acute right-sided low back pain without sciatica Discharge Disposition: Home or Self Care from Last 3 Months Medical History Medical History Date Comments Diabetes mellitus (CMS/HCC V24, CMS/[facility] V28) Hypertension Social History Tobacco Use Types Packs/Day [...] - 2023-2 5 season) 2024 09/24/2020, 08/27/2020 Cholesterol Screening (Lipid Panel) 08/16/2024 Colorectal Cancer Screening: Colonoscopy 08/16/2024 Depression Screening 08/16/2024 HIV Screening 08/16/2024 Hepatitis C Screening 08/16/2024 Medicare Annual Wellness Visit 08/16/2024 Social Influencers of Health Screening 08/16/2024 DTaP,Tdap,and Td Vaccines (2 - Td or Tdap) 11/12/2024 11/12/2014 Influenza Vaccine (Season Ended) 2025 04/17/2021, 05/10/2020 HIB Vaccines Aged Out No longer eligi [...] age to complete this topic Meningococcal B Vaccine Aged Out No l onger eligible based on patient's age to complete [...] MEDICARE [place] - [place] GENER[place] - [place] Care Teams Prosthodontist/Educator Relationship Specialty Start Date End Date Adelina Grant MD [address] [facility] , [address] [facility] D/B/A: [facility] [place] PCP - General Internal Medicine 12/28/17
--- OUTSIDE RECORDS SUMMARY | 2024-09-15 16:17 | XMS_ITS ---
Author Organization [facility] Address [address] [place] [address] Care Team Providers Care Account Executive Software Sales Name Role Phone Adelina Restrepo Primary Care Provider Unavailab Walt Britt Unavailable [phone] REASON FOR VISIT anestheisa Encounters Encounter Location Date Provider Diagnosis [facility] [address] [place] [address] 05/17/2023 Walt Rain Plan Of Treatment No Information Progress Notes * KATIUSKA KOTHARI LDOB:[birth year] (52 yo M)Acc No.[id number]:05/17/2023 Patient:?TATY KOTHARIRO Frida :1970???Age:52 Y???Sex:Male Address:[address] [place] [address], [address] * true * Date:? Generated for Daniella dolan/Fausto/eTransmitting on:?09/15/2024 04:17 PM EDT
--- OUTSIDE RECORDS SUMMARY | 2024-09-15 16:17 | XMS_ITS ---
Author Organization [facility] Address [address] [place] [address] Care Team Providers Care Sole Buffer Name Role Phone Adelina Restrepo Primary Care Provider Unavailab Walt Britt Unavailable [phone] REASON FOR VISIT screening Problems Problem Type SNOMED Code ICD Code Onset Dates Problem Status W/U Status Risk Notes Problem Diverticular disease of colon (255086647) Diverticulosis of large intestine without perforation or abscess without bleeding (K57.30) Active confirmed Encounters Encounter Location Date Provider Diagnosis [facility] [place] Outpatient [address] [place], [place] [phone] 05/20/2023 Walt Rain Encounter for scre ening [...] * KATIUSKA KOTHARI LDOB:[birth year] (54 yo M)Acc No.[id number]:05/20/2023 COLON WITH MAC Patient:?KATIUSKA KOTHARI L Provider:?Walt Rain MD :1970???Age:52 Y???Sex:Male Lennox e:05/20/2023 Address:[address] [place], [place] [phone] Pcp:Adelina Grant Subjective: * Chief Complaints: * ???1. Screening. * Medical History:? Objective: * Vitals:? Assessment: * Assessment: 1.?Encounter for screening c olonoscopy - Z12.11 (Primary)???2.?Colon polyps - K63.5???3.?Rectal polyp - K62.1???4.?Diverticulosis of large intestine without perforation or abscess without bleeding - K57.30???5.?Hemorrhoids - K64.9??? Plan: * Treatment: * Procedure Codes:?91556 LESIO N REMOVAL COLONOSCOPY, Modifiers: [place] , [address] COLONOSCOPY AND BIOPSY, Modifiers: 59 , PT, [...] MD Date:? 023 Generated for Daniella dolan/Fausto/eTransmitting on:?09/15/2024 04:17 PM EDT
--- OUTSIDE RECORDS SUMMARY | 2024-09-15 16:17 | XMS_ITS | Clinical Summary ---
Author Organization [facility] Address [address] [place] [address] Care Team Providers Care Biomedical Instrument Technician Name Role Phone Adelina Restrepo MD Primary [...] age to complete this topic Care Teams Biomedical Instrument Technician Relationship Specialty Start Date End Date Adelina Restrepo MD [address] [place] [address] , [address] [facility] D/B/A: [facility] [place] [address] PCP - General Internal Medicine 12/28/17
--- OUTSIDE RECORDS SUMMARY | 2024-09-15 16:17 | XMS_ITS | Patient Health Record ---
Author Organization [facility] Address [address] [place] [address] Care Team Providers Care Desk Pen Set Assembler Name Role Phone Adelina Restrepo Primary Care Provider UnavailWalt Vasquez Unavailable [phone] Allergies Allergen (clinical drug ingredient) Drug/Non Drug Allergy documented on EMR Reaction Allergy Type Onset Date Status tramadol Tramadol HCl Unknown Drug Allergy Acti ve Ranitidine HCl Unknown Drug Allergy Ac tive orphenadrine Orphenadrine Citrate Unknown Drug Allergy Active gabapentin Gabapentin Unknown Drug Allergy Activ e Aspir-81 Unknown Drug Allergy Active Reason For Referral No Information Medications Medication [...] Problem Status W/U Status Risk Notes Problem 226177780 Colon cancer screening (Z12.11) Active confirmed Problem Constipation (26697004) Constipation (K59.00) Active confirmed Problem Diverticular disease of colon (233757658) Diverticulosis of large intestine without perforation or abscess without bleeding (K57.30) Active confirmed Problem Elevated liver enzymes level (954558925) Elevated liver function tests (R79.89) Active confirmed Problem 177789782 Elevated liver enzymes (R74.8) Active confirmed Problem 426993773 Fatty liver (K76.0) Active confirmed Problem 13432903321034915 Abnormal ultrasound of liver (R93.2) Active confirmed Problem 379631989 Liver lesion, right lobe (K76.9) Active confirmed Problem 61942421 Liver fibrosis (K74.00) Active confirmed Plan Of Treatment Pending Test Test Name Order Date BUN 03/10/2018 CREATININE 03/10/2018 LIVER PROFILE 06/29/2020 LIVER PROFILE 10/08/2020 LIVER PROFILE 11/27/2020 LIVER PROFILE 04/29/2021 LIVER PROFILE 09/08/2018 LIVER PROFILE 02/24/2023 LIVER PROFILE 03/10/2018 LIVER PROFILE 06/14/2020 IRON + IBC (FE) 03/10/2018 FERRITIN 03/10/2018 CBC w DIFF 02/24/2023 CBC w DIFF 06/29/2020 CBC w DIFF 03/10/2018 PROTHROMBIN TIME (PT, INR) 06/29/2020 PROTHROMBIN TIME (PT, INR) 03/10/2018 PARTIAL THROMBOPLASTIN TIME (PTT) 2020 HEPATITIS B, C PROFILE 03/10/2018 [id number] (A1A) 03/10/2018 ALPHA-FETOPROTEIN,TUMOR MARKER 3 ALPHA-FETOPROTEIN,TUMOR MARKER 8 CERULOPLASMIN 03/10/2018 MITOCHONDRIAL AB 03/10/2018 SMOOTH MUSCLE ANTIBODIES 03/10/2018 MRI ABD W&WO CONTRAST 03/10/2018 FLUOR. ANTINUCLEAR AB SCREEN (ULISES) 09/2017 Prothrombin Time INR 06/14/2020 Prothrombin Time INR 02/24/2023 Liver Fibrosis Pnl 02/24/2023 Pathology 05/20/2023 US abdomen comp w elastography US biopsy liver 06/29/2020 Future Test Test Name Order Date COLONOSCOPY 02/24/2023 Insurance Providers Payer Name Payer Address Payer Phone Subscriber Number Group Number Insured Name Patient Relationship to Insured Coverage Start Date Coverage End Date MEDICARE OF [place] [address] [place] [address] [id number] ANDREW COLON, KATIUSKA Self - patient is the insured MEDICAID OF [employer] [address] [place] [phone] [id number] KATIUSKA KOTHARI Self - patient is the insured Medical (General) History Medical History History ICD Code Sleep apnea- uses CPAP Denies IA,CVA,Lung disease,renal disease Elevated LFT's--fatty liver- -w/u neg. [...]
== END 2024-09-15 16:16 | disposition home or self-care (01) ==
LOC: HO.MRI 16:15
PROVIDERS: PCP Internal Medicine; Visit Provider Orthopaedic Surgery
DX: S83.241A Other tear of medial meniscus, current injury, right knee, initial encounter (principal)
CPT/HCPCS: 73721

== ENCOUNTER → 2024-09-15 16:15 | Outpatient (BNV) | payer MEDICARE, MEDICAID, SELFPAY | PROVIDERS: PCP Internal Medicine; Visit Provider Radiology Diagnostic Radiology | DX: S83.241A Other tear of medial meniscus, current injury, right knee, initial encounter (principal) | CPT/HCPCS: 73721 ==

== ENCOUNTER 2024-09-21 12:34 | Outpatient (AMB) | payer MEDICARE, MEDICAID, SELFPAY ==
--- NOTE | 2024-09-21 12:36 | A.OFFVIS_ITS ---
Vital Signs 09/21/24 12:38 Height 6 ft Weight 238 lb BMI 32.3 Intake Visit Reasons: OV- Right knee MRI review Intake Note: Ben is a 54 year old male who presents with complaints of right knee pain. He describes his pain as sharp in nature. His pain has gotten worse over the last 2 years in spite of continued non operative treatments. He has failed the last 3 months of conservative treatment which has included Tylenol, anti-inflammatory medicines, a home exercise program and physical therapy exercises. The patient states that his right knee pain is interfering with his activities of daily living and his ability to sleep well through the night. He does walk with a cane because of his pain. He states that his right knee will give out at times. He wishes to hold off on surgery if at all possible. He has had cortisone injections in the past which gave him minimal relief. Allergies aspirin [ASA] Allergy (Severe, Verified 09/21/24 12:38) ANAPHYLAXIS gabapentin Allergy (Intermediate, Verified 09/21/24 12:38) sore thoat orphenadrine Allergy (Intermediate, Verified 09/21/24 12:38) restless legs ranitidine Allergy (Intermediate, Verified 09/21/24 12:38) restless leg tramadol Allergy (Intermediate, Verified 09/21/24 12:38) dry mouth, inadequate response [facility] Medical History Allergic rhinitis Hypovitaminosis D Mild depression Fibromyalgia Essential hypertension Spinal cord stimulator status Right knee pain Left knee pain Right shoulder pain Radiculopathy, lumbar region Cervical postlaminectomy syndrome Impingement syndrome of right shoulder Radiculopathy, cervical OSKAR on CPAP Polyarthralgia Pure hypercholesterolemia Insomnia Depression Diabetes mellitus Elevated liver enzymes Knee pain Bilateral carpal tunnel syndrome Low back pain Neck pain Surgical History History of liver biopsy S/P placement of nerve stimulator H/O rotator cuff surgery H/O shoulder surgery History of cervical spinal surgery Family History Father Diabetes Hypertension Mother Diabetes Hypertension Maternal Grandmother Cancer Maternal Grandfather Cancer Paternal Uncle Stroke Brother No problems noted. Sister No problems noted. Sister No problems noted. Son No problems noted. Son No problems noted. Daughter No problems noted. Social History Housing: Apartment Alcohol intake: never Patient Tobacco Use Status: Former Tobacco user Tobacco use type: Cigarette e-Cigarette/Vaping Use: Never Used Second Hand Smoke Exposure: No service: No Current occupational status: disabled Current occupation: rt handed Cognitive needs: Yes Hearing needs: No Vision needs: No Physical Exam Vital Signs: BMI result Body Mass Index 32.3 Const Other: Well-nourished well-developed very friendly male awake alert and oriented x3 in no acute distress Extrem Other: Bilateral lower extremity examination shows good capillary refill, no skin lesions noted, normal sensation light touch Right knee examination shows a minimal effusion, mild crepitus with range of motion, pain with range of motion, no instability Results Reviewed Results Reviewed: MRI of the patient's right knee shows mild diffuse degenerative changes, no evidence of ligamentous or meniscus tearing Assessment & Plan Assessment & Plan (1) Osteoarthritis of right knee: Code(s): M17.11 - Unilateral primary osteoarthritis, right knee Category: Medical Plan Mr. Hari Santos presents with right knee pain and instability due to osteoarthritis. I had the patient fitted with a knee brace to help with his symptoms of instability. I do feel that the knee brace is a medical necessity to help prevent future falls. I will also see whether or not the patient's insurance company will cover a viscosupplementation injection, such as Durolane. I will see him back once the injection is available. Feel free to call me at any time should questions regarding his orthopedic management arise. I spent 21 minutes in reviewing the patient's records and imaging studies, seeing the patient and documenting in the medical record. Coding Level of Care Code Est Pt Level 3 (44235) Complex EM visit Add On G2211 Diagnoses Osteoarthritis of right knee M17.11
[2024-09-21 12:38] VITALS: BMI 32.3
--- OUTSIDE RECORDS SUMMARY | 2024-09-21 15:23 | XMS_ITS ---
Author Organization [facility] Address [address] [place] [address] Care Team Providers Care Hr Clerk Name Role Phone Adelina Restrepo Primary Care Provider Unavailab Walt Britt Unavailable [phone] REASON FOR VISIT anestheisa Encounters Encounter Location Date Provider Diagnosis [facility] [address] [place] [address] 05/17/2023 Walt Rain Plan Of Treatment No Information Progress Notes * KATIUSKA KOTHARI LDOB:[birth year] (52 yo M)Acc No.[id number]:05/17/2023 Patient:?TATY KOTHARIRO Frida :1970???Age:52 Y???Sex:Male Address:[address] [place] [address], [address] * true * Date:? Generated for Daniella dolan/Fausto/eTransmitting on:?09/21/2024 03:23 PM EDT
--- OUTSIDE RECORDS SUMMARY | 2024-09-21 15:23 | XMS_ITS | Clinical Summary ---
Author Organization [facility] Address [address] [place] [address] Care Team Providers Care Lean Six Sigma Senior Specialist Name Role Phone Adelina Restrepo MD [...] age to complete this topic Care Teams Lean Six Sigma Senior Specialist Relationship Specialty Start Date End Date Adelina Restrepo MD [address] [place] [address] , [address] [facility] D/B/A: [facility] [place] [address] PCP - General Internal Medicine 12/28/17
--- OUTSIDE RECORDS SUMMARY | 2024-09-21 15:23 | XMS_ITS ---
Author Organization [facility] Address [address] [place] [address] Care Team Providers Care Medical Bill Processor Name Role Phone Adelina Restrepo Primary Care Provider Unavailab Walt Britt Unavailable [phone] REASON FOR VISIT screening Encounters Encounter Location Date Provider Diagnosis [facility] Outpatient [address] [place], [place] [phone] 05/19/2023 Walt Rain Plan Of Treatment No Information Progress Notes * KATIUSKA KOTHARI LDOB:[birth year] (54 yo M)Acc No.[id number]:05/19/2023 COLON WITH MAC Patient:?KATIUSKA KOTHARI Provider:?Walt Rain MD :1970???Age:52 Y???Sex:Male Lennox e:05/19/2023 Address:[address] [place] [address] [place], [place] [phone] Pcp:Adelina Grant Subjective: * Chief Complaints: * [...] MD Date:? 023 Generated for Goodi ng/Fatiffanieg/eTransmitting on:?09/21/2024 03:22 PM EDT
--- OUTSIDE RECORDS SUMMARY | 2024-09-21 15:23 | XMS_ITS | Patient Health Record ---
Author Organization [facility] Address [address] [place] [address] Care Team Providers Care Mold Closer Helper Name Role Phone Adelina Restrepo Primary Care Provider UnavailWalt Vasquez Unavailable [phone] Allergies Allergen (clinical drug ingredient) Drug/Non Drug [...] Problem Status W/U Status Risk Notes Problem 874536129 Colon cancer screening (Z12.11) Active confirmed Problem Constipation (03645948) Constipation (K59.00) Active confirmed Problem Diverticular disease of colon (120166110) Diverticulosis of large intestine without perforation or abscess without bleeding (K57.30) Active confirmed Problem Elevated liver enzymes level (285587100) Elevated liver function tests (R79.89) Active confirmed Problem 667794714 Elevated liver enzymes (R74.8) Active confirmed Problem 938625998 Fatty liver (K76.0) Active confirmed Problem 34377261388300945 Abnormal ultrasound of liver (R93.2) Active confirmed Problem 272759156 Liver lesion, right lobe (K76.9) Active confirmed Problem 40875238 Liver fibrosis (K74.00) Active confirmed Plan Of Treatment Pending Test Test Name Order Date BUN 03/10/2018 CREATININE 03/10/2018 LIVER PROFILE 02/24/2023 LIVER PROFILE 03/10/2018 LIVER PROFILE 06/14/2020 LIVER PROFILE 06/29/2020 LIVER PROFILE 10/08/2020 LIVER PROFILE 11/27/2020 LIVER PROFILE 04/29/2021 LIVER PROFILE 09/08/2018 IRON + IBC (FE) 03/10/2018 FERRITIN 03/10/2018 CBC w DIFF 02/24/2023 CBC w DIFF 06/29/2020 CBC w DIFF 03/10/2018 PROTHROMBIN TIME (PT, INR) 03/10/2018 PROTHROMBIN TIME (PT, INR) 06/29/2020 PARTIAL THROMBOPLASTIN TIME (PTT) 2020 HEPATITIS B, C PROFILE 03/10/2018 [id number] (A1A) 03/10/2018 ALPHA-FETOPROTEIN,TUMOR MARKER 3 ALPHA-FETOPROTEIN,TUMOR MARKER [...] AJ [address] [place] [address] [id number] ANDREW COLON, KATIUSKA Self - patient is the insured MEDICAID OF [employer] [address] [place] [id number] KATIUSKA KOTHARI Self - patient is the [...]
--- OUTSIDE RECORDS SUMMARY | 2024-09-21 15:24 | XMS_ITS ---
Author Organization [facility] Address [address] [place] [address] Care Team Providers Care Battery Container Inspector Name Role Phone Adelina Restrepo Primary Care Provider Unavailab Walt Britt Unavailable [phone] REASON FOR VISIT screening Problems Problem Type SNOMED Code ICD Code Onset Dates Problem Status W/U Status Risk Notes Problem Diverticular disease of colon (219875229) Diverticulosis of large intestine without perforation or abscess without bleeding (K57.30) Active confirmed Encounters Encounter Location Date Provider Diagnosis [facility] Outpatient [address] [place], [place] [phone] 05/20/2023 Walt Rain Encounter for scre ening [...] * KATIUSKA KOTHARI LDOB:[birth year] (54 yo M)Acc No.[id number]:05/20/2023 COLON WITH MAC Patient:?KATIUSKA KOTHARI L Provider:?Walt Rain MD :1970???Age:52 Y???Sex:Male Lennox e:05/20/2023 Address:[address] [place], [place] [phone] Pcp:Adelina Grant Subjective: * Chief Complaints: * ???1. Screening. * Medical History:? Objective: * Vitals:? Assessment: * Assessment: 1.?Encounter for screening c olonoscopy - Z12.11 (Primary)???2.?Colon polyps - K63.5???3.?Rectal polyp - K62.1???4.?Diverticulosis of large intestine without perforation or abscess without bleeding - K57.30???5.?Hemorrhoids - K64.9??? Plan: * Treatment: * Procedure Codes:?04819 LESIO N REMOVAL COLONOSCOPY, Modifiers: [place] , [address] COLONOSCOPY AND BIOPSY, Modifiers: 59 , PT, [...] MD Date:? 023 Generated for Daniella dolan/Fausto/eTransmitting on:?09/21/2024 03:23 PM EDT
--- OUTSIDE RECORDS SUMMARY | 2024-09-21 15:24 | XMS_ITS | Clinical Summary ---
Author Organization [facility] Address [address] [place] [address] Phone Care Team Providers Care Pocket Cutter Name Role Phone Adelina Grant MD Primary Care Provider [phone] Allergies Active Allergy Reactions Criticality Noted Date Comments Aspirin Itching 08/15/2024 Medications No known medications Encounters Date Type Department Care Team Description 08/15/2024 7:03 PM EDT - 08/15/2024 9:54 PM EDT Emergency [facility] Emergency [address] [place] [address] Lennox Devi MD Cervical strain, acute, initial encounter (Primary Dx); Acute right-sided low back pain without sciatica Discharge Disposition: Home or Self Care from Last 3 Months Medical History Medical History Date Comments Diabetes mellitus (CMS/HCC V24, CMS/[facility] V28) Hypertension Social History Tobacco Use Types [...] GENERIC MEDICARE MEDICAID - [place] Care Teams Pocket Cutter Relationship Specialty Start Date End Date Adelina Grant MD [address] [facility] , [address] [facility] D/B/A: [facility] [place] PCP - General Internal Medicine 12/28/17
== END 2024-09-21 12:56 | disposition home or self-care (01) ==
LOC: HO.HOS 12:35
PROVIDERS: PCP Internal Medicine; Visit Provider Orthopaedic Surgery
DX: M17.11 Unilateral primary osteoarthritis, right knee (principal)
CPT/HCPCS: 99213; G2211

== ENCOUNTER → 2024-09-21 12:34 | Outpatient (BNVA) | payer MEDICARE, MEDICAID, SELFPAY | PROVIDERS: PCP Internal Medicine; Visit Provider Orthopaedic Surgery | DX: M17.11 Unilateral primary osteoarthritis, right knee (principal) | CPT/HCPCS: 99212 ==

== ENCOUNTER 2024-10-25 11:33 | Outpatient (AMB) | payer MEDICARE, MEDICAID, SELFPAY ==
[2024-10-25 11:51] VITALS: BMI 32.3
--- NOTE | 2024-10-25 11:51 | MHC.OFFVIS ---
Vital Signs 10/25/24 11:51 Height 6 ft Weight 238 lb BMI 32.3 Intake Visit Reasons: INJ- RT knee Euflexxa #1 Intake Note: Ben is a 54 year old male who presents today for his first dose of the Euflexxa gel injection on the right knee. Allergies aspirin [ASA] Allergy (Severe, Verified 10/25/24 11:51) ANAPHYLAXIS gabapentin Allergy (Intermediate, Verified 10/25/24 11:51) sore thoat orphenadrine Allergy (Intermediate, Verified 10/25/24 11:51) restless legs ranitidine Allergy (Intermediate, Verified 10/25/24 11:51) restless leg tramadol Allergy (Intermediate, Verified 10/25/24 11:51) dry mouth, inadequate response Medication List - Last Reconciled 10/25/24 by Vic Aranda MD blood pressure monitor As directed blood sugar diagnostic (FreeStyle Lite Strips) 1 strip miscellaneous BID 30 days blood-glucose meter (FreeStyle Lite Meter kit) As directed cane As directed cetirizine 10 mg PO DAILY 90 days cholecalciferol (vitamin D3) 25 mcg PO DAILY 90 days [cpap 6-16cm h20 ] fluoxetine 60 mg PO DAILY hydroxyzine HCl 25 mg PO BID lancets (FreeStyle Lancets) 28 gauge topical BID 30 days metformin 1,000 mg (2 x 500 mg) PO BID 90 days oxycodone 10 mg PO TID PRN 30 days pregabalin 100 mg PO BID 30 days rosuvastatin 40 mg PO DAILY 90 days semaglutide (Ozempic) 2 mg (0.75 mL) subcut QWEEK 4 weeks sennosides (senna) 8.6 mg PO BEDTIME PRN 30 days trazodone 150 mg PO BEDTIME PRN 90 days vitamin E 400 units PO DAILY PFSH Medical History Allergic rhinitis Hypovitaminosis D Mild depression Fibromyalgia Essential hypertension Spinal cord stimulator status Right knee pain Left knee pain Right shoulder pain Radiculopathy, lumbar region Cervical postlaminectomy syndrome Impingement syndrome of right shoulder Radiculopathy, cervical OSKAR on CPAP Polyarthralgia Pure hypercholesterolemia Insomnia Depression Diabetes mellitus Elevated liver enzymes Knee pain Bilateral carpal tunnel syndrome Low back pain Neck pain Surgical History History of liver biopsy S/P placement of nerve stimulator H/O rotator cuff surgery H/O shoulder surgery History of cervical spinal surgery Family History Father Diabetes Hypertension Mother Diabetes Hypertension Maternal Grandmother Cancer Maternal Grandfather Cancer Paternal Uncle Stroke Brother No problems noted. Sister No problems noted. Sister No problems noted. Son No problems noted. Son No problems noted. Daughter No problems noted. Social History Housing: Apartment Alcohol intake: never Patient Tobacco Use Status: Former Tobacco user Tobacco use type: Cigarette e-Cigarette/Vaping Use: Never Used Second Hand Smoke Exposure: No service: No Current occupational status: disabled Current occupation: rt handed Cognitive needs: Yes Hearing needs: No Vision needs: No Coding
--- NOTE | 2024-10-25 12:21 | MHC.OFFVIS ---
Vital Signs 10/25/24 11:51 Height 6 ft Weight 238 lb BMI 32.3 Intake Visit Reasons: INJ- RT knee Euflexxa #1 Intake Note: Ben is a 54-year-old male who presents with right knee pain. He describes his pain as sharp in nature. He has had cortisone injections in the past which gave him minimal relief. He has not had a viscosupplementation injection. He states that his right knee pain is interfering with his activities of daily living and his ability to sleep well through the night. He has failed the last 3 months of conservative treatment. Allergies aspirin [ASA] Allergy (Severe, Verified 10/25/24 11:51) ANAPHYLAXIS gabapentin Allergy (Intermediate, Verified 10/25/24 11:51) sore thoat orphenadrine Allergy (Intermediate, Verified 10/25/24 11:51) restless legs ranitidine Allergy (Intermediate, Verified 10/25/24 11:51) restless leg tramadol Allergy (Intermediate, Verified 10/25/24 11:51) dry mouth, inadequate response Medication List - Last Reconciled 10/25/24 by Vic Aranda MD blood pressure monitor As directed blood sugar diagnostic (FreeStyle Lite Strips) 1 strip miscellaneous BID 30 days blood-glucose meter (FreeStyle Lite Meter kit) As directed cane As directed cetirizine 10 mg PO DAILY 90 days cholecalciferol (vitamin D3) 25 mcg PO DAILY 90 days [cpap 6-16cm h20 ] fluoxetine 60 mg PO DAILY hydroxyzine HCl 25 mg PO BID lancets (FreeStyle Lancets) 28 gauge topical BID 30 days metformin 1,000 mg (2 x 500 mg) PO BID 90 days oxycodone 10 mg PO TID PRN 30 days pregabalin 100 mg PO BID 30 days rosuvastatin 40 mg PO DAILY 90 days semaglutide (Ozempic) 2 mg (0.75 mL) subcut QWEEK 4 weeks sennosides (senna) 8.6 mg PO BEDTIME PRN 30 days trazodone 150 mg PO BEDTIME PRN 90 days vitamin E 400 units PO DAILY [facility] Medical History Allergic rhinitis Hypovitaminosis D Mild depression Fibromyalgia Essential hypertension Spinal cord stimulator status Right knee pain Left knee pain Right shoulder pain Radiculopathy, lumbar region Cervical postlaminectomy syndrome Impingement syndrome of right shoulder Radiculopathy, cervical OSKAR on CPAP Polyarthralgia Pure hypercholesterolemia Insomnia Depression Diabetes mellitus Elevated liver enzymes Knee pain Bilateral carpal tunnel syndrome Low back pain Neck pain Surgical History History of liver biopsy S/P placement of nerve stimulator H/O rotator cuff surgery H/O shoulder surgery History of cervical spinal surgery Family History Father Diabetes Hypertension Mother Diabetes Hypertension Maternal Grandmother Cancer Maternal Grandfather Cancer Paternal Uncle Stroke Brother No problems noted. Sister No problems noted. Sister No problems noted. Son No problems noted. Son No problems noted. Daughter No problems noted. Social History Housing: Apartment Alcohol intake: never Patient Tobacco Use Status: Former Tobacco user Tobacco use type: Cigarette e-Cigarette/Vaping Use: Never Used Second Hand Smoke Exposure: No service: No Current occupational status: disabled Current occupation: rt handed Cognitive needs: Yes Hearing needs: No Vision needs: No Physical Exam Vital Signs: BMI result Body Mass Index 32.3 Const Other: Well-nourished well-developed very friendly male awake alert and oriented x3 in no acute distress Extrem Other: Bilateral lower extremity examination shows good capillary refill, no skin lesions noted, normal sensation light touch Right knee examination shows a minimal effusion, palpable crepitus with range of motion, pain with range of motion, no instability Office Procedures AMB Joint Injection/Aspiration Joint Injection/Aspiration Primary Site: right knee Prep: site was prepped using aseptic technique Injected: 20 mg of (Euflexxa viscosupplementation) and 1% plain lidocaine Procedure: The patient tolerated the procedure well Coding 97233 - Large joint Procedure code (CPT) selection complete Results Reviewed Results Reviewed: X-rays of the patient's right knee taken previously show joint space narrowing, subchondral sclerosis, no acute bony abnormalities Assessment & Plan Assessment & Plan (1) Osteoarthritis of right knee: Code(s): M17.11 - Unilateral primary osteoarthritis, right knee Category: Medical Plan Mr. Hari Santos presents with right knee pain due to osteoarthritis. The risks and benefits of a series of Euflexxa viscosupplementation injections were discussed at length with the patient. The patient wishes to proceed. Tolerated the 1st Euflexxa injection well. He will continue with his home exercise program. He will follow up next week as scheduled. Feel free to call me at any time should questions regarding his orthopedic management arise. I spent 20 minutes in reviewing the patient's records and imaging studies, seeing the patient and documenting in the medical record. Orders: Orders AMB Joint Injection/Aspiration Today M17.11 - Unilateral primary osteoarthritis, right knee Coding Level of Care Code Est Pt Level 3 (89873) Complex EM visit Add On G2211 Diagnoses Osteoarthritis of right knee M17.11 CPT Codes Coding - 39928 Large joint: 29283 - Large joint ([id number])
--- OUTSIDE RECORDS SUMMARY | 2024-10-25 12:53 | XMS_ITS ---
Author Organization [facility] Address [address] [place] [address] Care Team Providers Care Detective Bowling Alley Name Role Phone Adelina Restrepo Primary Care Provider Unavailab Walt Britt Unavailable [phone] REASON FOR VISIT screening Problems Problem Type SNOMED Code ICD Code Onset Dates Problem Status W/U Status Risk Notes Problem Diverticulosis o f large intestine without perforation or abscess without bleeding (K57.30) Active confirmed Encounters Encounter Location Date Provider Diagnosis [facility] Outpatient [address] [place], [place] [phone] 05/20/2023 Walt Rain Encounter for scre ening [...] * KATIUSKA KOTHARI LDOB:[birth year] (54 yo M)Acc No.[id number]:05/20/2023 COLON WITH MAC Patient:?KATIUSKA KOTHARI Provider:?Walt Rani MD :1970???Age:52 Y???Sex:Male Lennox e:05/20/2023 Address:[address] [place] [address], [facility] Pcp:Adelina Grant Subjective: * Chief Complaints: * ???1. Screening. * Medical History:? Objective: * Vitals:? Assessment: * Assessment: 1.?Encounter for screening c olonoscopy - Z12.11 (Primary)???2.?Colon polyps - K63.5???3.?Rectal polyp - K62.1???4.?Diverticulosis of large intestine without perforation or abscess without bleeding - K57.30???5.?Hemorrhoids - K64.9??? Plan: * Treatment: * Procedure Codes:?50351 LESIO N REMOVAL COLONOSCOPY, Modifiers: PT , 42318 COLONOSCOPY AND BIOPSY, Modifiers: 59 , PT, [...] Rain MD Date:? 023 Generated for Daniella dolan/Fausto/Yuniitting on:?10/25/2024 12:53 PM EDT
--- OUTSIDE RECORDS SUMMARY | 2024-10-25 12:53 | XMS_ITS | Clinical Summary ---
Author Organization [facility] Address [address] [place] [address] Care Team Providers Care Pillowcase Cutter Name Role Phone Adelina Restrepo MD Primary [...] age to complete this topic Care Teams Pillowcase Cutter Relationship Specialty Start Date End Date Adelina Restrepo MD [address] [place] [address] , [address] [facility] Physician [facility] D/B/A: [facility] [place] [id number] PCP - General Internal Medicine 12/28/17
--- OUTSIDE RECORDS SUMMARY | 2024-10-25 12:53 | XMS_ITS | Patient Health Record ---
Author Organization [facility] Address [address] [place] [address] Care Team Providers Care Lead Java Software Engineer Name Role Phone Adelina Restrepo Primary Care Provider Walt Gaytan Unavailable [phone] Allergies Allergen (clinical drug ingredient) Drug/Non Drug [...] Problem Status W/U Status Risk Notes Problem 179157687 Colon cancer screening (Z12.11) Active confirmed Problem Constipation (68519748) Constipation (K59.00) Active confirmed Problem Diverticular disease of colon (206189039) Diverticulosis of large intestine without perforation or abscess without bleeding (K57.30) Active confirmed Problem Elevated liver enzymes level (270976500) Elevated liver function tests (R79.89) Active confirmed Problem 339254669 Elevated liver enzymes (R74.8) Active confirmed Problem 713786627 Fatty liver (K76.0) Active confirmed Problem [id number] Abnormal ultrasound of liver (R93.2) Active confirmed Problem 724503429 Liver lesion, right lobe (K76.9) Active confirmed Problem 32922073 Liver fibrosis (K74.00) Active confirmed Plan Of [...] (PTT) 2020 HEPATITIS B, C PROFILE 03/10/2018 [id number] (A1A) 03/10/2018 ALPHA-FETOPROTEIN,TUMOR MARKER 3 ALPHA-FETOPROTEIN,TUMOR MARKER [...] AJ [address] [place] [address] [id number] ANDREW COLON, KATIUSKA Self - patient is the insured MEDICAID OF [employer] [address] [place] [phone] [id number] KATIUSKA KOTHARI Self - patient is the insured Medical (General) History Medical History History ICD Code Sleep apnea- uses CPAP Denies VT,CVA,Lung disease,renal disease Elevated LFT's--fatty liver- -w/u neg. [...]
--- OUTSIDE RECORDS SUMMARY | 2024-10-25 12:53 | XMS_ITS ---
Author Organization [facility] Address [address] [place] [address] Care Team Providers Care Body Shop Mechanic Name Role Phone Adelina Restrepo Primary Care Provider Unavailab Walt Britt Unavailable [phone] REASON FOR VISIT anestheisa Encounters Encounter Location Date Provider Diagnosis [facility] [address] [place] [address] 05/17/2023 Walt Rain Plan Of Treatment No Information Progress Notes * KATIUSKA KOTHARI LDOB:[birth year] (52 yo M)Acc No.[id number]:05/17/2023 Patient:?TATY KOTHARIRO Frida :1970???Age:52 Y???Sex:Male Address:[address] [place] [address], [address] * true * Date:? Generated for Daniella dolan/Fausto/eTransmitting on:?10/25/2024 12:52 PM EDT
--- OUTSIDE RECORDS SUMMARY | 2024-10-25 12:53 | XMS_ITS | Clinical Summary ---
Author Organization [facility] Address [address] [place] [address] Phone Care Team Providers Care Ear Nose And Throat Specialist Name Role Phone Adelina Grant MD Primary Care Provider [phone] Allergies Active Allergy Reactions Criticality Noted Date Comments Aspirin Itching 08/15/2024 Medications No known medications Encounters Date Type Department Care Team Description 08/15/2024 7:03 PM EDT - 08/15/2024 9:54 PM EDT Emergency [facility] Emergency [address] [place] [address] Lennox Devi MD Cervical strain, acute, initial encounter (Primary Dx); Acute right-sided low back pain without sciatica Discharge Disposition: Home or Self Care from Last 3 Months Medical History Medical History Date Comments Diabetes mellitus (CMS/HCC V24, CMS/FORMERLY [facility] V28) Hypertension Social History Tobacco Use Types [...] GENERIC MEDICARE MEDICAID - [place] Care Teams Ear Nose And Throat Specialist Relationship Specialty Start Date End Date Adelina Grant MD [address] [facility] , [address] [facility] Physician Associ D/B/A: [facility] [place] PCP - General Internal Medicine 12/28/17
--- OUTSIDE RECORDS SUMMARY | 2024-10-25 12:53 | XMS_ITS ---
Author Organization [facility] Address [address] [place] [address] Care Team Providers Care Materials Management Manager Name Role Phone Adelina Restrepo Primary Care Provider Unavailab Walt Britt Unavailable [phone] REASON FOR VISIT screening Encounters Encounter Location Date Provider Diagnosis [facility] Outpatient [address] [place], [place] [phone] 05/19/2023 Walt Rain Plan Of Treatment No Information Progress Notes * KATIUSKA KOTHARI LDOB:[birth year] (54 yo M)Acc No.[id number]:05/19/2023 COLON WITH MAC Patient:?KATIUSKA KOTHARI Provider:?Walt Rain MD :1970???Age:52 Y???Sex:Male Lennox e:05/19/2023 Address:[address] [place], [place] [address] Pcp:Adelina Grant Subjective: * Chief Complaints: * [...] MD Date:? 023 Generated for Goodi ng/Fatiffanieg/eTransmitting on:?10/25/2024 12:52 PM EDT
== END 2024-10-25 12:20 | disposition home or self-care (01) ==
LOC: HO.HOS 11:35
PROVIDERS: PCP Internal Medicine; Visit Provider Orthopaedic Surgery
DX: M17.11 Unilateral primary osteoarthritis, right knee (principal)
CPT/HCPCS: 20610; 99213

== ENCOUNTER → 2024-10-25 11:33 | Outpatient (BNVA) | payer MEDICARE, MEDICAID, SELFPAY | PROVIDERS: PCP Internal Medicine; Visit Provider Orthopaedic Surgery | DX: M17.11 Unilateral primary osteoarthritis, right knee (principal) | CPT/HCPCS: 20610; 99212; J2003; J7323 ==

== ENCOUNTER 2024-11-01 10:18 | Outpatient (REF) | payer MEDICARE, MEDICAID, SELFPAY ==
--- OUTSIDE RECORDS SUMMARY | 2024-11-01 11:16 | XMS_ITS ---
Author Organization [facility] Address [address] [place] [address] Care Team Providers Care Service Desk Agent Name Role Phone Adelina Restrepo Primary Care Provider Unavailab Walt Britt Unavailable [phone] REASON FOR VISIT screening Encounters Encounter Location Date Provider Diagnosis [facility] Outpatient [address] [place], [place] [phone] 05/19/2023 Walt Rain Plan Of Treatment No Information Progress Notes * KATIUSKA KOTHARI LDOB:[birth year] (54 yo M)Acc No.[id number]:05/19/2023 COLON WITH MAC Patient:?KATIUSKA KOTHARI Provider:?Walt Rain MD :1970???Age:52 Y???Sex:Male Lennox e:05/19/2023 Address:[address] [place], [place] [id number] Pcp:Adelina Grant Subjective: * Chief Complaints: * [...] MD Date:? 023 Generated for Goodi ng/Fatiffanieg/eTransmitting on:?11/01/2024 11:16 AM EDT
[2024-11-01 13:05] LABS: Alanine Aminotransferase 35 U/L (0-40); Albumin Level 4.5 g/dL (3.5-5.0); Alkaline Phosphatase 88 U/L (39-117); Anion Gap 11 (12-20); Aspartate Amino Transferase 36 U/L (5-37); Bilirubin Total 0.5 mg/dL (0.0-1.0); Blood Urea Nitrogen 14 mg/dL (9-16); Calcium 9.4 mg/dL (8.4-10.2); Carbon Dioxide 26 mmol/L (22-29); Chloride 104 mmol/L (96-108); Cholesterol 128 mg/dL (<200); Estimated Glomerular Filt Rate 59; Glucose Fasting 97 mg/dL (60-99); HDL Cholesterol 34 mg/dL (>40); LDL Cholesterol Calculated 61 mg/dL (<100); Potassium 4.5 mmol/L (3.3-5.1); Sodium 136 mmol/L (135-145); Total Protein 7.5 g/dL (6.5-8.0); Triglycerides 169 mg/dL (<150)
[2024-11-01 13:09] LABS: Vitamin D 25-OH Total 34.5 ng/mL (>30)
[2024-11-01 13:10] LABS: Creatinine Urine 174.26 mg/dL; Microalbumin Urine < 5.0 mg/L
== END 2024-11-01 10:19 | disposition home or self-care (01) ==
LOC: HO.LAB 10:18
PROVIDERS: PCP Internal Medicine; Visit Provider Internal Medicine
DX: M17.11 Unilateral primary osteoarthritis, right knee (principal); E11.9 Type 2 diabetes mellitus without complications; E78.5 Hyperlipidemia, unspecified; E55.9 Vitamin D deficiency, unspecified
CPT/HCPCS: 20610; 36415; 80053; 80061; 82043; 82306; 82570; J2003; J7323

== ENCOUNTER 2024-11-01 11:18 | Outpatient (AMB) | payer MEDICARE, MEDICAID, SELFPAY ==
[2024-11-01 11:24] VITALS: BMI 32.3
--- NOTE | 2024-11-01 11:24 | A.OFFVIS_ITS ---
Vital Signs 11/01/24 11:24 Height 6 ft Weight 238 lb BMI 32.3 Intake Visit Reasons: INJ- RT knee Euflexxa #2 Intake Note: Ben is a 54 year old male who presents for follow-up of his right knee pain. He states that he got mild relief from the 1st Euflexxa injection. He continues with his home exercise program. Allergies aspirin [ASA] Allergy (Severe, Verified 11/01/24 11:24) ANAPHYLAXIS gabapentin Allergy (Intermediate, Verified 11/01/24 11:24) sore thoat orphenadrine Allergy (Intermediate, Verified 11/01/24 11:24) restless legs ranitidine Allergy (Intermediate, Verified 11/01/24 11:24) restless leg tramadol Allergy (Intermediate, Verified 11/01/24 11:24) dry mouth, inadequate response Medication List - Last Reconciled 11/01/24 by Vic Aranda MD blood pressure monitor As directed blood sugar diagnostic (FreeStyle Lite Strips) 1 strip miscellaneous BID 30 days blood-glucose meter (FreeStyle Lite Meter kit) As directed cane As directed cetirizine 10 mg PO DAILY 90 days cholecalciferol (vitamin D3) 25 mcg PO DAILY 90 days [cpap 6-16cm h20 ] fluoxetine 60 mg PO DAILY hydroxyzine HCl 25 mg PO BID lancets (FreeStyle Lancets) 28 gauge topical BID 30 days metformin 1,000 mg (2 x 500 mg) PO BID 90 days oxycodone 10 mg PO TID PRN 30 days pregabalin 100 mg PO BID 30 days rosuvastatin 40 mg PO DAILY 90 days semaglutide (Ozempic) 2 mg (0.75 mL) subcut QWEEK 4 weeks sennosides (senna) 8.6 mg PO BEDTIME PRN 30 days trazodone 150 mg PO BEDTIME PRN 90 days vitamin E 400 units PO DAILY [facility] Medical History Allergic rhinitis Hypovitaminosis D Mild depression Fibromyalgia Essential hypertension Spinal cord stimulator status Right knee pain Left knee pain Right shoulder pain Radiculopathy, lumbar region Cervical postlaminectomy syndrome Impingement syndrome of right shoulder Radiculopathy, cervical OSKAR on CPAP Polyarthralgia Pure hypercholesterolemia Insomnia Depression Diabetes mellitus Elevated liver enzymes Knee pain Bilateral carpal tunnel syndrome Low back pain Neck pain Surgical History History of liver biopsy S/P placement of nerve stimulator H/O rotator cuff surgery H/O shoulder surgery History of cervical spinal surgery Family History Father Diabetes Hypertension Mother Diabetes Hypertension Maternal Grandmother Cancer Maternal Grandfather Cancer Paternal Uncle Stroke Brother No problems noted. Sister No problems noted. Sister No problems noted. Son No problems noted. Son No problems noted. Daughter No problems noted. Social History Housing: Apartment Alcohol intake: never Patient Tobacco Use Status: Former Tobacco user Tobacco use type: Cigarette e-Cigarette/Vaping Use: Never Used Second Hand Smoke Exposure: No service: No Current occupational status: disabled Current occupation: rt handed Cognitive needs: Yes Hearing needs: No Vision needs: No Physical Exam Vital Signs: BMI result Body Mass Index 32.3 Extrem Other: Right knee examination shows a minimal effusion, palpable crepitus with range of motion, pain with range of motion, no instability Office Procedures AMB Joint Injection/Aspiration Joint Injection/Aspiration Primary Site: right knee Prep: site was prepped using aseptic technique Injected: 20 mg of (Euflexxa viscosupplementation) and 1% plain lidocaine Procedure: The patient tolerated the procedure well Coding 76323 - Large joint Procedure code (CPT) selection complete Results Reviewed Results Reviewed: X-rays of the patient's right knee taken previously show joint space narrowing, subchondral sclerosis, no acute bony abnormalities Assessment & Plan Assessment & Plan (1) Osteoarthritis of right knee: Code(s): M17.11 - Unilateral primary osteoarthritis, right knee Category: Medical Plan Mr. Hari Santos presents with right knee pain due to osteoarthritis. The risks and benefits of a 2nd Euflexxa injection were discussed at length with the patient. The patient wished to proceed. He tolerated the injection well. He will continue with his home exercise program. He will follow up next week as scheduled. Feel free to call me at any time should questions regarding his orthopedic management arise. Orders: Orders AMB Joint Injection/Aspiration Today M17.11 - Unilateral primary ost eoarthritis, right knee Coding Level of Care Code Procedure Only Diagnoses Osteoarthritis of right knee M17.11 CPT Codes Coding - 14715 Large joint: 30846 - Large joint ([id number])
== END 2024-11-01 11:36 | disposition home or self-care (01) ==
LOC: HO.HOS 11:19
PROVIDERS: PCP Internal Medicine; Visit Provider Orthopaedic Surgery
DX: M17.11 Unilateral primary osteoarthritis, right knee (principal)
CPT/HCPCS: 20610

== ENCOUNTER 2024-11-07 13:35 | Outpatient (AMB) | payer MEDICARE, MEDICAID, SELFPAY ==
[2024-11-07 13:54] VITALS: BP 126/80; BMI 29.7
--- NOTE | 2024-11-07 13:54 | A.OFFPC_ITS ---
Vital Signs 11/07/24 13:54 Height 6 ft Weight 219 lb BMI 29.7 BP 126/80 Blood Pressure Location Lt brachial Position Sitting Intake Visit Reasons: dm Intake Note: Patient here for a follow up DM Turf Manager Required: No Accompanied by: Self / Same As Patient Allergies aspirin [ASA] Allergy (Severe, Verified 11/07/24 14:03) ANAPHYLAXIS gabapentin Allergy (Intermediate, Verified 11/07/24 14:03) sore thoat orphenadrine Allergy (Intermediate, Verified 11/07/24 14:03) restless legs ranitidine Allergy (Intermediate, Verified 11/07/24 14:03) restless leg tramadol Allergy (Intermediate, Verified 11/07/24 14:03) dry mouth, inadequate response Medication List - Last Reconciled 11/07/24 by Adelina Grant MD blood pressure monitor As directed blood sugar diagnostic (FreeStyle Lite Strips) 1 strip miscellaneous BID 30 days blood-glucose meter (FreeStyle Lite Meter kit) As directed cane As directed cetirizine 10 mg PO DAILY 90 days cholecalciferol (vitamin D3) 25 mcg PO DAILY 90 days [cpap 6-16cm h20 ] fluoxetine 60 mg PO DAILY hydroxyzine HCl 25 mg PO BID lancets (FreeStyle Lancets) 28 gauge topical BID 30 days metformin 1,000 mg (2 x 500 mg) PO BID 90 days oxycodone 10 mg PO TID PRN 30 days pregabalin 100 mg PO BID 30 days rosuvastatin 40 mg PO DAILY 90 days semaglutide (Ozempic) 2 mg (0.75 mL) subcut QWEEK 4 weeks sennosides (senna) 8.6 mg PO BEDTIME PRN 30 days trazodone 150 mg PO BEDTIME PRN 90 days vitamin E 400 units PO DAILY Tobacco use date assessed: 07/06/24 Dental Screening Dental Screen Date: 07/06/24 HPI HPI Comments History of Present Illness Details The patient is a 54-year-old male presenting with a follow-up for chronic conditions management. He is managing type 2 diabetes, essential hypertension, and hyperlipidemia effectively with noticeable weight loss from 238 to 219 pounds, indicating progress from previous obesity. His management strategy includes regular medication use, such as metformin and rosuvastatin, alongside lifestyle changes supported by the use of Ozempic, which has also aided in reducing his A1c from 6.5% to 5.8%. His cholesterol has improved significantly, as evidenced by his LDL drop from 136 mg/dL to 61 mg/dL. The patient's medication history includes adverse reactions to aspirin, gabapentin, orphenadrine, ranitidine, and tramadol. Thus, his current management includes alternative drug therapies. Recently, he sustained right knee tendinosis, identified via MRI, and is undergoing a novel therapy involving FDA- approved gel injections. His chronic pain is managed with a regimen that includes oxycodone, and an ongoing script for fluoxetine addresses depressive symptoms. His current routine includes hydroxyzine for anxiety control and Lyrica administered for neuropathy management. He reports improvement in symptoms and well-being, including stab ilized metrics from blood work such as a recent GFR of 59. Monitoring will continue to ensure sustained improvement. [facility] Medical History Allergic rhinitis Hypovitaminosis D Mild depression Fibromyalgia Essential hypertension Spinal cord stimulator status Right knee pain Left knee pain Right shoulder pain Radiculopathy, lumbar region Cervical postlaminectomy syndrome Impingement syndrome of right shoulder Radiculopathy, cervical OSKAR on CPAP Polyarthralgia Pure hypercholesterolemia Insomnia Depression Diabetes mellitus Elevated liver enzymes Knee pain Bilateral carpal tunnel syndrome Low back pain Neck pain Surgical History History of liver biopsy S/P placement of nerve stimulator H/O rotator cuff surgery H/O shoulder surgery History of cervical spinal surgery Family History Father Diabetes Hypertension Mother Diabetes Hypertension Maternal Grandmother Cancer Maternal Grandfather Cancer Paternal Uncle Stroke Brother No problems noted. Sister No problems noted. Sister No problems noted. Son No problems noted. Son No problems noted. Daughter No problems noted. Social History Housing: Apartment Alcohol intake: never Patient Tobacco Use Status: Former Tobacco user Tobacco use type: Cigarette e-Cigarette/Vaping Use: Never Used Second Hand Smoke Exposure: No service: No Current occupational status: disabled Current occupation: rt handed Cognitive needs: Yes Hearing needs: No Vision needs: No Questionnaire Thrive Questionnaire Date Thrive assessed: 07/06/24 I am a: Patient What is your living situation today?: I have a steady place to live Within the past 12 months, did the food you bought not last and you didn't have the money to get more?: Never true Within the past 12 months, did you worry whether your food would run out before you got money to buy more?: Sometimes True Do you have trouble paying for medicines?: No Do you have trouble getting transportation to medical appointments?: No Do you have trouble paying your heating and electricity bill?: No Do you have trouble taking care of your child, family member or friend?: Yes Do you have trouble with day-to-day activities such as bathing, preparing meals, shopping, managing finances, etc.?: Yes Are you currently unemployed and looking for a job?: I choose not to answer this question Are you interested in more education?: No Please select the resources that you would like help with: None Currently or been in a relationship where the following occur: I choose not to answer THRIVE Score: 1 DAVID-7 AMB Questionnaire DAVID-7 Date DAVID - 7 assessed: 07/06/24 Source: Developed by Drs. Walt Arnold, Latanya Miller, Juan Carvalho and colleagues, with an educational jenna from [employer]. Review of Systems Const All systems reviewed & are unremarkable except as noted in HPI and below Card Denies chest pain at rest, Denies chest pain with activity, Denies edema, Denies irregular heart rhythm, Denies claudication, Denies dyspnea, Denies dyspnea on exertion, Denies orthopnea, Denies paroxysmal nocturnal dyspnea and Denies slow heart rate Resp Denies cough, Denies dyspnea and Denies dyspnea on exertion GI Denies abdominal pain, Denies change in bowel habits, Denies excessive flatus, Denies nausea and Denies vomiting Denies urinary hesitancy, Denies urinary incontinence and Denies urinary urgency Musc Denies abnormal gait, Denies atrophy, Denies deformity and Denies limited range of motion Skin/Breast Denies bleeding lesions, Denies changing lesions and Denies rash Neuro Denies abnormal gait, Denies behavioral changes and Denies lack of coordination Psych Denies behavioral changes Physical exam (Primary Care) Vital Signs: Last Vital Signs BP 126/80 11/07/24 13:54 BMI result Body Mass Index 29.7 Tobacco/Smoking Status: Tobacco use Status Tobacco use date assessed 07/06/24 11/07/24 14:01 Patient Tobacco Use Status Former Tobacco user 11/07/24 14:01 Tobacco use type Cigarette 11/07/24 14:01 e-Cigarette/Vaping Use Never Used 11/07/24 14:01 Thrive Assessment: Date of Thrive Assessment Date Thrive assessed 07/06/24 11/07/24 14:01 Currently or been in a relationship where the following occur: I choose not to answer Const Limitations: ambulation with cane Resp Effort & Inspection: normal respiratory effort Auscultation: clear to auscultation bilaterally Cardio Jugular venous distension: no JVD Rate: regular rate Rhythm: regular rhythm Heart sounds: S1 normal heart sound present and S2 normal heart sound present Extrem General: Yes full ROM Results AMB Hemoglobin A1c AMB Hemoglobin A1c 5.8 % Last Edit by GLORIA Thurston on 11/07/24 14:1 3 Coding Level of Care Code Est Pt Level 4 (56877) Complex EM visit Add On G2211 Diagnoses Type 2 diabetes mellitus without complication, without long-term current use of insulin E11.9 Diabetes mellitus complication status: without complication Diabetes mellitus long term care social worker insulin use: without correction use Diabetes mellitus type: type 2 Pure hypercholesterolemia E78.00 Radiculopathy, cervical M54.12 Radiculopathy, lumbar region M54.16 Essential hypertension I10 Mild depression F32.0 Time Spent (min) 22 Assessment & Plan Assessment & Plan (1) Diabetes mellitus: Comment: NIDDM Code(s): E11.9 - Type 2 diabetes mellitus without complications Category: Medical Qualifiers: Diabetes mellitus complication status: without complication Diabetes mellitus long term care social worker insulin use: without long term care social worker use Diabetes mellitus type: type 2 Qualified Code(s): E11.9 - Type 2 diabetes mellitus without complications (2) Pure hypercholesterolemia: Code(s): E78.00 - Pure hypercholesterolemia, unspecified Category: Medical (3) Radiculopathy, cervical: Code(s): M54.12 - Radiculopathy, cervical region Category: Medical (4) Radiculopathy, lumbar region: Code(s): M54.16 - Radiculopathy, lumbar region Category: Medical (5) Essential hypertension: Code(s): I10 - Essential (primary) hypertension Category: Medical (6) Mild depression: Code(s): F32.0 - Major depressive disorder, single episode, mild Category: Medical Plan The patient will maintain his current therapies for type 2 diabetes, hypertens ion, and hyperlipidemia, including metformin, rosuvastatin, and the use of Ozempic, while being guided by lifestyle modifications for weight management. Neuropathy treatment will continue with Pregabalin and pain management with Oxycodone, avoiding medications causing adverse reactions. The patient will complete the gel injection series for right knee tendinosis to enhance function, and follow-up mental health care remains critical, managed by fluoxetine. Subsequent evaluation will arise at the next scheduled visit in four months. Patient was informed and verbally consented to the use of an ambient scribe for clinic note documentation during this visit. During today's visit, I confirmed the patient's diagnosis of type 2 diabetes, hypertension, hyperlipidemia, and their management plans. We discussed current therapies, particularly the effectiveness of Ozempic in improving A1c and promoting weight loss. I reviewed the gel injection treatment for knee tendinosis, ensuring the patient's understanding that the final session is impending. We considered potential adverse reactions to alternative medications, reinforcing the need to avoid contraindicated prescriptions. The patient expr essed improved well-being, adhering to mental health medications with fluoxetine and hydroxyzine. The discussed timelines for follow-up laboratory assessments and adherence to prescribed regimens were outlined for future visits. Orders: Orders Comprehensive Jackson. Panel Fast 4 Months E11.9 - Type 2 diabetes mellitus without complications AMB Hemoglobin A1c Today E11.9 - Type 2 diabetes mellitus without complications Lipid Panel 4 Months E78.5 - Hyperlipidemia, unspecified Microalbumin, Random (w Creat) 4 Months R80.9 - Proteinuria, unspecified Vitamin D 25-OH Total 4 Months E55.9 - Vitamin D deficiency, unspecified Patient Instructions: - Continue taking your prescribed medications as directed. - Maintain engagement with Ozempic and adhere to lifestyle changes for weight management. - Complete the last session of your gel injection series for knee tendinosis. - Monitor blood sugar levels regularly and report significant changes. - Attend your follow-up appointment scheduled in four months. - Contact the office urgently if you experience any severe side effects or reactions to medication.
--- OUTSIDE RECORDS SUMMARY | 2024-11-07 15:16 | XMS_ITS ---
Author Organization [facility] Address [address] [place] [address] Care Team Providers Care Placement Manager Name Role Phone Adelina Restrepo Primary Care Provider Unavailab Walt Britt Unavailable [phone] REASON FOR VISIT screening Encounters Encounter Location Date Provider Diagnosis [facility] Outpatient [address] [place], [place] [phone] 05/19/2023 Walt Rain Plan Of Treatment No Information Progress Notes * KATIUSKA KOTHARI LDOB:[birth year] (54 yo M)Acc No.[id number]:05/19/2023 COLON WITH MAC Patient:?KATIUSKA KOTHARI Provider:?Walt Rain MD :1970???Age:52 Y???Sex:Male Lennox e:05/19/2023 Address:[address] [place], [place] [id number] Pcp:Adelina Grant Subjective: * Chief Complaints: * [...] MD Date:? 023 Generated for Goodi ng/Fatiffanieg/eTransmitting on:?11/07/2024 03:15 PM EDT
== END 2024-11-07 14:14 | disposition home or self-care (01) ==
LOC: HO.HMCH 13:36
PROVIDERS: PCP Internal Medicine; Visit Provider Internal Medicine
DX: E11.9 Type 2 diabetes mellitus without complications (principal); E78.00 Pure hypercholesterolemia, unspecified; M54.12 Radiculopathy, cervical region; M54.16 Radiculopathy, lumbar region; I10 Essential (primary) hypertension; F32.0 Major depressive disorder, single episode, mild

== ENCOUNTER → 2024-11-07 13:35 | Outpatient (BNVA) | payer MEDICARE, MEDICAID, SELFPAY | PROVIDERS: PCP Internal Medicine; Visit Provider Internal Medicine | DX: E11.9 Type 2 diabetes mellitus without complications (principal); E78.00 Pure hypercholesterolemia, unspecified; M54.12 Radiculopathy, cervical region; I10 Essential (primary) hypertension; F32.0 Major depressive disorder, single episode, mild | CPT/HCPCS: 83036; 99212 ==

== ENCOUNTER 2024-11-08 11:20 | Outpatient (AMB) | payer MEDICARE, MEDICAID, SELFPAY ==
[2024-11-08 11:30] VITALS: BMI 29.7
--- NOTE | 2024-11-08 11:30 | A.OFFVIS_ITS ---
Vital Signs 11/08/24 11:30 Height 6 ft Weight 219 lb BMI 29.7 Intake Visit Reasons: INJ- RT knee Euflexxa #3 Intake Note: Ben is a 54 year old male who presents today for their third dose of right knee Euflexxa injections. He states that he has gotten mild relief from the 1st 2 injections. He continues with his home exercise program. Allergies aspirin [ASA] Allergy (Severe, Verified 11/08/24 11:36) ANAPHYLAXIS gabapentin Allergy (Intermediate, Verified 11/08/24 11:36) sore thoat orphenadrine Allergy (Intermediate, Verified 11/08/24 11:36) restless legs ranitidine Allergy (Intermediate, Verified 11/08/24 11:36) restless leg tramadol Allergy (Intermediate, Verified 11/08/24 11:36) dry mouth, inadequate response Medication List - Last Reconciled 11/08/24 by Vic Aranda MD blood pressure monitor As directed blood sugar diagnostic (FreeStyle Lite Strips) 1 strip miscellaneous BID 30 days blood-glucose meter (FreeStyle Lite Meter kit) As directed cane As directed cetirizine 10 mg PO DAILY 90 days cholecalciferol (vitamin D3) 25 mcg PO DAILY 90 days [cpap 6-16cm h20 ] fluoxetine 60 mg PO DAILY hydroxyzine HCl 25 mg PO BID lancets (FreeStyle Lancets) 28 gauge topical BID 30 days metformin 1,000 mg (2 x 500 mg) PO BID 90 days oxycodone 10 mg PO TID PRN 30 days pregabalin 100 mg PO BID 30 days rosuvastatin 40 mg PO DAILY 90 days semaglutide (Ozempic) 2 mg (0.75 mL) subcut QWEEK 4 weeks sennosides (senna) 8.6 mg PO BEDTIME PRN 30 days trazodone 150 mg PO BEDTIME PRN 90 days vitamin E 400 units PO DAILY [facility] Medical History Allergic rhinitis Hypovitaminosis D Mild depression Fibromyalgia Essential hypertension Spinal cord stimulator status Right knee pain Left knee pain Right shoulder pain Radiculopathy, lumbar region Cervical postlaminectomy syndrome Impingement syndrome of right shoulder Radiculopathy, cervical OSKAR on CPAP Polyarthralgia Pure hypercholesterolemia Insomnia Depression Diabetes mellitus Elevated liver enzymes Knee pain Bilateral carpal tunnel syndrome Low back pain Neck pain Surgical History History of liver biopsy S/P placement of nerve stimulator H/O rotator cuff surgery H/O shoulder surgery History of cervical spinal surgery Family History Father Diabetes Hypertension Mother Diabetes Hypertension Maternal Grandmother Cancer Maternal Grandfather Cancer Paternal Uncle Stroke Brother No problems noted. Sister No problems noted. Sister No problems noted. Son No problems noted. Son No problems noted. Daughter No problems noted. Social History Housing: Apartment Alcohol intake: never Patient Tobacco Use Status: Former Tobacco user Tobacco use type: Cigarette e-Cigarette/Vaping Use: Never Used Second Hand Smoke Exposure: No service: No Current occupational status: disabled Current occupation: rt handed Cognitive needs: Yes Hearing needs: No Vision needs: No Physical Exam Vital Signs: BMI result Body Mass Index 29.7 Extrem Other: Right knee examination shows a minimal effusion, palpable crepitus with range of motion, pain with range of motion, no instability Office Procedures AMB Joint Injection/Aspiration Joint Injection/Aspiration Primary Site: right knee Prep: site was prepped using aseptic technique Injected: 20 mg of (Euflexxa viscosupplementation) and 1% plain lidocaine Procedure: The patient tolerated the procedure well Coding 30881 - Large joint Procedure code (CPT) selection complete Results Reviewed Results Reviewed: X-rays of the patient's right knee taken previously show joint space narrowing, subchondral sclerosis, no acute bony abnormalities Assessment & Plan Assessment & Plan (1) Osteoarthritis of right knee: Code(s): M17.11 - Unilateral primary osteoarthritis, right knee Category: Medical Plan Mr. Hari Santos presents with right knee pain due to osteoarthritis. The risks and benefits of a 3rd Euflexxa viscosupplementation injection were discussed at length with the patient. The patient wished to proceed. He tolerated the injection well. He will continue with his home exercise program. He will contact me prior to his follow-up appointment in 3 months should any questions or concerns arise. Feel free to call me at any time should questions regarding his orthopedic management arise. Orders: Orders AMB Joint Injection/Aspiration Today M17.11 - Unilateral primary osteoarthritis, right knee Coding Level of Care Code Procedure Only Diagnoses Osteoarthritis of right knee M17.11 CPT Codes Coding - 15909 Large joint: 17930 - Large joint ([id number])
--- OUTSIDE RECORDS SUMMARY | 2024-11-08 12:20 | XMS_ITS ---
Author Organization [facility] Address [address] [place] [address] Care Team Providers Care Home School Liaison Officer Name Role Phone Adelina Restrepo Primary Care Provider Unavailab Walt Britt Unavailable [phone] REASON FOR VISIT screening Encounters Encounter Location Date Provider Diagnosis [facility] Outpatient [address], [place] [phone] 05/19/2023 Walt Rain Plan Of Treatment No Information Progress Notes * KATIUSKA KOTHARI LDOB:[birth year] (54 yo M)Acc No.[id number]:05/19/2023 COLON WITH MAC Patient:?KATIUSKA KOTHARI Provider:?Walt Rain MD :1970???Age:52 Y???Sex:Male Lennox e:05/19/2023 Address:[address] [place], [place] [id number] Pcp:Adelina Grant Subjective: * Chief Complaints: * [...] MD Date:? 023 Generated for Goodi ng/Fatiffanieg/eTransmitting on:?11/08/2024 12:19 PM EDT
== END 2024-11-08 11:46 | disposition home or self-care (01) ==
LOC: HO.HOS 11:22
PROVIDERS: PCP Internal Medicine; Visit Provider Orthopaedic Surgery
DX: M17.11 Unilateral primary osteoarthritis, right knee (principal)
CPT/HCPCS: 20610

== ENCOUNTER → 2024-11-08 11:20 | Outpatient (BNVA) | payer MEDICARE, MEDICAID, SELFPAY | PROVIDERS: PCP Internal Medicine; Visit Provider Orthopaedic Surgery | DX: M17.11 Unilateral primary osteoarthritis, right knee (principal) | CPT/HCPCS: 20610; J2003; J7323 ==

== ENCOUNTER 2025-02-13 11:19 | Outpatient (AMB) | payer MEDICARE, MEDICAID, SELFPAY ==
--- NOTE | 2025-02-13 11:31 | A.OFFVIS_ITS ---
Vital Signs 02/13/25 11:33 Height 6 ft Weight 210 lb BMI 28.5 Intake Visit Reasons: OV s/p- RT knee Euflexxa inj 11/08/24 Intake Note: Ben is a 54 year old male who presents with complaints of right knee pain. The patient describes his pains as sharp in nature. He states that he can not tolerate cortisone injections because they increase his blood glucose levels. He has had viscosupplementation injections in the past which gave him fairly good relief. He has tried Tylenol, anti-inflammatory medicines and physical therapy which aggravated his pain. He wishes to hold off on surgery if at all possible. Allergies aspirin (ASA) Allergy (Severe, Verified 02/13/25 11:33) ANAPHYLAXIS gabapentin Allergy (Intermediate, Verified 02/13/25 11:33) sore thoat orphenadrine Allergy (Intermediate, Verified 02/13/25 11:33) restless legs ranitidine Allergy (Intermediate, Verified 02/13/25 11:33) restless leg tramadol Allergy (Intermediate, Verified 02/13/25 11:33) dry mouth, inadequate response Medication List - Last Reconciled 02/13/25 by Vic Aranda MD blood pressure monitor As directed blood sugar diagnostic (FreeStyle Lite Strips) 1 strip miscellaneous BID 30 days blood-glucose meter (FreeStyle Lite Meter kit) As directed cane As directed cetirizine 10 mg PO DAILY 90 days cholecalciferol (vitamin D3) 25 mcg PO DAILY 90 days [cpap 6-16cm h20 ] fluoxetine 60 mg PO DAILY hydroxyzine HCl 25 mg PO BID lancets (FreeStyle Lancets) 28 gauge topical BID 30 days metformin 1,000 mg (2 x 500 mg) PO BID 90 days oxycodone 10 mg PO TID PRN 30 days pregabalin 100 mg PO BID 30 days rosuvastatin 40 mg PO DAILY 90 days semaglutide (Ozempic) 2 mg (0.75 mL) subcut QWEEK 4 weeks sennosides (senna) 8.6 mg PO BEDTIME PRN 30 days trazodone 150 mg PO BEDTIME PRN 90 days vitamin E 400 units PO DAILY [facility] Medical History Allergic rhinitis Hypovitaminosis D Mild depression Fibromyalgia Essential hypertension Spinal cord stimulator status Right knee pain Left knee pain Right shoulder pain Radiculopathy, lumbar region Cervical postlaminectomy syndrome Impingement syndrome of right shoulder Radiculopathy, cervical OSKAR on CPAP Polyarthralgia Pure hypercholesterolemia Insomnia Depression Diabetes mellitus Elevated liver enzymes Knee pain Bilateral carpal tunnel syndrome Low back pain Neck pain Surgical History History of liver biopsy S/P placement of nerve stimulator H/O rotator cuff surgery H/O shoulder surgery History of cervical spinal surgery Family History Father Diabetes Hypertension Mother Diabetes Hypertension Maternal Grandmother Cancer Maternal Grandfather Cancer Paternal Uncle Stroke Brother No problems noted. Sister No problems noted. Sister No problems noted. Son No problems noted. Son No problems noted. Daughter No problems noted. Social History Housing: Apartment Alcohol intake: never Patient Tobacco Use Status: Former Tobacco user Tobacco use type: Cigarette e-Cigarette/Vaping Use: Never Used Second Hand Smoke Exposure: No service: No Current occupational status: disabled Current occupation: rt handed Cognitive needs: Yes Hearing needs: No Vision needs: No Physical Exam Vital Signs: BMI result Body Mass Index 28.5 Const Other: Well-nourished well-developed very friendly male awake alert and oriented x3 in no acute distress Extrem Other: Bilateral lower extremity examination shows good capillary refill, no skin lesions noted, normal sensation light touch Right knee examination shows minimal effusion, palpable crepitus with range of motion, pain with range of motion, no instability Results Reviewed Results Reviewed: X-rays of the patient's right knee taken previously show joint space narrowing, subchondral sclerosis, no acute bony abnormalities Assessment & Plan Assessment & Plan (1) Osteoarthritis of right knee: Code(s): M17.11 - Unilateral primary osteoarthritis, right knee Category: Medical Plan Mr. Hari Santos presents with right knee pain due to osteoarthritis. I had a lengthy discussion with the patient regarding the treatment options. He wishes to hold off on surgery if at all possible. I agree with this plan. I will see if the patient's insurance company will cover another series of 3 Euflexxa injections. I will see him back once the injections are available. Feel free to call me at any time should questions regarding his orthopedic management arise. I spent 20 minutes in reviewing the patient's records and imaging studies, seeing the patient and documenting in the medical record. Coding Level of Care Code Est Pt Level 3 (62274) Complex EM visit Add On G2211 Diagnoses Osteoarthritis of right knee M17.11
[2025-02-13 11:33] VITALS: BMI 28.5
--- OUTSIDE RECORDS SUMMARY | 2025-02-13 13:44 | XMS_ITS | Clinical Summary ---
Author Organization [facility] Address [address] [place] [phone] Phone Care Team Providers Care Retail Service Lead Merchandiser Name Role Phone Adelina Grant MD Primary Care Provider [phone] Allergies Active Allergy Reactions Criticality Noted Date Comments Aspirin Itching 08/15/2024 Medications No known medications Medical History Medical History Date Comments Diabetes mellitus ([facility] V24, [facility] V28) Hypertension Social History Tobacco Use [...] 87 08/15/2024 9:52 PM EDT Temperature 36.7 C (98.1 F) 08/15/2024 9:52 PM EDT Respiratory Rate 16 08/15/2024 9:52 PM EDT [...] 2022 Zoster Vaccines (1 of 2) 2022 Depression Screening 06/07/2024 Cholesterol Screening (Lipid Panel) 08/16/2024 Colorectal Cancer Screening: Colonoscopy 08/16/2024 HIV Screening 08/16/2024 Hepatitis C Screening 08/16/2024 Medicare Annual Wellness Visit 08/16/2024 Social Influencers of Health Screening 08/16/2024 DTaP,Tdap,and Td Vaccines (2 - Td or Tdap) 11/12/2024 11/12/2014 COVID-19 Vaccine (3 - 2024-2 6 season) 2025 09/24/2020, 08/27/2020 Influenza Vaccine (#1) 2025 , 05/10/2020 HIB Vaccines Aged Out No longer [...] GENERIC MEDICARE [place] - [place] Care Teams Retail Service Lead Merchandiser Relationship Specialty Start Date End Date Adelina Grant MD [address] [place] [address] , [facility] [[email or web address]] [address] [facility] Physician Associ D/B/A: [facility] Internal Medicine [place], [place] PCP - General Internal Medicine 12/28/17
--- OUTSIDE RECORDS SUMMARY | 2025-02-13 13:44 | XMS_ITS | Clinical Summary ---
Author Organization [facility] Address [address] [place] [address] Care Team Providers Care Speed Runner Name Role Phone Adelina Restrepo MD Primary [...] (1 of 2) 2022 Influenza Vaccine (#1) 2025 Pneumococcal Vaccine Aged Out No long er eligible based on patient's age to complete this topic RSV Ped < 20 months Aged Out No longe r eligible based on patient's age to complete this topic Care Teams Speed Runner Relationship Specialty Start Date End Date Adelina eRstrepo MD [address] [place] [address] , [address] [facility] Physician Associ D/B/A: [facility] Internal Medicine [place] [id number] PCP - General Internal Medicine 12/28/17
--- OUTSIDE RECORDS SUMMARY | 2025-02-13 13:44 | XMS_ITS | Patient Health Record ---
Author Organization [facility] Address [address] [place] [address] Care Team Providers Care Heel Gummer Name Role Phone Adelina Restrepo Primary Care Provider UnavailWalt Vasquez Unavailable [phone] Allergies Allergen (clinical drug ingredient) Drug/Non Drug [...] Problem Status W/U Status Risk Notes Problem 562688593 Colon cancer screening (Z12.11) Active confirmed Problem Constipation (66839326) Constipation (K59.00) Active confirmed Problem Diverticular disease of colon (248356321) Diverticulosis of large intestine without perforation or abscess without bleeding (K57.30) Active confirmed Problem Elevated liver enzymes level (988621613) Elevated liver function tests (R79.89) Active confirmed Problem 958081477 Elevated liver enzymes (R74.8) Active confirmed Problem 113860002 Fatty liver (K76.0) Active confirmed Problem 40620023079097731 Abnormal ultrasound of liver (R93.2) Active confirmed Problem 813282975 Liver lesion, right lobe (K76.9) Active confirmed Problem 45521707 Liver fibrosis (K74.00) Active confirmed Plan Of Treatment Pending Test Test Name Order Date BUN 03/10/2018 CREATININE 03/10/2018 LIVER PROFILE 10/08/2020 LIVER PROFILE 11/27/2020 LIVER PROFILE 04/29/2021 LIVER PROFILE 09/08/2018 LIVER PROFILE 02/24/2023 LIVER PROFILE 03/10/2018 LIVER PROFILE 06/14/2020 LIVER PROFILE 06/29/2020 IRON + IBC (FE) 03/10/2018 FERRITIN 03/10/2018 CBC w DIFF 06/29/2020 CBC w DIFF 03/10/2018 CBC w DIFF 02/24/2023 PROTHROMBIN TIME (PT, INR) 06/29/2020 PROTHROMBIN TIME (PT, INR) 03/10/2018 PARTIAL THROMBOPLASTIN TIME (PTT) 2020 HEPATITIS B, C PROFILE 03/10/2018 [id number] (A1A) 03/10/2018 ALPHA-FETOPROTEIN,TUMOR MARKER 3 ALPHA-FETOPROTEIN,TUMOR MARKER [...] AJ [address] [place] [address] [id number] ANDREW COLON, KATIUSKA Self - patient is the insured MEDICAID OF [employer] [address] [place] [phone] [id number] KATIUSKA KOTHARI Self - patient is the insured Medical (General) History Medical History History ICD Code Sleep apnea- uses CPAP Denies [place],CVA,Lung disease,renal disease Elevated LFT's--fatty liver- -w/u neg. [...]
== END 2025-02-13 12:11 | disposition home or self-care (01) ==
LOC: HO.HOS 11:20
PROVIDERS: PCP Internal Medicine; Visit Provider Orthopaedic Surgery
DX: M17.11 Unilateral primary osteoarthritis, right knee (principal)
CPT/HCPCS: 99213; G2211

== ENCOUNTER → 2025-02-13 11:19 | Outpatient (BNVA) | payer MEDICARE, MEDICAID, SELFPAY | PROVIDERS: PCP Internal Medicine; Visit Provider Orthopaedic Surgery | DX: M17.11 Unilateral primary osteoarthritis, right knee (principal); M25.561 Pain in right knee; Z79.899 Other long term (current) drug therapy | CPT/HCPCS: 99212 ==

== ENCOUNTER 2025-03-08 10:14 | Outpatient (REF) | payer MEDICARE, MEDICAID, SELFPAY ==
[2025-03-08 11:29] LABS: Alanine Aminotransferase 22 U/L (0-40); Albumin Level 4.5 g/dL (3.5-5.0); Alkaline Phosphatase 86 U/L (39-117); Anion Gap 9 (12-20); Aspartate Amino Transferase 27 U/L (5-37); Blood Urea Nitrogen 15 mg/dL (9-16); Calcium 9.5 mg/dL (8.4-10.2); Carbon Dioxide 30 mmol/L (22-29); Chloride 104 mmol/L (96-108); Cholesterol 207 mg/dL (<200); Estimated Glomerular Filt Rate > 60; HDL Cholesterol 34 mg/dL (>40); Potassium 4.5 mmol/L (3.3-5.1); Sodium 138 mmol/L (135-145); Total Protein 7.4 g/dL (6.5-8.0); Triglycerides 115 mg/dL (<150)
--- OUTSIDE RECORDS SUMMARY | 2025-03-08 11:41 | XMS_ITS | Clinical Summary ---
Author Organization [facility] Address [address] [place] [phone] Phone Care Team Providers Care Expansion Joint Builder Name Role Phone Adelina Grant MD Primary Care Provider [phone] Allergies Active Allergy Reactions Criticality Noted Date Comments Aspirin Itching 08/15/2024 Medications No known medications Medical History Medical History Date Comments Diabetes mellitus ([facility] V24, [facility] V28) Hypertension Social History Tobacco Use [...] Health Maintenance Due Date Last Done Comments Colorectal Cancer Screening: Colonoscopy 1972 Hepatitis B Vaccines (1 of 3 - 19+ 3-dose series) 1991 Pneumococcal Vaccine: 50+ Years (1 of 1 - PCV) 2022 Zoster Vaccines (1 of 2) 2022 Depression Screening 06/07/2024 Cholesterol Screening (Lipid Panel) 08/16/2024 HIV Screening 08/16/2024 Hepatitis C Screening 08/16/2024 Medicare Annual Wellness Visit 08/16/2024 Social Influencers of Health Screening 08/16/2024 DTaP,Tdap,and Td Vaccines (2 - Td or Tdap) 11/12/2024 11/12/2014 COVID-19 Vaccine (3 - 2024-2 6 season) 2025 09/24/2020, 08/27/2020 Influenza Vaccine (#1) 2025 , 05/10/2020 RSV Immunization Adult Patients (1 - 1-dose 75+ series) 2047 HIB Vaccines Aged Out No longer eligi [...] GENERIC MEDICARE [place] - [place] Care Teams Expansion Joint Builder Relationship Specialty Start Date End Date Adelina Grant MD [address] [facility] , [address] [facility] Physician Associ D/B/A: Wilfredo Zamarripa In Internal Medicine [place] Villalobos PCP - General Internal Medicine 12/28/17
--- OUTSIDE RECORDS SUMMARY | 2025-03-08 11:41 | XMS_ITS | Patient Health Record ---
Author Organization [facility] Address [address] [place] [address] Care Team Providers Care Clinical Writer Name Role Phone Adelina Restrepo Primary Care Provider Walt Gaytan Unavailable [phone] Allergies Allergen (clinical drug ingredient) Drug/Non Drug [...] Problem Status W/U Status Risk Notes Problem 137606525 Colon cancer screening (Z12.11) Active confirmed Problem Constipation (92640269) Constipation (K59.00) Active confirmed Problem Diverticular disease of colon (012829476) Diverticulosis of large intestine without perforation or abscess without bleeding (K57.30) Active confirmed Problem Elevated liver enzymes level (475475988) Elevated liver function tests (R79.89) Active confirmed Problem 699907400 Elevated liver enzymes (R74.8) Active confirmed Problem 677185438 Fatty liver (K76.0) Active confirmed Problem 47899890479053314 Abnormal ultrasound of liver (R93.2) Active confirmed Problem 477371598 Liver lesion, right lobe (K76.9) Active confirmed Problem 47473838 Liver fibrosis (K74.00) Active confirmed Plan Of [...] (PTT) 2020 HEPATITIS B, C PROFILE 03/10/2018 [id number] (A1A) 03/10/2018 ALPHA-FETOPROTEIN,TUMOR MARKER 3 ALPHA-FETOPROTEIN,TUMOR MARKER [...] AJ [address] [place] [address] [id number] ANDREW COLON, KATIUSKA Self - patient is the insured MEDICAID OF [employer] [address] [place] [phone] [id number] KATIUSKA KOTHARI Self - patient is the insured Medical (General) History Medical History History ICD Code Sleep apnea- uses CPAP Denies [place],CVA,Lung disease,renal disease Elevated LFT's--fatty liver- -w/u neg. [...]
--- OUTSIDE RECORDS SUMMARY | 2025-03-08 11:41 | XMS_ITS | Clinical Summary ---
Author Organization [facility] Address [address] [place] [address] Care Team Providers Care Motorman/Woman Name Role Phone Adelina Restrepo MD Primary [...] age to complete this topic Care Teams Motorman/Woman Relationship Specialty Start Date End Date Adelina Restrepo MD [address] [place] [address] , [address] [facility] Physician Associ D/B/A: Wilfredo Zamarripa In Internal Medicine [place] [address] PCP - General Internal Medicine 12/28/17
[2025-03-08 11:43] LABS: Microalbum/Creatinine Ratio Ur 2.7 ug/mg cr (<30)
== END 2025-03-08 10:15 | disposition home or self-care (01) ==
LOC: HO.LAB 10:14
PROVIDERS: PCP Internal Medicine; Visit Provider Internal Medicine
DX: E11.9 Type 2 diabetes mellitus without complications (principal); E78.5 Hyperlipidemia, unspecified; E55.9 Vitamin D deficiency, unspecified; R80.9 Proteinuria, unspecified
CPT/HCPCS: 36415; 80053; 80061; 82043; 82306; 82570

== ENCOUNTER 2025-03-12 13:34 | Outpatient (AMB) | payer MEDICARE, MEDICAID, SELFPAY ==
[2025-03-12 13:42] VITALS: BP 124/88; PULSE 89; TEMP 36.4; O2SAT 98; BMI 28.2
--- NOTE | 2025-03-12 13:42 | A.OFFPC_ITS ---
Vital Signs 03/12/25 13:42 Height 6 ft Weight 208 lb 2 oz BMI 28.2 BP 124/88 Blood Pressure Location Lt brachial Position Sitting Pulse 89 Pulse Source Pulse Oximeter Temp 97.5 F Temp Source Temporal Artery Scan Pulse Oximetry (%) 98 Oxygen Delivery Method Room Air Intake Visit Reasons: dm Meat Dresser Required: No Accompanied by: Self / Same As Patient Allergies aspirin (ASA) Allergy (Severe, Verified 03/12/25 14:05) ANAPHYLAXIS gabapentin Allergy (Intermediate, Verified 03/12/25 14:05) sore thoat orphenadrine Allergy (Intermediate, Verified 03/12/25 14:05) restless legs ranitidine Allergy (Intermediate, Verified 03/12/25 14:05) restless leg tramadol Allergy (Intermediate, Verified 03/12/25 14:05) dry mouth, inadequate response Medication List - Last Reconciled 03/12/25 by Adelina Grant MD blood pressure monitor As directed blood sugar diagnostic (FreeStyle Lite Strips) 1 strip miscellaneous BID 30 days blood-glucose meter (FreeStyle Lite Meter kit) As directed cane As directed cetirizine 10 mg PO DAILY 90 days cholecalciferol (vitamin D3) 25 mcg PO DAILY 90 days [cpap 6-16cm h20 ] fluoxetine 60 mg PO DAILY hydroxyzine HCl 25 mg PO BID lancets (FreeStyle Lancets) 28 gauge topical BID 30 days metformin 1,000 mg (2 x 500 mg) PO BID 90 days oxycodone 10 mg PO TID PRN 30 days pregabalin 100 mg PO BID 30 days rosuvastatin 40 mg PO DAILY 90 days semaglutide (Ozempic) 2 mg (0.75 mL) subcut QWEEK 4 weeks sennosides (senna) 8.6 mg PO BEDTIME PRN 30 days trazodone 150 mg PO BEDTIME PRN 90 days vitamin E 400 units PO DAILY Tobacco use date assessed: 03/12/25 Dental Screening Dental Screen Date: 03/12/25 Did you have a dental visit in the last 12 months?: No Did you have a dental problem in the last 6 months where you did not have access to dental care?: No Was dental information given to patient?: No HPI HPI Comments History of Present Illness0 Details The patient is a 54-year-old male presenting for follow-up on chronic conditions including diabetes, depression, hyperlipidemia, and chronic pain. The patient's diabetes is currently well-managed with an A1c of 5.8%, which is below the target of 7%. He is on metformin twice daily and Ozempic 2 mg once a week. The patient has hyperlipidemia with a total cholesterol level of 207 mg/dL and an LDL of 150 mg/dL, which is above the desired level of 70 mg/dL. He is prescribed rosuvastatin 40 mg, which he takes inconsistently, and is advised to take it daily at night. Chronic pain is primarily in the back and neck, with less severity in the knees. The patient has received injections in the right knee, including a gel injection, following an MRI. The patient has a history of depression, which is currently controlled with fluoxetine 60 mg and hydroxyzine. The patient experiences constipation and uses senna as needed for relief. He has a history of smoking but has since quit and does not consume alcohol. [facility] Medical History Allergic rhinitis Hypovitaminosis D Mild depression Fibromyalgia Essential hypertension Spinal cord stimulator status Right knee pain Left knee pain Right shoulder pain Radiculopathy, lumbar region Cervical postlaminectomy syndrome Impingement syndrome of right shoulder Radiculopathy, cervical OSKAR on CPAP Polyarthralgia Pure hypercholesterolemia Insomnia Depression Diabetes mellitus Elevated liver enzymes Knee pain Bilateral carpal tunnel syndrome Low back pain Neck pain Surgical History History of liver biopsy S/P placement of nerve stimulator H/O rotator cuff surgery H/O shoulder surgery History of cervical spinal surgery Family History Father Diabetes Hypertension Mother Diabetes Hypertension Maternal Grandmother Cancer Maternal Grandfather Cancer Paternal Uncle Stroke Brother No problems noted. Sister No problems noted. Sister No problems noted. Son No problems noted. Son No problems noted. Daughter No problems noted. Social History Housing: Apartment Alcohol intake: never Patient Tobacco Use Status: Former Tobacco user Tobacco use type: Cigarette e-Cigarette/Vaping Use: Never Used Second Hand Smoke Exposure: No service: No Current occupational status: disabled Current occupation: rt handed Cognitive needs: Yes Hearing needs: No Vision needs: No Questionnaire PHQ-9 Over the last 2 weeks, how often have you been bothered by any of the following problems? 1. Little interest or pleasure in doing things: more than half the days 2. Feeling down, depressed, or hopeless: several days 3. Trouble falling or staying asleep, or sleeping too much: more than half the days 4. Feeling tired or having little energy: more than half the days 5. Poor appetite or overeating: several days 6. Feeling bad about yourself - or that you are a failure or have let yourself or your family down: several days 7. Trouble concentrating on things, such as reading the newspaper or watching television: more than half the days 8. Moving or speaking so slowly that other people could have noticed. Or the opposite - being so fidgety or restless that you have been moving around a lot more than usual: several days 9. Thoughts that you would be better off or of hurting yourself in some way: not at all Total score: 12 Depression Screening Interpretation: Positive Depression Screening Follow-up: Existing condition, In treatment, Community Mental Health Worker F/U and Follow- up Visit Requested Depression Screening Done: Yes 45501 - PHQ-9 Billing: Yes Source: Developed by Drs. Walt Arnold, Latanya Miller, Juan Carvalho and colleagues, with an educational jenna from [employer]. Thrive Questionnaire Date Thrive assessed: 07/06/24 I am a: Patient What is your living situation today?: I have a steady place to live Within the past 12 months, did the food you bought not last and you didn't have the money to get more?: Never true Within the past 12 months, did you worry whether your food would run out before you got money to buy more?: Sometimes True Do you have trouble paying for medicines?: No Do you have trouble getting transportation to medical appointments?: No Do you have trouble paying your heating and electricity bill?: No Do you have trouble taking care of your child, family member or friend?: Yes Do you have trouble with day-to-day activities such as bathing, preparing meals, shopping, managing finances, etc.?: Yes Are you currently unemployed and looking for a job?: I choose not to answer this question Are you interested in more education?: No Please select the resources that you would like help with: None Currently or been in a relationship where the following occur: I choose not to answer THRIVE Score: 1 AUDIT C Alcohol Use Questionnaire (AUDIT-C) 1. How often do you have a drink containing alcohol?: Never 3. How often do you have six or more drinks on one occasion?: Never Total Score: 0 Score Reviewed/Action Taken: No DAVID-7 AMB Questionnaire DAVID-7 Date DAVID - 7 assessed: 07/06/24 Feeling nervous, anxious, or on edge: 2 = More than half the days Not being able to stop or control worryin = Several days Worrying too much about different things: 2 = More than half the days Trouble relaxin = More than half the days Being so restless that it is hard to sit still: 2 = More than half the days Becoming easily annoyed or irritable: 1 = Several days Feeling afraid as if something awful might happen: 0 = Not at all Total DAVID-7 score (0-4 normal; 5-9 mild; 10-14 moderate; 15-21 severe): 10 Source: Developed by Drs. Walt Arnold, Latanya Miller, Juan Carvalho and colleagues, with an educational jenna from [employer]. DAVID-7 Assessment Billing DAVID-7 Assessment Tool: DAVID-7 Assessment 23994 Review of Systems Const All systems reviewed & are unremarkable except as noted in HPI and below Card Denies chest pain at rest, Denies chest pain with activity, Denies edema, Denies irregular heart rhythm, Denies claudication, Denies dyspnea, Denies dyspnea on exertion, Denies orthopnea, Denies paroxysmal nocturnal dyspnea and Denies slow heart rate Resp Denies cough, Denies dyspnea and Denies dyspnea on exertion GI Denies abdominal pain, Denies change in bowel habits, Denies excessive flatus, Denies nausea and Denies vomiting Physical exam (Primary Care) Vital Signs: Last Vital Signs Temp 97.5 F 03/12/25 13:42 Pulse 89 03/12/25 13:42 BP 124/88 03/12/25 13:42 Pulse Ox 98 03/12/25 13:42 Oxygen Delivery Method Room Air 03/12/25 13:42 BMI result Body Mass Index 28.2 Tobacco/Smoking Status: Tobacco use Status Tobacco use date assessed 03/12/25 03/12/25 13:47 Patient Tobacco Use Status Former Tobacco user 03/12/25 13:47 Tobacco use type Cigarette 03/12/25 13:47 e-Cigarette/Vaping Use Never Used 03/12/25 13:47 PHQ-9: PHQ-9 Score PHQ-9: Total score 12 03/12/25 13:47 Depression Screening Interpretation: Positive Depression Screening Follow-up: Existing condition, In treatment, Community Mental Health Worker F/U and Follow-up Visit Requested Thrive Assessment: Date of Thrive Assessment Date Thrive assessed 07/06/24 03/12/25 13:47 Currently or been in a relationship where the following occur: I choose not to answer Resp Effort & Inspection: normal respiratory effort Auscultation: clear to auscultation bilaterally Cardio Jugular venous distension: no JVD Rate: regular rate Rhythm: regular rhythm Heart sounds: S1 normal heart sound present and S2 normal heart sound present Extrem General: Yes full ROM Results AMB Hemoglobin A1c AMB Hemoglobin A1c 5.8 % Last Edit by Liset Luu CMA on 03/12/25 13:54 Results Reviewed Results Reviewed: Laboratory Last Values Hgb A1c (Clinic) 5.8 % (4.0-6.0) 03/12/25 13:47 Coding Level of Care Code Est Pt Level 4 (70461) Complex EM visit Add On G2211 Diagnoses Type 2 diabetes mellitus without complication, without long-term current use of insulin E11.9 Diabetes mellitus type: type 2 Diabetes mellitus rn long term care insulin use: without rn long term care use Diabetes mellitus complication status: without complication Pure hypercholesterolemia E78.00 Mild depression F32.0 Hypovitaminosis D E55.9 Radiculopathy, cervical M54.12 Additional Codes PHQ-9 - 35285 - PHQ-9 Billing: Yes ([id number]) DAVID-7 Assessment Billing - DAVID-7 Assessment Tool: DAVID-7 Assessment 99868 ([id number]) Time Spent (min) 21 Assessment & Plan Assessment & Plan (1) Diabetes mellitus: Comment: NIDDM Code(s): E11.9 - Type 2 diabetes mellitus without complications Category: Medical Qualifiers: Diabetes mellitus type: type 2 Diabetes mellitus shelter insulin use: without shelter use Diabetes mellitus complication status: without complication Qualified Code(s): E11.9 - Type 2 diabetes mellitus without complications (2) Pure hypercholesterolemia: Code(s): E78.00 - Pure hypercholesterolemia, unspecified Category: Medical (3) Mild depression: Code(s): F32.0 - Major depressive disorder, single episode, mild Category: Medical (4) Hypovitaminosis D: Code(s): E55.9 - Vitamin D deficiency, unspecified Category: Medical (5) Radiculopathy, cervical: Code(s): M54.12 - Radiculopathy, cervical region Category: Medical Plan Plan Patient was informed and verbally consented to the use of an ambient scribe for clinic note documentation during this visit. 1. Diabetes Mellitus The patient's diabetes is well-controlled with an A1c of 5.8%. He is advised to continue current medications, including metformin and Ozempic. 2. Hyperlipidemia The patient is advised to take rosuvastatin 40 mg daily at night to manage elevated cholesterol levels. 3. Chronic Pain The patient reports chronic pain in the back and neck, with less severity in the knees. He has received knee injections, including a gel injection, following an MRI. 4. Depression The patient's depression is controlled with fluoxetine and hydroxyzine. 5. Constipation The patient uses senna as needed for constipation relief. Orders: Orders Microalbumin, Random (w Creat) 4 Months R80.9 - Proteinuria, unspecified Vitamin D 25-OH Total 4 Months E55.9 - Vitamin D deficiency, unspecified Vitamin B12 and Folate 4 Months E53.8 - Deficiency of other specified B group vitamins Comprehensive [place]. Panel Fast 4 Months E11.9 - Type 2 diabetes mellitus without complications AMB Hemoglobin A1c Today Z13.9 - Encounter for screening, unspecified Lipid Panel 4 Months E78.5 - Hyperlipidemia, unspecified
--- OUTSIDE RECORDS SUMMARY | 2025-03-12 15:54 | XMS_ITS | Clinical Summary ---
Author Organization [facility] Address [address] [place] [address] Care Team Providers Care Logistic Specialist Name Role Phone Adelina Restrepo MD [...] age to complete this topic Care Teams Logistic Specialist Relationship Specialty Start Date End Date Adelina Restrepo MD [address] [place] [address] , [address] [facility] Physician Associ D/B/A: Wilfredo Zamarripa In Internal Medicine [place] [address] PCP - General Internal Medicine 12/28/17
--- OUTSIDE RECORDS SUMMARY | 2025-03-12 15:54 | XMS_ITS | Clinical Summary ---
Author Organization [facility] Address [address] [place] [phone] Phone Care Team Providers Care Equine Manager Name Role Phone Adelina Grant MD Primary Care Provider [phone] Allergies Active Allergy Reactions Criticality Noted Date Comments Aspirin Itching 08/15/2024 Medications No known medications Medical History Medical History Date Comments Diabetes mellitus ([facility] V24, [facility] V28) Hypertension Social History Tobacco Use [...] GENERIC MEDICARE [place] - [place] Care Teams Equine Manager Relationship Specialty Start Date End Date Adelina Grant MD [address] [facility] , [address] [facility] Physician Associ D/B/A: Wilfredo Zamarripa In Internal Medicine AJ Villalobos PCP - General Internal Medicine 12/28/17
--- OUTSIDE RECORDS SUMMARY | 2025-03-12 15:55 | XMS_ITS | Patient Health Record ---
Author Organization [facility] Address [address] [place] [address] Care Team Providers Care Railroad Inspector Name Role Phone Adelina Restrepo Primary Care Provider UnavailWalt Vasquez Unavailable [phone] Allergies Allergen (clinical drug ingredient) Drug/Non Drug [...] Problem Status W/U Status Risk Notes Problem [id number] Colon cancer screening (Z12.11) Active confirmed Problem Constipation (12779167) Constipation (K59.00) Active confirmed Problem Diverticular disease of colon (199042537) Diverticulosis of large intestine without perforation or abscess without bleeding (K57.30) Active confirmed Problem Elevated liver enzymes level (644459591) Elevated liver function tests (R79.89) Active confirmed Problem 563927268 Elevated liver enzymes (R74.8) Active confirmed Problem 960210606 Fatty liver (K76.0) Active confirmed Problem 82209800115918723 Abnormal ultrasound of liver (R93.2) Active confirmed Problem 619905707 Liver lesion, right lobe (K76.9) Active confirmed Problem 05427049 Liver fibrosis (K74.00) Active confirmed Plan Of [...] (PTT) 2020 HEPATITIS B, C PROFILE 03/10/2018 [id number] (A1A) 03/10/2018 ALPHA-FETOPROTEIN,TUMOR MARKER 3 ALPHA-FETOPROTEIN,TUMOR MARKER [...] AJ [address] [place] [address] [id number] ANDREW COLON, KATIUSKA Self - patient is the insured MEDICAID OF [place] [address] [place] [id number] KATIUSKA KOTHARI Self - patient is the [...]
== END 2025-03-12 14:13 | disposition home or self-care (01) ==
LOC: HO.HMCH 13:35
PROVIDERS: PCP Internal Medicine; Visit Provider Internal Medicine
DX: E11.9 Type 2 diabetes mellitus without complications (principal); E78.00 Pure hypercholesterolemia, unspecified; F32.0 Major depressive disorder, single episode, mild; E55.9 Vitamin D deficiency, unspecified; M54.12 Radiculopathy, cervical region; Z13.9 Encounter for screening, unspecified

== ENCOUNTER → 2025-03-12 13:34 | Outpatient (BNVA) | payer MEDICARE, MEDICAID, SELFPAY | PROVIDERS: PCP Internal Medicine; Visit Provider Internal Medicine | DX: E11.9 Type 2 diabetes mellitus without complications (principal); F32.A Depression, unspecified; G89.29 Other chronic pain; M54.12 Radiculopathy, cervical region; K59.00 Constipation, unspecified; E78.00 Pure hypercholesterolemia, unspecified; F32.0 Major depressive disorder, single episode, mild; E55.9 Vitamin D deficiency, unspecified; R80.9 Proteinuria, unspecified; E53.8 Deficiency of other specified B group vitamins; E78.5 Hyperlipidemia, unspecified; Z87.891 Personal history of nicotine dependence | CPT/HCPCS: 83036; 96127; 99212 ==

== ENCOUNTER 2025-05-15 14:31 | Outpatient (AMB) | payer MEDICARE, MEDICAID, SELFPAY ==
--- NOTE | 2025-05-15 14:39 | MHC.OFFVIS ---
Vital Signs 05/15/25 14:41 Height 6 ft Weight 208 lb BMI 28.2 Intake Visit Reasons: right knee Durolane Intake Note: Ben is a 54 year old male who presents with complaints of right knee pain. He describes his pain as sharp in nature. His pain has gotten worse over the last 3 months in spite of continued non operative treatments. He has had cortisone injections in the past which gave him minimal relief. He has also had viscosupplementation injections which gave him good relief. He wishes to hold off on surgery if at all possible. Allergies aspirin (ASA) Allergy (Severe, Verified 05/15/25 14:39) ANAPHYLAXIS gabapentin Allergy (Intermediate, Verified 05/15/25 14:39) sore thoat orphenadrine Allergy (Intermediate, Verified 05/15/25 14:39) restless legs ranitidine Allergy (Intermediate, Verified 05/15/25 14:39) restless leg tramadol Allergy (Intermediate, Verified 05/15/25 14:39) dry mouth, inadequate response Medication List - Last Reconciled 05/16/25 by Vic Aranda MD blood pressure monitor As directed blood sugar diagnostic (FreeStyle Lite Strips) 1 strip miscellaneous BID 30 days blood-glucose meter (FreeStyle Lite Meter kit) As directed cane As directed cetirizine 10 mg PO DAILY 90 days cholecalciferol (vitamin D3) 25 mcg PO DAILY 90 days [cpap 6-16cm h20 ] fluoxetine 60 mg PO DAILY hydroxyzine HCl 25 mg PO BID lancets (FreeStyle Lancets) 28 gauge topical BID 30 days metformin 1,000 mg (2 x 500 mg) PO BID 90 days oxycodone 10 mg PO TID PRN 30 days pregabalin 100 mg PO BID 30 days rosuvastatin 40 mg PO DAILY 90 days semaglutide (Ozempic) 2 mg (0.75 mL) subcut QWEEK 4 weeks sennosides (senna) 8.6 mg PO BEDTIME PRN 30 days trazodone 150 mg PO BEDTIME PRN 90 days vitamin E 400 units PO DAILY [facility] Medical History Allergic rhinitis Hypovitaminosis D Mild depression Fibromyalgia Essential hypertension Spinal cord stimulator status Right knee pain Left knee pain Right shoulder pain Radiculopathy, lumbar region Cervical postlaminectomy syndrome Impingement syndrome of right shoulder Radiculopathy, cervical OSKAR on CPAP Polyarthralgia Pure hypercholesterolemia Insomnia Depression Diabetes mellitus Elevated liver enzymes Knee pain Bilateral carpal tunnel syndrome Low back pain Neck pain Surgical History History of liver biopsy S/P placement of nerve stimulator H/O rotator cuff surgery H/O shoulder surgery History of cervical spinal surgery Family History Father Diabetes Hypertension Mother Diabetes Hypertension Maternal Grandmother Cancer Maternal Grandfather Cancer Paternal Uncle Stroke Brother No problems noted. Sister No problems noted. Sister No problems noted. Son No problems noted. Son No problems noted. Daughter No problems noted. Social History Housing: Apartment Alcohol intake: never Patient Tobacco Use Status: Former Tobacco user Tobacco use type: Cigarette e-Cigarette/Vaping Use: Never Used Second Hand Smoke Exposure: No service: No Current occupational status: disabled Current occupation: rt handed Cognitive needs: Yes Hearing needs: No Vision needs: No Physical Exam Vital Signs: BMI result Body Mass Index 28.2 Extrem Other: Right knee examination shows a minimal effusion, palpable crepitus with range of motion, pain with range of motion, no instability Office Procedures AMB Joint Injection/Aspiration Joint Injection/Aspiration Primary Site: Right Knee Prep: site was prepped using aseptic technique Injected: 60 mg of, Durolane, with 3 mL of and 1% plain Lidocaine Procedure: The patient tolerated the procedure well Coding 23213 - Large joint Procedure code (CPT) selection complete Results Reviewed Results Reviewed: X-rays of the patient's right knee taken previously show joint space narrowing, subchondral sclerosis, no acute bony abnormalities Assessment & Plan Assessment & Plan (1) Osteoarthritis of right knee: Code(s): M17.11 - Unilateral primary osteoarthritis, right knee Category: Medical Plan Mr. Hari Santos presents with right knee pain due to osteoarthritis. The risks and benefits of a Durolane viscosupplementation injection were discussed at length with the patient. The patient wished to proceed. Tolerated the injection well. He will continue with his home exercise program. He will contact me prior to his follow-up appointment in 3 months should any questions or concerns arise. Feel free to call me at any time should questions regarding his orthopedic management arise. I spent 22 minutes in reviewing the patient's records and imaging studies, seeing the patient and documenting in the medical record. Orders: Orders AMB Joint Injection/Aspiration 05/15/25 M17.11 - Unilateral primary osteoarthritis, right knee Coding Level of Care Code Est Pt Level 3 (05257) Complex visit Add On G2211 Diagnoses Osteoarthritis of right knee M17.11 CPT Codes Coding - 41263 Large joint: 31388 - Large joint ([id number])
[2025-05-15 14:41] VITALS: BMI 28.2
== END 2025-05-15 14:56 | disposition home or self-care (01) ==
LOC: HO.HOS 14:32
PROVIDERS: PCP Internal Medicine; Visit Provider Orthopaedic Surgery
DX: M17.11 Unilateral primary osteoarthritis, right knee (principal)
CPT/HCPCS: 20610; 99213

== ENCOUNTER → 2025-05-15 14:31 | Outpatient (BNVA) | payer MEDICARE, MEDICAID, SELFPAY | PROVIDERS: PCP Internal Medicine; Visit Provider Orthopaedic Surgery | DX: M17.11 Unilateral primary osteoarthritis, right knee (principal); M25.561 Pain in right knee | CPT/HCPCS: 20610; 99212; J2003; J7318 ==